=== PATIENT | female | born 1955 | race Caucasian/White ===

== ENCOUNTER 2017-03-08 21:42 | Emergency (ER) | payer BC ==
[2017-03-08] MEDS ORDERED: HYDROmorphone 1 MG/ML SYRINGE IVP STA (22:12)
[2017-03-08] MEDS ORDERED: ONDANSETRON 4 MG/2 ML VIAL IVP STA (22:12)
[2017-03-08] MEDS ORDERED: SODIUM CHLORIDE 0.9% 1,000 ML IV ONE (22:12)
--- NOTE | 2017-03-08 22:15 | ED Physician Documentation ---
PD HPI NVD - Stated complaint Stated Complaint: VOMITING - Chief complaint Chief Complaint: Abd Pain - History obtained from History obtained from: Patient, Family - History of Present Illness Timing - onset: Enter time (0700), Today Timing - duration: Hours Timing - details: Abrupt onset, Still present Associated symptoms: Fever, Abdominal pain, Dizzy, Loss of appetite, Other ( diarrhea) Contributing factors: No: Sick contact Improved by: Vomiting Worsened by: Position, Palpation Similar symptoms before: Diagnosis (abdominal migraine) Recently seen: Not recently seen - Additonal information Additional information: 61 y/o female s/p gastric sleeve placement has developed acute nausea and vomiting this morning with diarrhea. She has a history of abdominal migraine and feels this is different as she does not usually have diarrhea with this. She reports feeling well each day of the preceding week. Review of Systems Constitutional: reports: Fever, Chills Eyes: denies: Decreased vision Ears: denies: Ear pain Nose: denies: Rhinorrhea / runny nose, Congestion Throat: denies: Sore throat Cardiac: denies: Chest pain / pressure, Palpitations Respiratory: denies: Dyspnea, Cough GI: reports: Abdominal Pain, Nausea, Vomiting, Diarrhea : denies: Dysuria, Frequency Skin: denies: Rash Musculoskeletal: reports: Back pain. denies: Neck pain Neurologic: denies: Generalized weakness, Focal weakness, Numbness PD PAST MEDICAL HISTORY - Past Medical History Cardiovascular: Hypertension, High cholesterol, Murmur Respiratory: Sleep apnea, CPAP use Neuro: Motion sickness Endocrine/Autoimmune: Type 1 diabetes GI: GERD, Chronic constipation : Kidney stones Musculoskeletal: Chronic back pain Derm: Eczema - Past Surgical History Past Surgical History: Yes General: Cholecystectomy - Present Medications Home Medications: Ambulatory Orders Medication Instructions Recorded Confirmed Amlodipine Besylate 10 mg PO DAILY 04/08/13 12/27/15 Aspirin Chewable [[place] 81 mg PO ONCE 04/08/13 12/27/15 Aspirin] Insulin Glargine,Hum.rec.anlog 80 unit SQ BID 04/08/13 12/27/15 [Lantus] Omeprazole [PriLOSEC] 20 mg PO BIDAC 04/08/13 12/27/15 Amitriptyline HCl 100 mg PO QPM 08/22/15 12/27/15 Atorvastatin Calcium 40 mg PO QPM 08/22/15 12/27/15 Chlorthalidone 25 mg PO DAILY 08/22/15 12/27/15 Lisinopril 40 mg PO DAILY 08/22/15 12/27/15 metFORMIN [Glucophage] 1,000 mg PO BIDWM 08/22/15 12/27/15 Mupirocin 2% Oint [Bactroban 2% 1 applic TOP TID #15 g 09/21/15 12/27/15 Oint] Sumatriptan [Imitrex] 25 mg PO BID PRN #10 tablet 10/03/15 12/27/15 Polyethylene Glycol 3350 [Miralax] 17 gm PO DAILY #527 gm 02/24/16 Dicyclomine [Bentyl] 20 mg PO QID PRN #20 capsule 03/20/16 Promethazine [Phenergan] 25 - 50 mg PO Q6H PRN #30 tab 03/20/16 Metoclopramide [Reglan] 10 mg PO Q6H PRN #30 tablet 06/07/16 Ondansetron Odt [Zofran] 4 mg TL Q6H PRN #30 tablet 06/07/16 Ondansetron Odt [Zofran] 4 mg TL Q6H PRN #10 tablet 03/09/17 - Allergies Allergies/Adverse Reactions: Allergies Allergy/AdvReac Type Severity Reaction Status Date / Time rosuvastatin calcium * Allergy Hives Verified 03/08/17 21:44 [From [facility]] - Social History Does the pt smoke?: No Smoking Status: Never smoker Does the pt drink ETOH?: No Does the pt have substance abuse?: No - Immunizations Immunizations are current?: Yes - POLST Patient has POLST: No PD ED PE NORMAL - Vitals Vital signs reviewed: Yes (febrile, tachy and hypertensive ) - General General: Well developed/nourished - HEENT HEENT: Atraumatic, PERRL, EOMI - Neck Neck: Supple, no meningeal sign, No bony TTP - Cardiac Cardiac: RRR, Other (2/6 harsh holosystolic murmer at LSB) - Respiratory Respiratory: No respiratory distress, Clear bilaterally - Abdomen Abdomen: Soft, Other (mild epigastric tenderness without garding or rebound. surgical scars are without inflamation. ) - Back Back: No CVA TTP, No spinal TTP - Derm Derm: Normal color, Warm and dry, No rash - Extremities Extremities: No deformity, No edema - Neuro Neuro: No motor deficit, No sensory deficit - Psych Psych: Normal mood, Normal affect Results - Vitals Vitals: Vital Signs - 24 hr 03/08/17 03/08/17 03/08/17 21:44 22:20 22:47 Temperature 37.6 C H 37.8 C H Heart Rate 107 H 83 104 H Respiratory 18 18 16 Rate Blood Pressure 165/81 H 104/62 169/67 H O2 Saturation 99 96 99 03/08/17 03/08/17 03/09/17 22:50 22:51 00:37 Temperature 37.0 C Heart Rate 96 96 93 Respiratory 15 Rate Blood Pressure 95/47 L 100/55 L O2 Saturation 78 L 99 95 Oxygen O2 Source Room air - Labs Labs: Laboratory Tests 03/08/17 03/08/17 03/08/17 22:43 22:43 22:43 WBC 9.5 RBC 4.04 L Hgb 12.0 Hct 36.9 L MCV 91.3 MCH 29.8 MCHC 32.6 RDW 14.6 Plt Count 222 MPV 8.7 Neut # 8.7 H Lymph # 0.7 L [place] # 0.2 Eos # 0.0 Baso # 0.0 Absolute Nucleated RBC 0.00 Nucleated RBCs 0.0 Sodium 141 Potassium 4.0 Chloride 104 Carbon Dioxide 23 Anion Gap 14.0 H BUN 42 H Creatinine 1.4 H Estimated GFR (MDRD) 38 L Glucose 328 H Calcium 9.6 Total Bilirubin 0.6 AST 28 ALT 48 Alkaline Phosphatase 120 Troponin I 0.04 Total Protein 7.3 Albumin 4.2 Globulin 3.1 Albumin/Globulin Ratio 1.4 Lipase 30 Urine Color Urine Clarity Urine pH Ur Specific [place] Urine Protein Urine Glucose (UA) Urine Ketones Urine Occult Blood Urine Nitrite Urine Bilirubin Urine Urobilinogen Ur Leukocyte Esterase Urine RBC Urine WBC Ur Squamous Epith Cells Urine Bacteria Ur Microscopic Review Urine Culture Comments 03/09/17 00:24 WBC RBC Hgb Hct MCV MCH MCHC RDW Plt Count MPV Neut # Lymph # [place] # Eos # Baso # Absolute Nucleated RBC Nucleated RBCs Sodium Potassium Chloride Carbon Dioxide Anion Gap BUN Creatinine Estimated GFR (MDRD) Glucose Calcium Total Bilirubin AST ALT Alkaline Phosphatase Troponin I Total Protein Albumin Globulin Albumin/Globulin Ratio Lipase Urine Color YELLOW Urine Clarity CLEAR Urine pH 5.5 Ur Specific [place] 1.025 Urine Protein 30 H Urine Glucose (UA) 500 H Urine Ketones TRACE Urine Occult Blood TRACE-LYSE Urine Nitrite NEGATIVE Urine Bilirubin NEGATIVE Urine Urobilinogen 0.2 (NORMAL) Ur Leukocyte Esterase NEGATIVE Urine RBC 0-5 Urine WBC 0-3 Ur Squamous Epith Cells RARE Squamous Urine Bacteria None Seen Ur Microscopic Review INDICATED Urine Culture Comments NOT INDICATED PD MEDICAL DECISION MAKING - ED course Complexity details: reviewed old records, reviewed results, re-evaluated patient , considered differential, d/w patient, d/w family ED course: 61 y/o female feels improved after fluids pain medication and zofran. Departure - Departure Disposition: 01 Home, Self Care Clinical Impression: Abdominal migraine, not intractable Condition: Stable Instructions: ED Diet Vomiting Diarrhea Follow-Up: Valerie Haque MD [Primary Care Provider] - Prescriptions: Ondansetron Odt [Zofran] 4 mg TL Q6H PRN #10 tablet PRN Reason: Nausea / Vomiting
[2017-03-08] MEDS ORDERED: ONDANSETRON 4 MG/2 ML VIAL ONE (22:45)
[2017-03-08] MEDS ORDERED: HYDROmorphone 1 MG/ML SYRINGE ONE (22:45)
[2017-03-08 22:51] LABS: BASOPHILS % (AUTO) 0.3 %; HCT - HEMATOCRIT 36.9 % (37.0-47.0); LYMPHOCYTES # (AUTO) 0.7 10^3/uL (1.5-3.5); MEAN CORPUSCULAR HEMOGLOBIN 29.8 pg (27.0-31.0); MEAN CORPUSCULAR HGB CONC 32.6 g/dL (32.0-36.0); MEAN CORPUSCULAR VOLUME 91.3 fL (81.0-99.0); MEAN PLATELET VOLUME 8.7 fL (7.9-10.8); MONOCYTES # (AUTO) 0.2 10^3/uL (0.0-1.0); MONOCYTES % (AUTO) 1.7 %; NEUTROPHILS # (AUTO) 8.7 10^3/uL (1.5-6.6); RED BLOOD COUNT 4.04 10^6/uL (4.20-5.40); RED CELL DISTRIBUTION WIDTH 14.6 % (12.0-15.0); UNCORRECTED WHITE BLOOD COUNT 9.5 x10^3/uL; WHITE BLOOD COUNT 9.5 x10^3/uL (4.8-10.8)
[2017-03-08 23:19] LABS: ALBUMIN/GLOBULIN RATIO 1.4 (1.0-2.2); BILIRUBIN,TOTAL 0.6 mg/dL (0.2-1.0); CALCIUM 9.6 mg/dL (8.5-10.3); CREATININE 1.4 mg/dL (0.4-1.0); TOTAL PROTEIN 7.3 g/dL (6.7-8.2)
[2017-03-09 00:33] LABS: BILIRUBIN,URINE NEGATIVE (NEGATIVE); PH,URINE 5.5 PH (5.0-7.5); UA w/ MICROSCOPIC CHARGE YES
[2017-03-09 00:37] VITALS: BP 100/55
[2017-03-09 00:40] LABS: UR CULTURE IF IND NOT INDICATED; WBC,URINE 0-3 /HPF (0-5)
== END 2017-03-09 00:57 | disposition home or self-care (01) ==
LOC: ED 21:42
DX: G43.D0 Abdominal migraine, not intractable (principal); I10 Essential (primary) hypertension; E10.9 Type 1 diabetes mellitus without complications; Z79.4 Long term (current) use of insulin; Z79.82 Long term (current) use of aspirin
CPT/HCPCS: 36415; 80053; 81001; 83690; 84484; 85025; 96374; 96375; 99283; 99284; J1170; 81003; 87086

== ENCOUNTER 2018-10-08 10:29 | Outpatient (CLI) | payer BC | END 2018-10-08 10:30 | disposition home or self-care (01) | LOC: RT 10:29 | PROVIDERS: ATTEND Internal Medicine Cardiovascular Disease | DX: Z95.2 Presence of prosthetic heart valve (principal) | CPT/HCPCS: 93005 ==

== ENCOUNTER 2019-06-28 09:58 | Outpatient (CLI) | payer BC ==
--- NOTE | 2019-06-28 16:43 | Mammography Report ---
Reason: ROUTINE MAMMO Procedure Date: 06/28/2019 Accession Number: [id number] / [id number] Procedure: MGS - Screening Mammo Dig Bilat CPT Code: FULL RESULT: EXAM: Screening Mammo Dig Bilat DATE: 06/28/2019 10:28 AM CLINICAL HISTORY: Routine screening. No reported personal or family history of breast cancer. TECHNIQUE: (B) - Bilateral CC and MLO views were obtained. COMPARISON: None PARENCHYMAL PATTERN: (A) - The breasts demonstrate scattered fibroglandular densities bilaterally. FINDINGS: Bilateral breasts: There are no suspicious masses, calcifications, or areas of distortion. IMPRESSION: Negative examination. BI-RADS category 1. RECOMMENDATION: (ANNUAL) - Recommend routine annual screening mammography. BI-RADS CATEGORY: (1) - Negative. STANDARD QUALIFYING STATEMENTS: 1. This examination was reviewed with the aid of Computer-Aided Detection (CAD). 2. A negative or benign imaging report should not preclude biopsy if clinically suspicious findings are present. 3. Dense breasts may obscure an underlying neoplasm. 4. This examination was reviewed without the aid of 3D breast imaging (tomosynthesis).
== END 2019-06-28 09:59 | disposition home or self-care (01) ==
LOC: DI.S 09:58
DX: Z12.31 Encounter for screening mammogram for malignant neoplasm of breast (principal)
CPT/HCPCS: 77067

== ENCOUNTER 2019-08-28 07:03 | Emergency (ER) | payer BC ==
[2019-08-28] MEDS ORDERED: SODIUM CHLORIDE 0.9% 1,000 ML IV ONE (07:33)
[2019-08-28] MEDS ORDERED: ONDANSETRON 4 MG/2 ML VIAL IVP STA (07:33)
[2019-08-28 07:34] LABS: BILIRUBIN,URINE NEGATIVE (NEGATIVE); GLUCOSE, URINE (UA) 500 mg/dL (NEGATIVE); KETONES,URINE (UA) NEGATIVE (NEGATIVE); LEUKOCYTE ESTERASE, URINE SMALL (NEGATIVE); NITRITE,URINE NEGATIVE (NEGATIVE); OCCULT BLOOD,URINE MODERATE (NEGATIVE); PH,URINE 6.5 PH (5.0-7.5); PROTEIN,URINE 100 mg/dL (NEGATIVE); UROBILINOGEN,URINE 0.2 (NORMAL) E.U./dL (NORMAL)
[2019-08-28] MEDS ORDERED: MORPHINE 10 MG/ML VIAL IVP STA (07:34)
[2019-08-28] MEDS ORDERED: FAMOTIDINE 20 MG/2 ML VIAL IVP STA (07:34)
[2019-08-28 07:55] LABS: BASOPHILS % (AUTO) 0.1 %; HGB - HEMOGLOBIN 11.3 g/dL (12.0-16.0); LYMPHOCYTES # (AUTO) 0.5 10^3/uL (1.5-3.5); MEAN CORPUSCULAR HEMOGLOBIN 29.7 pg (27.0-31.0); MEAN CORPUSCULAR HGB CONC 31.9 g/dL (32.0-36.0); MEAN CORPUSCULAR VOLUME 92.9 fL (81.0-99.0); MEAN PLATELET VOLUME 10.1 fL (7.9-10.8); MONOCYTES # (AUTO) 0.1 10^3/uL (0.0-1.0); MONOCYTES % (AUTO) 1.6 %; NEUTROPHILS # (AUTO) 7.5 10^3/uL (1.5-6.6); NEUTROPHILS % (AUTO) 91.8 %; PLT - PLATELET COUNT 199 10^3/uL (130-450); RED BLOOD COUNT 3.81 10^6/uL (4.20-5.40); RED CELL DISTRIBUTION WIDTH 13.2 % (12.0-15.0); WHITE BLOOD COUNT 8.2 x10^3/uL (4.8-10.8)
[2019-08-28 07:58] LABS: CLARITY,URINE SL. CLOUDY (CLEAR)
[2019-08-28 08:00] LABS: BACTERIA,URINE Many /HPF (None Seen); SQUAMOUS EPITHELIAL CELL,UR RARE Squamous (<= Few); WBC CLUMPS,URINE PRESENT
[2019-08-28 08:05] LABS: ALBUMIN 4.4 g/dL (3.2-5.5); ALBUMIN/GLOBULIN RATIO 1.4 (1.0-2.2); BILIRUBIN,TOTAL 0.6 mg/dL (0.2-1.0); CALCIUM 9.4 mg/dL (8.5-10.3); CREATININE 1.8 mg/dL (0.4-1.0); MAGNESIUM 2.5 mg/dL (1.7-2.8); TOTAL PROTEIN 7.6 g/dL (6.7-8.2)
[2019-08-28] MEDS ORDERED: cefTRIAXone 1 GM VIAL IVP STA (08:28)
[2019-08-28] MEDS ORDERED: HALOPERIDOL 5 MG/ML VIAL IVP ONE (08:28)
[2019-08-28 10:34] VITALS: BP 140/73
--- NOTE | 2019-08-28 10:38 | ED Physician Documentation ---
PD HPI NVD - Stated complaint Stated Complaint: VOMITING - Chief complaint Chief Complaint: General - History obtained from History obtained from: Patient - History of Present Illness Timing - onset: Last night Timing - details: Abrupt onset, Still present Associated symptoms: Abdominal pain (mild lower abd after vomiting and diarrhea). No: Fever, Near syncope / syncope Contributing factors: No: Sick contact, Bad food, Travel Improved by: No: Vomiting Worsened by: Eating Similar symptoms before: Has not had sx before Recently seen: Not recently seen Review of Systems Constitutional: reports: Fatigue. denies: Fever, Chills Nose: denies: Rhinorrhea / runny nose, Congestion Throat: denies: Sore throat Respiratory: denies: Cough GI: reports: Abdominal Pain, Nausea, Vomiting, Diarrhea. denies: Abdominal Swelling : denies: Dysuria, Frequency PD PAST MEDICAL HISTORY - Past Medical History Past Medical History: Yes Cardiovascular: Hypertension, High cholesterol, Murmur Respiratory: Sleep apnea, CPAP use Endocrine/Autoimmune: Type 1 diabetes GI: GERD, Chronic constipation : Kidney stones Musculoskeletal: Chronic back pain Derm: Eczema - Past Surgical History Past Surgical History: Yes General: Cholecystectomy - Present Medications Home Medications: Ambulatory Orders Medication Instructions Recorded Confirmed Aspirin Chewable [[facility] [place] 81 mg PO ONCE 04/08/13 08/28/19 Aspirin] Omeprazole [PriLOSEC] 20 mg PO DAILY 04/08/13 10/08/18 Atorvastatin Calcium 40 mg PO QPM 08/22/15 10/08/18 Lisinopril 40 mg PO DAILY 08/22/15 10/08/18 Cephalexin [Keflex] 500 mg PO TID #15 capsule 08/28/19 Diphenoxylate/Atropine [Lomotil] 1 each PO QID PRN #12 tablet 08/28/19 Furosemide [Lasix] 20 mg PO DAILY 08/28/19 08/28/19 Insulin Glargine [Lantus Solostar] 25 unit SUBQ BID 08/28/19 08/28/19 Ondansetron Odt [Zofran] 4 mg TL Q6H PRN #10 tablet 08/28/19 amLODIPine [Norvasc] 10 mg PO DAILY 08/28/19 08/28/19 - Allergies Allergies/Adverse Reactions: Allergies Allergy/AdvReac Type Severity Reaction Status Date / Time rosuvastatin calcium * Allergy Hives Verified 03/08/17 21:44 [From [facility]] - Social History Does the pt smoke?: No Smoking Status: Never smoker Does the pt drink ETOH?: No Does the pt have substance abuse?: No - Immunizations Immunizations are current?: Yes - POLST Patient has POLST: No PD ED PE NORMAL - Vitals Vital signs reviewed: Yes - General General: Alert and oriented X 3, No acute distress (holding emesis bag with some dry heaving. ), Well developed/nourished - HEENT HEENT: Moist mucous membranes, Pharynx benign - Neck Neck: Supple, no meningeal sign, No adenopathy - Cardiac Cardiac: RRR, No murmur - Respiratory Respiratory: Clear bilaterally - Abdomen Abdomen: Soft, Non distended, No organomegaly, Other (some tender nonfocally in mid to lower abd without guarding nor percussion tenderness. ) - Female Female : Deferred - Rectal Rectal: Deferred - Back Back: No CVA TTP - Derm Derm: Normal color, Warm and dry - Extremities Extremities: Normal ROM s pain, No edema, No calf tenderness / cord Results - Vitals Vitals: Vital Signs - 24 hr 08/28/19 08/28/19 08/28/19 07:17 08:45 08:52 Temperature 36.5 C Heart Rate 101 H 93 Respiratory 20 17 Rate Blood Pressure 175/61 H 156/72 H O2 Saturation 95 82 L 96 08/28/19 08/28/19 08/28/19 09:30 09:39 10:00 Temperature Heart Rate 83 84 Respiratory 16 15 Rate Blood Pressure 106/64 140/73 H O2 Saturation 98 98 98 Oxygen O2 Source Room air - Labs Labs: Laboratory Tests 08/28/19 08/28/19 08/28/19 07:24 07:40 07:40 WBC 8.2 RBC 3.81 L Hgb 11.3 L Hct 35.4 L MCV 92.9 MCH 29.7 MCHC 31.9 L RDW 13.2 Plt Count 199 MPV 10.1 Neut # (Auto) 7.5 H Lymph # (Auto) 0.5 L [place] # (Auto) 0.1 Eos # (Auto) 0.0 Baso # (Auto) 0.0 Absolute Nucleated RBC 0.00 Nucleated RBC % 0.0 Sodium 142 Potassium 4.3 Chloride 107 Carbon Dioxide 23 Anion Gap 12.0 BUN 58 H Creatinine 1.8 H Estimated GFR (MDRD) 28 L Glucose 290 H Calcium 9.4 Magnesium 2.5 Total Bilirubin 0.6 AST 30 ALT 27 Alkaline Phosphatase 65 Total Protein 7.6 Albumin 4.4 Globulin 3.2 Albumin/Globulin Ratio 1.4 Lipase 38 Urine Color YELLOW Urine Clarity SL. CLOUDY Urine pH 6.5 Ur Specific [place] 1.015 Urine Protein 100 H Urine Glucose (UA) 500 H Urine Ketones NEGATIVE Urine Occult Blood MODERATE H Urine Nitrite NEGATIVE Urine Bilirubin NEGATIVE Urine Urobilinogen 0.2 (NORMAL) Ur Leukocyte Esterase SMALL H Urine RBC 6-10 H Urine WBC >25 H Urine WBC Clumps PRESENT Ur Squamous Epith Cells RARE Squamous Urine Bacteria Many H Ur Microscopic Review INDICATED Urine Culture Comments INDICATED PD MEDICAL DECISION MAKING - ED course Complexity details: re-evaluated patient (improved symptoms and abd minimally tender lower abd. Low suspicion for divertic/appy, and patient comfortable going home with shared decision making. ), considered differential (likely viral GE. She does have UTI, but I think is incidental. ), d/w patient Departure - Departure Disposition: Home, Self Care Clinical Impression: Nausea vomiting and diarrhea UTI (urinary tract infection) Qualifiers: Urinary tract infection type: acute cystitis Hematuria presence: without hematuria Qualified Code(s): N30.00 - Acute cystitis without hematuria Condition: Stable Record reviewed to determine appropriate education?: Yes Instructions: ED Diet Vomiting Diarrhea Follow-Up: Valerie Haque MD [Primary Care Provider] - Prescriptions: Cephalexin [Keflex] 500 mg PO TID #15 capsule Diphenoxylate/Atropine [Lomotil] 1 each PO QID PRN #12 tablet PRN Reason: Diarrhea Ondansetron Odt [Zofran] 4 mg TL Q6H PRN #10 tablet PRN Reason: Nausea / Vomiting Comments: This most likely is a viral illness and may last for a day or 2. Use ondansetron if needed for nausea and Lomotil for diarrhea. Tylenol for cramps or pains. Recheck if not improved well over the next day or 2 back to normal. Return if worse again or any localized pain consistently, fevers, bloody stools, other concerns. There is sign of a bladder infection on his urine test. This likely is incidental and not the cause of your diarrhea and such. Discharge Date/Time: 08/28/19 10:54
== END 2019-08-28 10:54 | disposition home or self-care (01) ==
LOC: ED 07:03
DX: R11.2 Nausea with vomiting, unspecified (principal); R19.7 Diarrhea, unspecified; N30.00 Acute cystitis without hematuria; I10 Essential (primary) hypertension; E10.9 Type 1 diabetes mellitus without complications; Z87.442 Personal history of urinary calculi; Z79.82 Long term (current) use of aspirin
CPT/HCPCS: 36415; 80053; 81001; 81003; 83690; 83735; 85025; 87086; 87181; 96361; 96374; 96375; 99284

== ENCOUNTER 2019-10-03 22:20 | Emergency (ER) | payer BC ==
--- NOTE | 2019-10-03 22:31 | ED Physician Documentation ---
PD HPI ABD PAIN - Stated complaint Stated Complaint: N/V - Chief complaint Chief Complaint: Abd Pain - History obtained from History obtained from: Patient - History of Present Illness Timing - onset: How many hours ago (5), Today Timing - duration: Hours (5) Timing - details: Abrupt onset, Still present Quality: Cramping, Aching, Pain Location: Suprapubic, LLQ Radiation: Lower back Improved by: No: Vomiting Worsened by: Palpation. No: Breathing, Position Associated symptoms: Nausea, Vomiting (few times), Diarrhea (loose movements few times), Other (sugars have been okay recently. No URI symptoms.). No: Fever, Constipation, Dysuria Similar symptoms before: No diagnosis (had similar a month ago, improved with fluids/meds. Has had similar episodes remotely in past.) Recently seen: Emergency Dept (1 month ago, with similar symptoms. Improved after 1-2 days anf thought viral GE.) Review of Systems Constitutional: denies: Fever, Chills Nose: denies: Rhinorrhea / runny nose, Congestion Throat: denies: Sore throat Respiratory: denies: Cough GI: reports: Abdominal Pain (lower abd into lower back), Nausea, Vomiting, Diarrhea. denies: Abdominal Swelling, Constipation, Hematemesis, Bloody / black stool : denies: Dysuria, Frequency Musculoskeletal: reports: Back pain. denies: Neck pain Neurologic: reports: Generalized weakness. denies: Altered mental status, Headache PD PAST MEDICAL HISTORY - Past Medical History Cardiovascular: Hypertension, High cholesterol, Murmur Respiratory: Sleep apnea, CPAP use Endocrine/Autoimmune: Type 1 diabetes GI: GERD, Chronic constipation : Kidney stones Musculoskeletal: Chronic back pain Derm: Eczema - Past Surgical History Past Surgical History: Yes General: Cholecystectomy - Present Medications Home Medications: Ambulatory Orders Medication Instructions Recorded Confirmed Aspirin Chewable [[facility] [place] 81 mg PO ONCE 04/08/13 08/28/19 Aspirin] Omeprazole [PriLOSEC] 20 mg PO DAILY 04/08/13 10/08/18 Atorvastatin Calcium 40 mg PO QPM 08/22/15 10/08/18 lisinopriL [Lisinopril] 40 mg PO DAILY 08/22/15 10/08/18 Cephalexin [Keflex] 500 mg PO TID #15 capsule 08/28/19 Diphenoxylate/Atropine [Lomotil] 1 each PO QID PRN #12 tablet 08/28/19 Furosemide [Lasix] 20 mg PO DAILY 08/28/19 08/28/19 Insulin Glargine [Lantus Solostar] 25 unit SUBQ BID 08/28/19 08/28/19 Ondansetron Odt [Zofran] 4 mg TL Q6H PRN #10 tablet 08/28/19 amLODIPine [Norvasc] 10 mg PO DAILY 08/28/19 08/28/19 Dicyclomine [Bentyl] 10 mg PO QID PRN #15 capsule 10/04/19 Ondansetron Odt [Zofran] 4 mg TL Q6H PRN #10 tablet 10/04/19 - Allergies Allergies/Adverse Reactions: Allergies Allergy/AdvReac Type Severity Reaction Status Date / Time rosuvastatin calcium * Allergy Hives Verified 10/03/19 22:26 [From [facility]] - Social History Does the pt smoke?: No Smoking Status: Never smoker Does the pt drink ETOH?: No Does the pt have substance abuse?: No - Immunizations Immunizations are current?: Yes - POLST Patient has POLST: No PD ED PE NORMAL - Vitals Vital signs reviewed: Yes - General General: Alert and oriented X 3, Well developed/nourished, Other (Appears uncomfortable related to nausea and is having some mild emesis and holding an emesis bag. Her emesis is slightly bilious in fluid without any blood.) - HEENT HEENT: Ears normal, Moist mucous membranes, Pharynx benign - Neck Neck: Supple, no meningeal sign, No adenopathy - Cardiac Cardiac: RRR, No murmur - Respiratory Respiratory: Clear bilaterally - Abdomen Abdomen: Soft, Non distended, No organomegaly, Other (Umbilical hernia noted which is soft and nontender and reducible. markedly obese.). No: Normal bowel sounds (diminished) - Female Female : Deferred - Rectal Rectal: Deferred - Back Back: No CVA TTP - Derm Derm: Normal color, Warm and dry - Extremities Extremities: No tenderness to palpate, Normal ROM s pain - Neuro Neuro: Alert and oriented X 3, No motor deficit, Normal speech Results - Vitals Vitals: Vital Signs - 24 hr 10/03/19 10/04/19 10/04/19 22:23 00:07 00:49 Temperature 36.7 C Heart Rate 95 87 77 Respiratory 20 18 16 Rate Blood Pressure 177/71 H 172/67 H 140/94 H O2 Saturation 96 99 96 10/04/19 10/04/19 02:03 03:15 Temperature 36.9 C Heart Rate 89 72 Respiratory 14 Rate Blood Pressure 102/45 L 123/59 L O2 Saturation 96 98 Oxygen O2 Source Nasal cannula Oxygen Flow Rate 3.5 - Labs Labs: Laboratory Tests 10/03/19 10/03/19 10/03/19 23:00 23:00 23:00 WBC 9.3 RBC 3.74 L Hgb 10.7 L Hct 35.4 L MCV 94.7 MCH 28.6 MCHC 30.2 L RDW 13.4 Plt Count 247 MPV 10.3 Neut # (Auto) 7.8 H Lymph # (Auto) 0.9 L [place] # (Auto) 0.4 Eos # (Auto) 0.1 Baso # (Auto) 0.0 Absolute Nucleated RBC 0.00 Nucleated RBC % 0.0 VBG pH 7.444 H VBG pCO2 33.1 L VBG pO2 52.2 H VBG HCO3 22.2 L VBG Total CO2 23.2 L VBG O2 Saturation 87.7 H VBG Base Excess -1.3 Sodium 142 Potassium 4.6 Chloride 107 Carbon Dioxide 22 Anion Gap 13.0 BUN 56 H Creatinine 2.2 H Estimated GFR (MDRD) 22 L Glucose 286 H Calcium 9.1 Magnesium 2.4 Total Bilirubin 0.6 AST 27 ALT 24 Alkaline Phosphatase 57 Total Protein 7.0 Albumin 4.2 Globulin 2.8 Albumin/Globulin Ratio 1.5 Lipase 63 H Urine Color Urine Clarity Urine pH Ur Specific [place] Urine Protein Urine Glucose (UA) Urine Ketones Urine Occult Blood Urine Nitrite Urine Bilirubin Urine Urobilinogen Ur Leukocyte Esterase Urine RBC Urine WBC Ur Squamous Epith Cells Urine Bacteria Ur Microscopic Review Urine Culture Comments Serum Ketones NEGATIVE 10/03/19 23:50 WBC RBC Hgb Hct MCV MCH MCHC RDW Plt Count MPV Neut # (Auto) Lymph # (Auto) [place] # (Auto) Eos # (Auto) Baso # (Auto) Absolute Nucleated RBC Nucleated RBC % VBG pH VBG pCO2 VBG pO2 VBG HCO3 VBG Total CO2 VBG O2 Saturation VBG Base Excess Sodium Potassium Chloride Carbon Dioxide Anion Gap BUN Creatinine Estimated GFR (MDRD) Glucose Calcium Magnesium Total Bilirubin AST ALT Alkaline Phosphatase Total Protein Albumin Globulin Albumin/Globulin Ratio Lipase Urine Color YELLOW Urine Clarity CLEAR Urine pH 7.0 Ur Specific [place] 1.015 Urine Protein 30 H Urine Glucose (UA) 500 H Urine Ketones NEGATIVE Urine Occult Blood TRACE-INTA Urine Nitrite NEGATIVE Urine Bilirubin NEGATIVE Urine Urobilinogen 0.2 (NORMAL) Ur Leukocyte Esterase NEGATIVE Urine RBC 0-5 Urine WBC 0-3 Ur Squamous Epith Cells RARE Squamous Urine Bacteria Rare Ur Microscopic Review INDICATED Urine Culture Comments NOT INDICATED Serum Ketones - Rads (name of study) abd CT Radiology: Prelim report reviewed, EMP read contemporaneously (done without contrast due to low GFR), See rad report PD MEDICAL DECISION MAKING - ED course Complexity details: re-evaluated patient (She did feel much improved after several rounds of medicine and was able to then take oral fluids and some crackers. She felt able to be discharged home.), considered differential (Consider viral gastroenteritis versus urinary tract process or diverticulitis. No history of colitis regularly. She is diabetic so consider gastroparesis. Her hernia is soft and reducible so does not seem obstruction related to that. Onset of her symptoms was after eating so consider food related. ), d/w patient Departure - Departure Disposition: 01 Home, Self Care Clinical Impression: Nausea and vomiting Qualifiers: Vomiting type: unspecified Vomiting Intractability: intractable Qualified Code(s): R11.2 - Nausea with vomiting, unspecified Condition: Stable Record reviewed to determine appropriate education?: Yes Instructions: ED Nausea Vomiting Follow-Up: Valerie Haque MD [Primary Care Provider] - Prescriptions: Dicyclomine [Bentyl] 10 mg PO QID PRN #15 capsule PRN Reason: Abdominal Pain Ondansetron Odt [Zofran] 4 mg TL Q6H PRN #10 tablet PRN Reason: Nausea / Vomiting Comments: Small frequent fluids and usual medications. [place] food initially and progress as tolerated. Ondansetron if needed for nausea. Dicyclomine if needed for abdominal cramps or pains. Add Tylenol if needed. Recheck if not improved consistently over the next couple of days and return if worsening. Your blood tests and CT scan did not show any obvious acute cause. This may be some intestinal dysfunction (gastroparesis) or a mild infectious process such as a viral stomach flu or even food related. Most of these will be short lived for just a day or 2 and then improve. Discharge Date/Time: 10/04/19 03:15
[2019-10-03] MEDS ORDERED: SODIUM CHLORIDE 0.9% 1,000 ML IV ONE (22:44)
[2019-10-03] MEDS ORDERED: ONDANSETRON 4 MG/2 ML VIAL IVP STA (22:44)
[2019-10-03] MEDS ORDERED: MORPHINE 10 MG/ML VIAL IVP STA (22:44)
[2019-10-03 23:05] LABS: BASOPHILS % (AUTO) 0.4 %; EOSINOPHILS # (AUTO) 0.1 10^3/uL (0.0-0.7); EOSINOPHILS % (AUTO) 0.8 %; HGB - HEMOGLOBIN 10.7 g/dL (12.0-16.0); LYMPHOCYTES # (AUTO) 0.9 10^3/uL (1.5-3.5); LYMPHOCYTES % (AUTO) 9.8 %; MEAN CORPUSCULAR HEMOGLOBIN 28.6 pg (27.0-31.0); MEAN CORPUSCULAR HGB CONC 30.2 g/dL (32.0-36.0); MEAN CORPUSCULAR VOLUME 94.7 fL (81.0-99.0); MEAN PLATELET VOLUME 10.3 fL (7.9-10.8); MONOCYTES # (AUTO) 0.4 10^3/uL (0.0-1.0); MONOCYTES % (AUTO) 4.3 %; NEUTROPHILS # (AUTO) 7.8 10^3/uL (1.5-6.6); NEUTROPHILS % (AUTO) 84.3 %; PLT - PLATELET COUNT 247 10^3/uL (130-450); RED BLOOD COUNT 3.74 10^6/uL (4.20-5.40); RED CELL DISTRIBUTION WIDTH 13.4 % (12.0-15.0); VBG BASE EXCESS -1.3 mmol/L (-2 - +2); VBG PCO2 33.1 mmHg (41-51); VBG PH 7.444 (7.31-7.41); VBG PO2 52.2 mmHg (25-47); VBG TOTAL CO2 23.2 mmol/L (24-29); WHITE BLOOD COUNT 9.3 x10^3/uL (4.8-10.8)
[2019-10-03 23:11] LABS: KETONES, SERUM (ACETEST) NEGATIVE (NEGATIVE)
[2019-10-03 23:24] LABS: ALBUMIN 4.2 g/dL (3.2-5.5); ALBUMIN/GLOBULIN RATIO 1.5 (1.0-2.2); ALKALINE PHOSPHATASE 57 IU/L (42-121); ALT ALANINE AMINOTRANSFERASE 24 IU/L (10-60); AST ASPARTATE AMINOTRANSFERASE 27 IU/L (10-42); BILIRUBIN,TOTAL 0.6 mg/dL (0.2-1.0); BUN - BLOOD UREA NITROGEN 56 mg/dL (6-20); CALCIUM 9.1 mg/dL (8.5-10.3); CARBON DIOXIDE - CO2 22 mmol/L (21-32); CHLORIDE 107 mmol/L (101-111); CREATININE 2.2 mg/dL (0.4-1.0); GFR - MDRD 22 (>89); GLUCOSE 286 mg/dL (70-100); LIPASE 63 U/L (22-51); MAGNESIUM 2.4 mg/dL (1.7-2.8); SODIUM 142 mmol/L (135-145)
[2019-10-03] MEDS ORDERED: PROCHLORPERAZINE 10 MG/2 ML VIAL IVP STA (23:48)
[2019-10-04 00:02] LABS: BILIRUBIN,URINE NEGATIVE (NEGATIVE); GLUCOSE, URINE (UA) 500 mg/dL (NEGATIVE); KETONES,URINE (UA) NEGATIVE (NEGATIVE); LEUKOCYTE ESTERASE, URINE NEGATIVE (NEGATIVE); NITRITE,URINE NEGATIVE (NEGATIVE); OCCULT BLOOD,URINE TRACE-INTA (NEGATIVE); PROTEIN,URINE 30 mg/dL (NEGATIVE); UROBILINOGEN,URINE 0.2 (NORMAL) E.U./dL (NORMAL)
[2019-10-04 00:04] LABS: CLARITY,URINE CLEAR (CLEAR)
[2019-10-04] MEDS ORDERED: SODIUM CHLORIDE 0.9% 1,000 ML IV ONE (00:04)
[2019-10-04 00:15] LABS: BACTERIA,URINE Rare /HPF (None Seen); RBC,URINE 0-5 /HPF (0-5); SQUAMOUS EPITHELIAL CELL,UR RARE Squamous (<= Few)
[2019-10-04] MEDS ORDERED: HYDROmorphone 1 MG/ML CARPUJECT IVP STA (01:14)
[2019-10-04] MEDS ORDERED: diphenhydrAMINE INJ 50 MG/ML VIAL IVP STA (01:14)
[2019-10-04] MEDS ORDERED: PROCHLORPERAZINE 10 MG/2 ML VIAL IVP STA (01:14)
--- NOTE | 2019-10-04 01:42 | CT Report ---
Reason: left abd pain Procedure Date: 10/04/2019 Accession Number: [id number] / [id number] Procedure: CT - Abdomen/Pelvis WO CPT Code: Final Report FULL RESULT: EXAM: CT ABDOMEN AND PELVIS (CT KUB) EXAM DATE: 10/04/2019 01:17 AM. CLINICAL HISTORY: Left abdominal pain. COMPARISONS: ABDOMEN/PELVIS W/ 04/10/2013 3:56 PM. TECHNIQUE: Routine axial helical CT imaging was performed through the abdomen and pelvis without IV contrast, reportedly no IV contrast due to reduced renal function. Reconstructions: Coronal and sagittal. In accordance with CT protocol optimization, one or more of the following dose reduction techniques were utilized for this exam: automated exposure control, adjustment of mA and/or KV based on patient size, or use of iterative reconstructive technique. FINDINGS: Lung Bases: Interstitial edema. Previous TAVR. Severe mitral annular calcifications. No effusion. Small hiatal hernia. Right Kidney/Ureter: Punctate nonobstructing right renal stone. No ureteral stones, hydronephrosis, or hydroureter. No perinephric fat stranding. Left Kidney/Ureter: No renal stones seen. Small parapelvic cysts. No ureteral stones, hydronephrosis, or hydroureter. No perinephric fat stranding. Other Solid Organs: Noncontrast images of the solid organs are grossly unremarkable. Gallbladder/Bile Ducts: Unremarkable postcholecystectomy. Peritoneal Cavity: Small hiatal hernia. Previous gastric sleeve. Colonic diverticulosis without acute diverticulitis seen. Patient has a chronic periumbilical hernia which contains mostly fat but also a knuckle of transverse colon with adjacent edema. No evidence of any significant upstream obstruction however. Hernia defect measures approximately 2.5 x 2.5 cm with a larger 10 x 8 x 12 cm hernia sac. Bowel otherwise appears grossly unremarkable with the exception of a small rectocele. Pelvic Organs: Pelvic floor laxity with small rectocele. Large chronic calcified uterine fibroid posteriorly. No worrisome adnexal masses. Urinary bladder unremarkable. Vasculature: Unremarkable. Other: No definite acute osseous abnormality with chronic compression deformities of T12 and L1 again noted. IMPRESSION: 1. Tiny nonobstructing right renal stone. No ureteral stone or hydronephrosis currently. 2. Periumbilical hernia containing mostly fat but also a knuckle of squeezed transverse colon with mild adjacent edema. No evidence of proximal obstruction however. Early incarceration is possible however in the appropriate clinical setting. 3. Interstitial edema at the lung bases. 4. Severe mitral annular calculations. 5. Small hiatal hernia. 6. Colonic diverticulosis. 7. Previous cholecystectomy and gastric sleeve. 8. Fibroid uterus. RADIA
[2019-10-04] MEDS ORDERED: ONDANSETRON ODT 4 MG Prepack 2 TL PRN (02:58)
[2019-10-04 03:17] VITALS: BP 123/59
== END 2019-10-04 03:15 | disposition home or self-care (01) ==
LOC: ED 22:20
DX: R11.2 Nausea with vomiting, unspecified (principal); R10.32 Left lower quadrant pain; K42.9 Umbilical hernia without obstruction or gangrene; K44.9 Diaphragmatic hernia without obstruction or gangrene; K21.9 Gastro-esophageal reflux disease without esophagitis; D25.9 Leiomyoma of uterus, unspecified; Z90.49 Acquired absence of other specified parts of digestive tract; I10 Essential (primary) hypertension; E10.9 Type 1 diabetes mellitus without complications; Z79.82 Long term (current) use of aspirin
CPT/HCPCS: 36415; 74176; 80053; 81001; 82009; 82803; 83690; 83735; 85025; 96361; 96374; 96375; 99284; 99285; J1170; J1200; 81003; 87086

== ENCOUNTER 2019-11-01 09:52 | Emergency (ER) | payer BC ==
[2019-11-01 11:23] LABS: BASOPHILS % (AUTO) 0.2 %; HGB - HEMOGLOBIN 11.5 g/dL (12.0-16.0); LYMPHOCYTES # (AUTO) 0.6 10^3/uL (1.5-3.5); LYMPHOCYTES % (AUTO) 5.2 %; MEAN CORPUSCULAR HGB CONC 31.9 g/dL (32.0-36.0); MEAN CORPUSCULAR VOLUME 90.7 fL (81.0-99.0); MEAN PLATELET VOLUME 10.5 fL (7.9-10.8); MONOCYTES # (AUTO) 0.2 10^3/uL (0.0-1.0); MONOCYTES % (AUTO) 1.6 %; NEUTROPHILS # (AUTO) 10.1 10^3/uL (1.5-6.6); NEUTROPHILS % (AUTO) 92.6 %; PLT - PLATELET COUNT 254 10^3/uL (130-450); RED BLOOD COUNT 3.97 10^6/uL (4.20-5.40); RED CELL DISTRIBUTION WIDTH 13.5 % (12.0-15.0); WHITE BLOOD COUNT 10.9 x10^3/uL (4.8-10.8)
[2019-11-01 11:24] LABS: BILIRUBIN,URINE NEGATIVE (NEGATIVE); GLUCOSE, URINE (UA) 500 mg/dL (NEGATIVE); KETONES,URINE (UA) NEGATIVE (NEGATIVE); LEUKOCYTE ESTERASE, URINE NEGATIVE (NEGATIVE); NITRITE,URINE NEGATIVE (NEGATIVE); OCCULT BLOOD,URINE SMALL (NEGATIVE); PROTEIN,URINE 100 mg/dL (NEGATIVE); UROBILINOGEN,URINE 0.2 (NORMAL) E.U./dL (NORMAL)
[2019-11-01 11:26] LABS: CLARITY,URINE CLEAR (CLEAR)
[2019-11-01 11:34] LABS: BACTERIA,URINE Rare /HPF (None Seen); RBC,URINE 0-5 /HPF (0-5); SQUAMOUS EPITHELIAL CELL,UR RARE Squamous (<= Few)
[2019-11-01 11:35] LABS: ALBUMIN 4.2 g/dL (3.2-5.5); ALBUMIN/GLOBULIN RATIO 1.3 (1.0-2.2); BILIRUBIN,TOTAL 0.8 mg/dL (0.2-1.0); CALCIUM 9.7 mg/dL (8.5-10.3); CREATININE 1.8 mg/dL (0.4-1.0); TOTAL PROTEIN 7.4 g/dL (6.7-8.2)
[2019-11-01] MEDS ORDERED: ONDANSETRON 4 MG/2 ML VIAL IVP STA (11:42)
[2019-11-01] MEDS ORDERED: HYDROmorphone 1 MG/ML CARPUJECT IVP STA (11:42)
--- NOTE | 2019-11-01 12:21 | ED Physician Documentation ---
PD HPI ABD PAIN - Stated complaint Stated Complaint: NAUSEA - Chief complaint Chief Complaint: Back Pain - History obtained from History obtained from: Patient - History of Present Illness Timing - onset: Today Timing - details: Abrupt onset, Other Quality: Other (Bloating) Associated symptoms: Fever (Subjective), Nausea, Vomiting, Diarrhea Similar symptoms before: Diagnosis (Diverticulosis) Recently seen: Not recently seen - Additional information Additional information: This is a 64-year-old woman who presents with her significant other complaints that she has abdominal pain that she believes secondary to diverticulitis because it feels like when she was here in September. She was diagnosed with diverticuli "a wild ago" on a colonoscopy. Today the pain started about 630 this morning on her left abdomen. She is had nausea vomiting and diarrhea with the last emesis being here in the emergency department. She feels very bloated. She has a subjective fever. She has not seen blood in the vomit or stool. She does not feels short of breath and has not had a cough. No urinary symptoms. She has a known periumbilical hernia but says that it does not hurt her. Review of Systems Constitutional: reports: Fever (Subjective) Nose: denies: Rhinorrhea / runny nose Throat: denies: Sore throat Cardiac: denies: Chest pain / pressure Respiratory: denies: Cough GI: reports: Abdominal Pain, Nausea, Vomiting, Diarrhea : denies: Dysuria Neurologic: denies: Near syncope PD PAST MEDICAL HISTORY - Past Medical History Past Medical History: Yes Cardiovascular: Hypertension, High cholesterol, Murmur Respiratory: Sleep apnea, CPAP use Endocrine/Autoimmune: Type 1 diabetes GI: GERD, Chronic constipation, Diverticulitis : Kidney stones Musculoskeletal: Chronic back pain Derm: Eczema - Past Surgical History Past Surgical History: Yes General: Cholecystectomy - Present Medications Home Medications: Ambulatory Orders Medication Instructions Recorded Confirmed Aspirin Chewable [[place] 81 mg PO ONCE 04/08/13 08/28/19 Aspirin] Omeprazole [PriLOSEC] 20 mg PO DAILY 04/08/13 10/08/18 Atorvastatin Calcium 40 mg PO QPM 08/22/15 10/08/18 lisinopriL [Lisinopril] 40 mg PO DAILY 08/22/15 10/08/18 Cephalexin [Keflex] 500 mg PO TID #15 capsule 08/28/19 Diphenoxylate/Atropine [Lomotil] 1 each PO QID PRN #12 tablet 08/28/19 Furosemide [Lasix] 20 mg PO DAILY 08/28/19 08/28/19 Insulin Glargine [Lantus Solostar] 25 unit SUBQ BID 08/28/19 08/28/19 Ondansetron Odt [Zofran] 4 mg TL Q6H PRN #10 tablet 08/28/19 amLODIPine [Norvasc] 10 mg PO DAILY 08/28/19 08/28/19 Dicyclomine [Bentyl] 10 mg PO QID PRN #15 capsule 10/04/19 Ondansetron Odt [Zofran] 4 mg TL Q6H PRN #10 tablet 10/04/19 Promethazine [Phenergan] 25 mg PO Q6H PRN #10 tab 11/01/19 - Allergies Allergies/Adverse Reactions: Allergies Allergy/AdvReac Type Severity Reaction Status Date / Time rosuvastatin calcium * Allergy Hives Verified 11/01/19 09:57 [From [facility]] - Social History Does the pt smoke?: No Smoking Status: Never smoker Does the pt drink ETOH?: No Does the pt have substance abuse?: No - Immunizations Immunizations are current?: Yes - POLST Patient has POLST: No PD ED PE NORMAL - Vitals Vital signs reviewed: Yes - General General: Alert and oriented X 3, No acute distress, Well developed/nourished, Other (Morbidly obese 64-year-old woman who is sitting with an emesis bag. She occasionally goes to counter dry heaves but no vomiting.) - HEENT HEENT: Atraumatic, Other (No scleral icterus) - Neck Neck: Supple, no meningeal sign, No adenopathy - Cardiac Cardiac: RRR, Strong equal pulses, Other (There is a soft systolic murmur heard at the left upper sternal border. She had a prior TVAR) - Respiratory Respiratory: No respiratory distress, Clear bilaterally - Abdomen Abdomen: Normal bowel sounds, Soft, Other (There is quite an impressive umbilical hernia that is quite soft. Do not feel any firm lumps and there is no tenderness. The remainder of her abdomen is completely soft with no pain with palpation. 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, No motor deficit, No sensory deficit, Normal speech - Psych Psych: Normal mood, Normal affect Results - Vitals Vitals: Vital Signs - 24 hr 11/01/19 11/01/19 09:57 12:47 Temperature 37 C 36.6 C Heart Rate 102 H 90 Respiratory 22 16 Rate Blood Pressure 171/70 H 136/70 H O2 Saturation 96 97 Oxygen O2 Source Room air - Labs Labs: Laboratory Tests 11/01/19 11/01/19 11/01/19 11:10 11:10 11:10 WBC 10.9 H RBC 3.97 L Hgb 11.5 L Hct 36.0 L MCV 90.7 MCH 29.0 MCHC 31.9 L RDW 13.5 Plt Count 254 MPV 10.5 Neut # (Auto) 10.1 H Lymph # (Auto) 0.6 L [place] # (Auto) 0.2 Eos # (Auto) 0.0 Baso # (Auto) 0.0 Absolute Nucleated RBC 0.00 Nucleated RBC % 0.0 Sodium 145 Potassium 4.2 Chloride 108 Carbon Dioxide 24 Anion Gap 13.0 BUN 48 H Creatinine 1.8 H Estimated GFR (MDRD) 28 L Glucose 339 H Calcium 9.7 Total Bilirubin 0.8 AST 28 ALT 27 Alkaline Phosphatase 66 Total Protein 7.4 Albumin 4.2 Globulin 3.2 Albumin/Globulin Ratio 1.3 Lipase 46 Urine Color YELLOW Urine Clarity CLEAR Urine pH 7.0 Ur Specific [place] 1.015 Urine Protein 100 H Urine Glucose (UA) 500 H Urine Ketones NEGATIVE Urine Occult Blood SMALL H Urine Nitrite NEGATIVE Urine Bilirubin NEGATIVE Urine Urobilinogen 0.2 (NORMAL) Ur Leukocyte Esterase NEGATIVE Urine RBC 0-5 Urine WBC 0-3 Ur Squamous Epith Cells RARE Squamous Urine Bacteria Rare Ur Microscopic Review INDICATED Urine Culture Comments NOT INDICATED PD MEDICAL DECISION MAKING - ED course Complexity details: reviewed old records, reviewed results, re-evaluated patient, d/w patient ED course: Patient has elevated glucose slightly elevated renal function. She feels better after a dose of IV Zofran and Dilaudid. I do not suspect that she has diverticulitis she is afebrile. I did review her CT scan from the middle of September when she was seen here and she has quite a significant periumbilical hernia and there was a little knuckle of bowel stuck in it on that CT scan. I am highly suspicious that these recurrent symptoms are related to a little knuckle of bowel is getting caught up in that hernia defect and then releasing itself. I have recommended follow-up with a surgeon for evaluation on whether or not the hernia should be re-pared. In addition we talked about things that can cause flare of diverticulosis and diverticulitis watching her diet closely for these type of things. She would certainly benefit from evaluation with a steam meter reader to help her manage that and she has tried to stop eating a lot of processed foods. Interestingly yesterday she had [place] chicken salad out at a restaurant and had corn and beans in it both of which could potentially cause some diverticulosis flare. She was given 10 units of regular insulin subcu. She was able to keep down oral fluids and ready for discharge. Will provide a prescription for p.o. Phenergan as Zofran has never helped her in the past. Departure - Departure Disposition: 01 Home, Self Care Clinical Impression: Hernia of abdominal wall Abdominal pain Qualifiers: Abdominal location: left upper quadrant Qualified Code(s): R10.12 - Left upper quadrant pain Condition: Good Instructions: ED Diverticulitis Follow-Up: OWEN CHERRY MD [Primary Care Provider] - Sebastián Alaniz MD [Provider Admit Priv/Credential] - Prescriptions: Promethazine [Phenergan] 25 mg PO Q6H PRN #10 tab PRN Reason: Nausea / Vomiting Comments: Take the Phenergan if needed for nausea or vomiting. Assess your diet and even consider keeping a food journal to see if there is something that you are eating that setting off the bloating. Working with a steam meter reader can certainly be helpful for your diabetes but also to help you cut out the processed foods. In addition you do have an abdominal periumbilical hernia that may be the source of this recurrent episodes of pain if a little bit of bowel get slips in there and becomes entrapped. I would recommend evaluation by a surgeon on whether repair of the hernia would be helpful.
[2019-11-01] MEDS ORDERED: INSULIN REGULAR HUMAN 100 UNIT/1 ML 10 ML MDV SUBQ STA (13:59)
[2019-11-01 14:13] VITALS: BP 141/71
== END 2019-11-01 14:20 | disposition home or self-care (01) ==
LOC: ED 09:52
DX: K43.9 Ventral hernia without obstruction or gangrene (principal); R10.12 Left upper quadrant pain; R11.2 Nausea with vomiting, unspecified; R19.7 Diarrhea, unspecified; E10.65 Type 1 diabetes mellitus with hyperglycemia; I10 Essential (primary) hypertension; R01.1 Cardiac murmur, unspecified; Z95.2 Presence of prosthetic heart valve; Z79.82 Long term (current) use of aspirin; Z87.19 Personal history of other diseases of the digestive system; E66.01 Morbid (severe) obesity due to excess calories; Z68.41 Body mass index [BMI] 40.0-44.9, adult
CPT/HCPCS: 36415; 80053; 81001; 83690; 85025; 96374; 99283; 99284; J1170; J1815; 81003; 87086

== ENCOUNTER 2019-11-15 21:40 | Emergency (ER) | payer BC ==
[2019-11-15 22:18] LABS: BILIRUBIN,URINE NEGATIVE (NEGATIVE); GLUCOSE, URINE (UA) 500 mg/dL (NEGATIVE); KETONES,URINE (UA) NEGATIVE (NEGATIVE); LEUKOCYTE ESTERASE, URINE NEGATIVE (NEGATIVE); NITRITE,URINE NEGATIVE (NEGATIVE); OCCULT BLOOD,URINE SMALL (NEGATIVE); PROTEIN,URINE 30 mg/dL (NEGATIVE); UROBILINOGEN,URINE 0.2 (NORMAL) E.U./dL (NORMAL)
[2019-11-15 22:19] LABS: CLARITY,URINE CLEAR (CLEAR)
[2019-11-15 22:27] LABS: BACTERIA,URINE None Seen /HPF (None Seen); RBC,URINE 0-5 /HPF (0-5); SQUAMOUS EPITHELIAL CELL,UR FEW Squamous (<= Few)
[2019-11-15] MEDS ORDERED: ONDANSETRON 4 MG/2 ML VIAL IVP STA (23:20)
[2019-11-15] MEDS ORDERED: SODIUM CHLORIDE 0.9% 1,000 ML IV ONE (23:20)
[2019-11-15 23:23] LABS: BASOPHILS % (AUTO) 0.3 %; EOSINOPHILS % (AUTO) 0.3 %; LYMPHOCYTES # (AUTO) 0.9 10^3/uL (1.5-3.5); LYMPHOCYTES % (AUTO) 9.7 %; MEAN CORPUSCULAR HEMOGLOBIN 27.8 pg (27.0-31.0); MEAN CORPUSCULAR HGB CONC 30.6 g/dL (32.0-36.0); MEAN CORPUSCULAR VOLUME 90.7 fL (81.0-99.0); MEAN PLATELET VOLUME 10.2 fL (7.9-10.8); MONOCYTES # (AUTO) 0.3 10^3/uL (0.0-1.0); MONOCYTES % (AUTO) 3.8 %; NEUTROPHILS # (AUTO) 7.6 10^3/uL (1.5-6.6); NEUTROPHILS % (AUTO) 85.6 %; PLT - PLATELET COUNT 210 10^3/uL (130-450); RED BLOOD COUNT 3.96 10^6/uL (4.20-5.40); RED CELL DISTRIBUTION WIDTH 13.6 % (12.0-15.0); WHITE BLOOD COUNT 8.9 x10^3/uL (4.8-10.8)
[2019-11-15] MEDS ORDERED: HYDROmorphone 1 MG/ML CARPUJECT IVP STA (23:24)
[2019-11-15 23:38] LABS: ALBUMIN 4.3 g/dL (3.2-5.5); ALBUMIN/GLOBULIN RATIO 1.5 (1.0-2.2); BILIRUBIN,TOTAL 0.5 mg/dL (0.2-1.0); CALCIUM 9.1 mg/dL (8.5-10.3); CREATININE 1.9 mg/dL (0.4-1.0); TOTAL PROTEIN 7.2 g/dL (6.7-8.2)
[2019-11-15 23:42] LABS: VBG BASE EXCESS -2.6 mmol/L (-2 - +2); VBG PCO2 41.4 mmHg (41-51); VBG PH 7.358 (7.31-7.41); VBG PO2 74.3 mmHg (25-47)
[2019-11-16] MEDS ORDERED: diphenhydrAMINE INJ 50 MG/ML VIAL IVP STA (00:20)
[2019-11-16] MEDS ORDERED: HYDROmorphone 1 MG/ML CARPUJECT IM STA (01:06)
[2019-11-16] MEDS ORDERED: PROMETHAZINE INJ 25 MG in SODIUM CHLORIDE 0.9% 50 ML IV STA ×2 (01:09→06:03)
[2019-11-16] MEDS ORDERED: HYDROmorphone 1 MG/ML CARPUJECT IVP STA (01:14)
[2019-11-16] MEDS ORDERED: MORPHINE 2 MG/ML CARPUJECT IVP STA (03:02)
[2019-11-16] MEDS ORDERED: ONDANSETRON 4 MG/2 ML VIAL IVP STA (03:03)
[2019-11-16] MEDS ORDERED: IOVERSOL 320 100 ML VIAL IVP ONE ×2 (04:47→05:28)
--- NOTE | 2019-11-16 05:53 | CT Report ---
Reason: abdominal pain and vomiting Procedure Date: 11/16/2019 Accession Number: [id number] / [id number] Procedure: CT - Abdomen/Pelvis W CPT Code: Final Report FULL RESULT: EXAM: CT ABDOMEN AND PELVIS EXAM DATE: 11/16/2019 05:09 AM CLINICAL HISTORY: Abdominal pain and vomiting. COMPARISONS: ABDOMEN/PELVIS W/O 10/04/2019 1:07 AM. TECHNIQUE: Routine helical CT imaging was performed through the abdomen and pelvis. IV contrast: 60 mL Optiray 320. Enteric contrast: No. Reconstructions: Coronal and sagittal. In accordance with CT protocol optimization, one or more of the following dose reduction techniques were utilized for this exam: automated exposure control, adjustment of mA and/or KV based on patient size, or use of iterative reconstructive technique. FINDINGS: Lung Bases: Interlobular septal thickening which can be seen with fluid overload. Dependent atelectasis in the bilateral lower lobes. Extensive mitral valve calcifications. TAVR in place. Liver: Mild hepatic steatosis. No suspicious hepatic lesions. Gallbladder/Bile Ducts: Surgically absent gallbladder. No intrahepatic or extrahepatic biliary ductal dilatation. Spleen: Normal. Pancreas: Normal. Adrenal Glands: Normal. Kidneys: No hydronephrosis or nephrolithiasis. No suspicious renal lesions. Left parapelvic cysts. Peritoneal Cavity/Bowel: Postsurgical changes of prior gastric sleeve surgery. Redemonstration of the chronic periumbilical hernia containing a short segment of the transverse colon without evidence of strangulation or upstream colonic obstruction. The downstream colon appears decompressed. Scattered colonic diverticulosis without CT evidence of acute diverticulitis. Pelvic Organs: Urinary bladder unremarkable. Stable calcified leiomyoma. Vasculature: Atherosclerotic plaquing of the abdominal aorta without aneurysmal dilatation. Appendix: Not visualized with certainty. Bones: No significant focal osseous lesions. Other: Grossly stable chronic periumbilical hernia with a sac measuring 7.4 x 8.5 x 12.5 cm in the AP, transverse, and craniocaudal dimensions respectively. The hernial defect measures 2.2 x 2.4 cm in the transverse and craniocaudal dimensions respectively. IMPRESSION: 1. Stable chronic large periumbilical hernia containing mostly mesenteric fat but also a short segment of the transverse colon without evidence of strangulation or upstream colonic obstruction. 2. Decompressed colon downstream from the hernia. 3. Scattered colonic diverticulosis without CT evidence of acute diverticulitis. 4. Uterine leiomyoma. 5. Surgically absent gallbladder. 6. Left parapelvic cysts. 7. Interlobular septal thickening in the visualized lower lobes suggestive of fluid overload. RADIA
[2019-11-16] MEDS ORDERED: FUROSEMIDE 20 MG/2 ML VIAL IVP STA (06:04)
--- NOTE | 2019-11-16 06:06 | ED Physician Documentation ---
History of Present Illness - Stated complaint Stated Complaint: VOMITING - Chief complaint Chief Complaint: Abd Pain - History obtained from History obtained from: Patient, Family () - History of Present Illness Pain level max: 6 Pain level now: 6 - Additonal information Additional information: 64 year old female with hx of HTN, hyperlipidemia, DM, frequent visits to the emergency department for nausea, vomiting, who presents to the emergency department with vomiting since 18:30 in the evening. Patient reported that she vomited multiple times. She denies any diarrhea, fever or chills. She has a hx of umbilical hernia. She denies any sick contacts, chest pain or shortness of breath. She reported of similar pain like this in the past (for years). She was last seen in the ED on 11/01/2019. Review of Systems Constitutional: denies: Fever, Chills Ears: denies: Loss of hearing, Ear pain Nose: denies: Rhinorrhea / runny nose, Foreign Body Cardiac: denies: Chest pain / pressure, Palpitations Respiratory: denies: Cough GI: reports: Abdominal Pain, Nausea, Vomiting. denies: Diarrhea : denies: Dysuria Skin: denies: Rash Musculoskeletal: denies: Neck pain, Back pain Neurologic: denies: Generalized weakness, Focal weakness, Numbness, Syncope, Seizure PD PAST MEDICAL HISTORY - Past Medical History Past Medical History: Yes Cardiovascular: Hypertension, High cholesterol, Murmur Respiratory: Sleep apnea, CPAP use Endocrine/Autoimmune: Type 1 diabetes GI: GERD, Chronic constipation, Diverticulitis : Kidney stones, Other Musculoskeletal: Chronic back pain Derm: Eczema Other Past Medical History: Kidney disease - Past Surgical History Past Surgical History: Yes General: Cholecystectomy - Present Medications Home Medications: Ambulatory Orders Medication Instructions Recorded Confirmed Aspirin Chewable [[facility] [place] 81 mg PO ONCE 04/08/13 11/15/19 Aspirin] Omeprazole [PriLOSEC] 20 mg PO DAILY 04/08/13 11/15/19 Atorvastatin Calcium 40 mg PO QPM 08/22/15 11/15/19 lisinopriL [Lisinopril] 40 mg PO DAILY 08/22/15 11/15/19 Diphenoxylate/Atropine [Lomotil] 1 each PO QID PRN #12 tablet 08/28/19 11/15/19 Furosemide [Lasix] 20 mg PO DAILY 08/28/19 11/15/19 Insulin Glargine [Lantus Solostar] 25 unit SUBQ BID 08/28/19 11/15/19 Ondansetron Odt [Zofran] 4 mg TL Q6H PRN #10 tablet 08/28/19 11/15/19 amLODIPine [Norvasc] 10 mg PO DAILY 08/28/19 11/15/19 Dicyclomine [Bentyl] 10 mg PO QID PRN #15 capsule 10/04/19 11/15/19 Promethazine [Phenergan] 25 mg PO Q6H PRN #10 tab 11/01/19 11/15/19 Promethazine [Phenergan] 25 mg PO Q6H PRN #20 tab 11/16/19 - Allergies Allergies/Adverse Reactions: Allergies Allergy/AdvReac Type Severity Reaction Status Date / Time rosuvastatin calcium * Allergy Hives Verified 11/15/19 23:36 [From [facility]] - Social History Does the pt smoke?: No Smoking Status: Never smoker Does the pt drink ETOH?: No Does the pt have substance abuse?: No - Immunizations Immunizations are current?: Yes - POLST Patient has POLST: No PD ED PE NORMAL - Vitals Vital signs reviewed: Yes - General General: Alert and oriented X 3, No acute distress (uncomfortable; actively vomiting), Other - HEENT HEENT: Atraumatic - Neck Neck: Supple, no meningeal sign - Cardiac Cardiac: RRR - Respiratory Respiratory: No respiratory distress - Abdomen Abdomen: Other (umbilical hernia noted; reducible. no discoloration. no rebound or guarding. bowel sounds were present. 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 Eye Opening: Spontaneous Motor: Obeys Commands Verbal: Oriented GCS Score: 15 Results - Vitals Vitals: Vital Signs - 24 hr 11/15/19 11/15/19 11/15/19 21:50 23:39 23:41 Temperature 36.5 C Heart Rate 98 97 97 Respiratory 18 18 12 Rate Blood Pressure 171/80 H 180/77 H 180/77 H O2 Saturation 96 94 88 L 11/16/19 11/16/19 11/16/19 00:01 00:21 01:01 Temperature 36.8 C Heart Rate 78 108 H 107 H Respiratory 16 21 26 H Rate Blood Pressure 133/89 H 182/73 H 172/79 H O2 Saturation 100 99 98 11/16/19 11/16/19 11/16/19 01:50 01:59 02:19 Temperature Heart Rate 107 H 108 H 104 H Respiratory 18 17 15 Rate Blood Pressure 181/79 H 182/78 H 182/78 H O2 Saturation 94 94 95 11/16/19 11/16/19 11/16/19 03:02 03:33 04:06 Temperature Heart Rate 109 H 104 H 104 H Respiratory 24 18 25 H Rate Blood Pressure 153/72 H 158/60 H 154/65 H O2 Saturation 93 98 99 11/16/19 11/16/19 11/16/19 05:18 06:02 07:00 Temperature 36.7 C 36.8 C Heart Rate 103 H 109 H 99 Respiratory 21 20 19 Rate Blood Pressure 170/73 H 156/71 H 153/74 H O2 Saturation 95 97 95 Oxygen O2 Source Room air Oxygen Flow Rate 3 - EKG (time done) 2332 Rate: Rate (enter#) (97) [place]: LAD Intervals: Prolonged QT, QRS normal, LBBB - Labs Labs: Laboratory Tests 11/15/19 11/15/19 11/15/19 22:09 23:16 23:16 WBC 8.9 RBC 3.96 L Hgb 11.0 L Hct 35.9 L MCV 90.7 MCH 27.8 MCHC 30.6 L RDW 13.6 Plt Count 210 MPV 10.2 Neut # (Auto) 7.6 H Lymph # (Auto) 0.9 L [place] # (Auto) 0.3 Eos # (Auto) 0.0 Baso # (Auto) 0.0 Absolute Nucleated RBC 0.00 Nucleated RBC % 0.0 VBG pH VBG pCO2 VBG pO2 VBG HCO3 VBG Total CO2 VBG O2 Saturation VBG Base Excess Sodium 140 Potassium 4.4 Chloride 106 Carbon Dioxide 21 Anion Gap 13.0 BUN 43 H Creatinine 1.9 H Estimated GFR (MDRD) 27 L Glucose 327 H Calcium 9.1 Total Bilirubin 0.5 AST 31 ALT 36 Alkaline Phosphatase 76 Total Protein 7.2 Albumin 4.3 Globulin 2.9 Albumin/Globulin Ratio 1.5 Lipase 74 H Urine Color YELLOW Urine Clarity CLEAR Urine pH 7.0 Ur Specific [place] 1.020 Urine Protein 30 H Urine Glucose (UA) 500 H Urine Ketones NEGATIVE Urine Occult Blood SMALL H Urine Nitrite NEGATIVE Urine Bilirubin NEGATIVE Urine Urobilinogen 0.2 (NORMAL) Ur Leukocyte Esterase NEGATIVE Urine RBC 0-5 Urine WBC 0-3 Ur Squamous Epith Cells FEW Squamous Urine Bacteria None Seen Ur Microscopic Review INDICATED Urine Culture Comments NOT INDICATED Serum Ketones 11/15/19 11/15/19 23:28 23:28 WBC RBC Hgb Hct MCV MCH MCHC RDW Plt Count MPV Neut # (Auto) Lymph # (Auto) [place] # (Auto) Eos # (Auto) Baso # (Auto) Absolute Nucleated RBC Nucleated RBC % VBG pH 7.358 VBG pCO2 41.4 VBG pO2 74.3 H VBG HCO3 22.8 L VBG Total CO2 24.0 VBG O2 Saturation 93.8 H VBG Base Excess -2.6 L Sodium Potassium Chloride Carbon Dioxide Anion Gap BUN Creatinine Estimated GFR (MDRD) Glucose Calcium Total Bilirubin AST ALT Alkaline Phosphatase Total Protein Albumin Globulin Albumin/Globulin Ratio Lipase Urine Color Urine Clarity Urine pH Ur Specific [place] Urine Protein Urine Glucose (UA) Urine Ketones Urine Occult Blood Urine Nitrite Urine Bilirubin Urine Urobilinogen Ur Leukocyte Esterase Urine RBC Urine WBC Ur Squamous Epith Cells Urine Bacteria Ur Microscopic Review Urine Culture Comments Serum Ketones NEGATIVE PD MEDICAL DECISION MAKING - ED course Complexity details: reviewed old records, re-evaluated patient, d/w patient, d/w family ED course: 64 YEAR OLD FEMALE PRESENTS TO THE EMERGENCY DEPARTMENT BECAUSE OF NAUSEA, VOMITING AND LOWER ABDOMINAL PAIN SINCE 1830 IN THE EVENING. SHE WAS ACTIVELY VOMTING WHEN SHE PRESENTED. SHE WAS TREATED WITH ANTI-EMETICS (ZOFRAN, PHENERGAN AND BENADRYL). VOMITING RESOLVED AND PATIENT REPORTED OF INTERMITTENT NAUSEA. SHE REPORTED OF ABDOMINAL PAIN WELL. WITH PERSISTENT NAUSEA AND ABDOMINAL DISCOMFORT IN THE SETTING OF UMBILICAL HERNIA, CT ABD/PEL WITH IV CONTRAST WAS OBTAINED. CT SHOWED THE FOLLOWING RESULTS: 1. Stable chronic large periumbilical hernia containing mostly mesenteric fat but also a short segment of the transverse colon without evidence of strangulation or upstream colonic obstruction. 2. Decompressed colon downstream from the hernia. 3. Scattered colonic diverticulosis without CT evidence of acute diverticulitis. 4. Uterine leiomyoma. 5. Surgically absent gallbladder. 6. Left parapelvic cysts. 7. Interlobular septal thickening in the visualized lower lobes suggestive of fluid overload. ON RECHECK, PATIENT WAS FEELING BETTER AFTER ADDITIONAL PHENERGAN. BASED ON REVIEW OF HISTORY, THIS IS A CHRONIC CONDITION (NAUSEA, VOMITING). ETIOLOGY WAS UNCLEAR. ?CYCLIC VOMITING SYDNROME, GASTROPARESIS. UA WAS NOT CONSISTENT WITH UTI AND PATIENT WAS NOT IN DIABETIC KETOACIDOSIS. THE PATIENT WAS STABLE TO BE DISCHARGED WITH OUTPATIENT FOLLOW UP WITH PCP IN 3-5 DAYS. SHE WAS PRESCRIBED PHENERGAN FOR NAUSEA AND VOMITING NEEDED. STRICT RETURN INSTRUCTIONS WERE GIVEN. PATIENT WAS DISCHARGED IN STABLE CONDITION. Departure - Departure Disposition: 01 Home, Self Care Clinical Impression: Vomiting Condition: Stable Instructions: ED Abdominal Pain Unkn Cause, ED Nausea Vomiting Follow-Up: Valerie Haque MD [Primary Care Provider] - Within 3 Days Prescriptions: Promethazine [Phenergan] 25 mg PO Q6H PRN #20 tab PRN Reason: Nausea / Vomiting Comments: PLEASE FOLLOW UP WITH YOUR DOCTOR SOON POSSIBLE IN 3 DAYS. PLEASE RETURN TO THE EMERGENCY DEPARTMENT IF YOU EXPERIENCE A FEVER OF 100.4 OR GREATER, CHEST PAIN, SHORTNESS OF BREATH OR ANY NEW OR CONCERNING SYPMTOMS. Discharge Date/Time: 11/16/19 07:05
[2019-11-16 07:11] VITALS: BP 153/74
== END 2019-11-16 07:05 | disposition home or self-care (01) ==
LOC: ED 21:40
DX: R11.2 Nausea with vomiting, unspecified (principal); K42.9 Umbilical hernia without obstruction or gangrene; Z90.49 Acquired absence of other specified parts of digestive tract; D25.9 Leiomyoma of uterus, unspecified; I44.7 Left bundle-branch block, unspecified; I45.81 Long QT syndrome; I10 Essential (primary) hypertension; E78.5 Hyperlipidemia, unspecified; E10.9 Type 1 diabetes mellitus without complications; Z79.82 Long term (current) use of aspirin
CPT/HCPCS: 36415; 74177; 80053; 81001; 82009; 82803; 83690; 85025; 93005; 96361; 96365; 96375; 96376; 99284; 99285; J1170; J1200; J7040; Q9967; 81003; 87086

== ENCOUNTER 2019-11-18 10:18 | Emergency (ER) | payer BC ==
[2019-11-18 11:07] LABS: BASOPHILS % (AUTO) 0.4 %; EOSINOPHILS # (AUTO) 0.1 10^3/uL (0.0-0.7); EOSINOPHILS % (AUTO) 0.9 %; HGB - HEMOGLOBIN 11.6 g/dL (12.0-16.0); LYMPHOCYTES % (AUTO) 13.1 %; MEAN CORPUSCULAR HGB CONC 32.4 g/dL (32.0-36.0); MEAN CORPUSCULAR VOLUME 89.5 fL (81.0-99.0); MONOCYTES # (AUTO) 0.5 10^3/uL (0.0-1.0); MONOCYTES % (AUTO) 6.8 %; NEUTROPHILS # (AUTO) 5.8 10^3/uL (1.5-6.6); NEUTROPHILS % (AUTO) 78.5 %; PLT - PLATELET COUNT 224 10^3/uL (130-450); RED CELL DISTRIBUTION WIDTH 13.3 % (12.0-15.0); WHITE BLOOD COUNT 7.4 x10^3/uL (4.8-10.8)
[2019-11-18 11:21] LABS: ALBUMIN 4.1 g/dL (3.2-5.5); ALBUMIN/GLOBULIN RATIO 1.4 (1.0-2.2); BILIRUBIN,TOTAL 0.9 mg/dL (0.2-1.0); CALCIUM 9.4 mg/dL (8.5-10.3); CREATININE 1.6 mg/dL (0.4-1.0)
[2019-11-18] MEDS ORDERED: SODIUM CHLORIDE 0.9% 1,000 ML IV ONE (12:40)
[2019-11-18] MEDS ORDERED: ONDANSETRON 4 MG/2 ML VIAL IVP STA (12:40)
[2019-11-18] MEDS ORDERED: HYDROmorphone 1 MG/ML SYRINGE IVP STA ×2 (12:40→13:50)
--- NOTE | 2019-11-18 12:42 | ED Physician Documentation ---
PD HPI ABD PAIN - Stated complaint Stated Complaint: NAUSIA/VOMITING/STOMACH PX - Chief complaint Chief Complaint: Abd Pain - History obtained from History obtained from: Patient, Family () - History of Present Illness Timing - onset: Chronic (64-year-old woman with chronic unexplained abdominal pain and vomiting. Reportedly has had a negative gastric emptying study in the remote past, no clear diagnosis. She used to be here frequently for this, but when she retired from [employer] her exacerbations became less frequent but over the last couple of months has become more frequent again, she complains of burning upper abdominal pain and vomiting without diarrhea. She was here the other day and had CAT scan without acute changes, only chronic changes.) Review of Systems Ten Systems: 10 systems reviewed and negative Constitutional: denies: Fever, Chills Cardiac: denies: Chest pain / pressure, Palpitations Respiratory: denies: Dyspnea, Cough GI: denies: Diarrhea, Hematemesis, Bloody / black stool PD PAST MEDICAL HISTORY - Past Medical History Cardiovascular: Hypertension, High cholesterol, Murmur Respiratory: Sleep apnea, CPAP use Endocrine/Autoimmune: Type 1 diabetes GI: GERD, Chronic constipation, Diverticulitis : Kidney stones, Other Musculoskeletal: Chronic back pain Derm: Eczema - Past Surgical History Past Surgical History: Yes General: Cholecystectomy - Present Medications Home Medications: Ambulatory Orders Medication Instructions Recorded Confirmed Aspirin Chewable [[place] 81 mg PO ONCE 04/08/13 11/15/19 Aspirin] Omeprazole [PriLOSEC] 20 mg PO DAILY 04/08/13 11/15/19 Atorvastatin Calcium 40 mg PO QPM 08/22/15 11/15/19 lisinopriL [Lisinopril] 40 mg PO DAILY 08/22/15 11/15/19 Diphenoxylate/Atropine [Lomotil] 1 each PO QID PRN #12 tablet 08/28/19 11/15/19 Furosemide [Lasix] 20 mg PO DAILY 08/28/19 11/15/19 Insulin Glargine [Lantus Solostar] 25 unit SUBQ BID 08/28/19 11/15/19 Ondansetron Odt [Zofran] 4 mg TL Q6H PRN #10 tablet 08/28/19 11/15/19 amLODIPine [Norvasc] 10 mg PO DAILY 08/28/19 11/15/19 Dicyclomine [Bentyl] 10 mg PO QID PRN #15 capsule 10/04/19 11/15/19 Promethazine [Phenergan] 25 mg PO Q6H PRN #10 tab 11/01/19 11/15/19 Promethazine [Phenergan] 25 mg PO Q6H PRN #20 tab 11/16/19 Ondansetron Odt [Zofran] 4 mg TL Q6H PRN #14 tablet 11/18/19 Promethazine Supp [Phenergan Supp] 25 mg [place] Q6HR PRN #20 supp 11/18/19 - Allergies Allergies/Adverse Reactions: Allergies Allergy/AdvReac Type Severity Reaction Status Date / Time rosuvastatin calcium * Allergy Hives Verified 11/18/19 10:29 [From [facility]] - Social History Does the pt smoke?: No Smoking Status: Never smoker Does the pt drink ETOH?: No Does the pt have substance abuse?: No - Immunizations Immunizations are current?: Yes - POLST Patient has POLST: No PD ED PE NORMAL - Vitals Vital signs reviewed: Yes - General General: Alert and oriented X 3, Other (She appears uncomfortable and retching) - Cardiac Cardiac: RRR, No murmur - Respiratory Respiratory: No respiratory distress, Clear bilaterally - Abdomen Abdomen: Normal bowel sounds, Soft, Non tender, Other (Large easily reducible umbilical hernia which is nontender) - Back Back: No CVA TTP, No spinal TTP - Derm Derm: Normal color, Warm and dry - Extremities Extremities: No edema, No calf tenderness / cord - Neuro Neuro: Alert and oriented X 3, Normal speech - Psych Psych: Normal mood, Normal affect Results - Vitals Vitals: Vital Signs - 24 hr 11/18/19 11/18/19 11/18/19 10:30 11:51 13:30 Temperature 36.7 C Heart Rate 91 90 91 Respiratory 18 22 18 Rate Blood Pressure 158/90 H 180/69 H 178/77 H O2 Saturation 96 97 96 11/18/19 11/18/19 14:25 15:50 Temperature Heart Rate 95 104 H Respiratory 18 18 Rate Blood Pressure 177/72 H 170/63 H O2 Saturation 92 97 Oxygen O2 Source Room air - Labs Labs: Laboratory Tests 02/27/20 02/27/20 02/27/20 10:55 10:55 14:22 WBC 7.4 RBC 4.00 L Hgb 11.6 L Hct 35.8 L MCV 89.5 MCH 29.0 MCHC 32.4 RDW 13.3 Plt Count 224 MPV 10.0 Neut # (Auto) 5.8 Lymph # (Auto) 1.0 L [place] # (Auto) 0.5 Eos # (Auto) 0.1 Baso # (Auto) 0.0 Absolute Nucleated RBC 0.00 Nucleated RBC % 0.0 Sodium 142 Potassium 4.0 Chloride 106 Carbon Dioxide 23 Anion Gap 13.0 BUN 37 H Creatinine 1.6 H Estimated GFR (MDRD) 32 L Glucose 184 H Calcium 9.4 Total Bilirubin 0.9 AST 23 ALT 26 Alkaline Phosphatase 76 Total Protein 7.0 Albumin 4.1 Globulin 2.9 Albumin/Globulin Ratio 1.4 Lipase 38 Urine Color YELLOW Urine Clarity CLEAR Urine pH 8.0 H Ur Specific [place] 1.020 Urine Protein 100 H Urine Glucose (UA) 100 H Urine Ketones 15 H Urine Occult Blood TRACE-INTA Urine Nitrite NEGATIVE Urine Bilirubin NEGATIVE Urine Urobilinogen 0.2 (NORMAL) Ur Leukocyte Esterase NEGATIVE Urine RBC 0-5 Urine WBC 0-3 Ur Squamous Epith Cells RARE Squamous Urine Bacteria None Seen Ur Microscopic Review INDICATED Urine Culture Comments NOT INDICATED Procedures - General procedure General procedure: She was difficult for IV access, the nurse had tried and failed. I personally placed a long 22-gauge IV in the right antecubital fossa after ChloraPrep using real-time ultrasound guidance that flushed and elisa well. PD MEDICAL DECISION MAKING - ED course ED course: This 64-year-old woman with recurrent episodes of nausea vomiting and abdominal pain, previously unexplained, now worse again. She was treated stepwise with medications here both for pain and nausea with resolution of her symptoms and passed a p.o. challenge and remained nontender on reevaluation just prior to discharge. On my initial evaluation I had mentioned marijuana, and initially she said she used edibles only occasionally but later on retrospect realized she is been using the much more consistently over the last few months and understands this may be causative. Departure - Departure Disposition: 01 Home, Self Care Clinical Impression: Dehydration Vomiting Qualifiers: Vomiting type: unspecified Vomiting Intractability: intractable Nausea presence: with nausea Qualified Code(s): R11.2 - Nausea with vomiting, unspecified Abdominal pain Qualifiers: Abdominal location: generalized Qualified Code(s): R10.84 - Generalized abdominal pain Condition: Good Record reviewed to determine appropriate education?: Yes Instructions: Abdominal Pain, ED Nausea Vomiting Prescriptions: Promethazine Supp [Phenergan Supp] 25 mg [place] Q6HR PRN #20 supp PRN Reason: Nausea / Vomiting Ondansetron Odt [Zofran] 4 mg TL Q6H PRN #14 tablet PRN Reason: Nausea / Vomiting Comments: As discussed, marijuana and derivatives may be responsible for this, I would recommend ceasing the use of that, also following up with your primary care physician for GI referral. Return for new or worsening symptoms anytime. Discharge Date/Time: 11/18/19 16:07
[2019-11-18] MEDS ORDERED: KETOROLAC 15 MG/ML VIAL IVP STA (13:16)
[2019-11-18] MEDS ORDERED: METOCLOPRAMIDE 10 MG/2 ML VIAL IVP STA ×2 (13:16→15:08)
[2019-11-18] MEDS ORDERED: PANTOPRAZOLE 40 MG VIAL IVP STA (13:50)
[2019-11-18] MEDS ORDERED: LACTATED RINGERS 1,000 ML IV ONE (13:50)
[2019-11-18 14:33] LABS: BILIRUBIN,URINE NEGATIVE (NEGATIVE); GLUCOSE, URINE (UA) 100 mg/dL (NEGATIVE); KETONES,URINE (UA) 15 mg/dL (NEGATIVE); LEUKOCYTE ESTERASE, URINE NEGATIVE (NEGATIVE); NITRITE,URINE NEGATIVE (NEGATIVE); OCCULT BLOOD,URINE TRACE-INTA (NEGATIVE); PROTEIN,URINE 100 mg/dL (NEGATIVE); UROBILINOGEN,URINE 0.2 (NORMAL) E.U./dL (NORMAL)
[2019-11-18 14:46] LABS: CLARITY,URINE CLEAR (CLEAR)
[2019-11-18 14:47] LABS: BACTERIA,URINE None Seen /HPF (None Seen); RBC,URINE 0-5 /HPF (0-5); SQUAMOUS EPITHELIAL CELL,UR RARE Squamous (<= Few)
[2019-11-18 15:51] VITALS: BP 170/63
== END 2019-11-18 16:07 | disposition home or self-care (01) ==
LOC: ED 10:18
DX: E86.0 Dehydration (principal); R11.2 Nausea with vomiting, unspecified; R10.84 Generalized abdominal pain; I10 Essential (primary) hypertension; E10.9 Type 1 diabetes mellitus without complications; Z79.4 Long term (current) use of insulin
CPT/HCPCS: 36415; 80053; 81001; 83690; 85025; 96361; 96365; 96375; 96376; 99284; 99285; J1170; J2765; J7120; 81003; 87086

== ENCOUNTER 2020-01-16 08:50 | Emergency (ER) | payer BC ==
--- NOTE | 2020-01-16 08:59 | ED Physician Documentation ---
History of Present Illness - Stated complaint Stated Complaint: VOMIT/ABD PX - History obtained from History obtained from: Patient - History of Present Illness Timing: Last night - Additonal information Additional information: 64-year-old diabetic female with a history of intermittent vomiting episodes has developed symptoms beginning last night with vomiting and abdominal pain. She has had a number of episodes previously she has not been in to see the test lead about diagnosis of gastroparesis. She has had some improvement previously with use of Reglan. Review of Systems Constitutional: denies: Fever, Chills Eyes: denies: Decreased vision Ears: denies: Ear pain Nose: denies: Rhinorrhea / runny nose, Congestion Throat: denies: Sore throat Cardiac: denies: Chest pain / pressure, Palpitations Respiratory: reports: Cough (with vomiting). denies: Dyspnea GI: reports: Abdominal Pain, Abdominal Swelling, Nausea, Vomiting : denies: Dysuria, Frequency Skin: denies: Rash Musculoskeletal: denies: Neck pain, Back pain, Extremity pain Neurologic: denies: Generalized weakness, Focal weakness, Numbness PD PAST MEDICAL HISTORY - Past Medical History Cardiovascular: Hypertension, High cholesterol, Murmur Respiratory: Sleep apnea, CPAP use Endocrine/Autoimmune: Type 1 diabetes GI: GERD, Chronic constipation, Diverticulitis : Kidney stones, Other Musculoskeletal: Chronic back pain Derm: Eczema - Past Surgical History Past Surgical History: Yes General: Cholecystectomy - Present Medications Home Medications: Ambulatory Orders Medication Instructions Recorded Confirmed Aspirin Chewable [[facility] [place] 81 mg PO ONCE 04/08/13 11/15/19 Aspirin] Omeprazole [PriLOSEC] 20 mg PO DAILY 04/08/13 11/15/19 Atorvastatin Calcium 40 mg PO QPM 08/22/15 11/15/19 lisinopriL [Lisinopril] 40 mg PO DAILY 08/22/15 11/15/19 Diphenoxylate/Atropine [Lomotil] 1 each PO QID PRN #12 tablet 08/28/19 11/15/19 Furosemide [Lasix] 20 mg PO DAILY 08/28/19 11/15/19 Insulin Glargine [Lantus Solostar] 25 unit SUBQ BID 08/28/19 11/15/19 Ondansetron Odt [Zofran] 4 mg TL Q6H PRN #10 tablet 08/28/19 11/15/19 amLODIPine [Norvasc] 10 mg PO DAILY 08/28/19 11/15/19 Dicyclomine [Bentyl] 10 mg PO QID PRN #15 capsule 10/04/19 11/15/19 Promethazine [Phenergan] 25 mg PO Q6H PRN #10 tab 11/01/19 11/15/19 Promethazine [Phenergan] 25 mg PO Q6H PRN #20 tab 11/16/19 Ondansetron Odt [Zofran] 4 mg TL Q6H PRN #14 tablet 11/18/19 Promethazine Supp [Phenergan Supp] 25 mg [place] Q6HR PRN #20 supp 11/18/19 Metoclopramide [Reglan] 10 mg PO Q6H PRN #30 tablet 01/16/20 - Allergies Allergies/Adverse Reactions: Allergies Allergy/AdvReac Type Severity Reaction Status Date / Time rosuvastatin calcium * Allergy Hives Verified 01/16/20 08:55 [From [facility]] - Social History Does the pt smoke?: No Smoking Status: Never smoker Does the pt drink ETOH?: No Does the pt have substance abuse?: No - Immunizations Immunizations are current?: Yes - POLST Patient has POLST: No PD ED PE NORMAL - Vitals Vital signs reviewed: Yes (Tachycardic and hypertensive) - General General: Alert and oriented X 3, Well developed/nourished, Other (Appears to be in pain with historic interpreter tone and flattened affect) - HEENT HEENT: Atraumatic, PERRL, EOMI, Other (Dry mucous membranes) - Neck Neck: Supple, no meningeal sign, No bony TTP - Cardiac Cardiac: No murmur, Other (Tachycardia to 110) - Respiratory Respiratory: No respiratory distress, Clear bilaterally - Abdomen Abdomen: Normal bowel sounds, Soft, Other (There is minimal general tenderness and no guarding or rebound tenderness) - Back Back: No CVA TTP, No spinal TTP - Derm Derm: Normal color, Warm and dry, No rash - Extremities Extremities: No deformity, No edema, No calf tenderness / cord - Neuro Neuro: Alert and oriented X 3, 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, No motor deficit, No sensory deficit, Normal speech Eye Opening: Spontaneous Motor: Obeys Commands Verbal: Oriented GCS Score: 15 - Psych Psych: Normal mood, Normal affect Results - Vitals Vitals: Vital Signs - 24 hr 01/16/20 01/16/20 01/16/20 08:55 10:51 11:55 Temperature 36.6 C 37.1 C Heart Rate 105 H 101 H 95 Respiratory 22 20 Rate Blood Pressure 184/79 H 145/69 H O2 Saturation 97 96 96 01/16/20 13:00 Temperature Heart Rate 88 Respiratory 16 Rate Blood Pressure 136/74 H O2 Saturation 96 Oxygen O2 Source Room air - Labs Labs: Laboratory Tests 01/16/20 01/16/20 01/16/20 09:04 09:20 09:20 WBC 10.2 RBC 4.03 L Hgb 11.7 L Hct 36.3 L MCV 90.1 MCH 29.0 MCHC 32.2 RDW 13.7 Plt Count 218 MPV 9.9 Neut # (Auto) 9.3 H Lymph # (Auto) 0.6 L [place] # (Auto) 0.2 Eos # (Auto) 0.0 Baso # (Auto) 0.0 Absolute Nucleated RBC 0.00 Nucleated RBC % 0.0 Sodium 140 Potassium 4.2 Chloride 107 Carbon Dioxide 21 Anion Gap 12.0 BUN 40 H Creatinine 1.5 H Estimated GFR (MDRD) 35 L Glucose 361 H Calcium 9.2 Total Bilirubin 0.6 AST 27 ALT 29 Alkaline Phosphatase 96 Total Protein 7.2 Albumin 4.0 Globulin 3.2 Albumin/Globulin Ratio 1.3 Lipase 38 Urine Color YELLOW Urine Clarity CLEAR Urine pH 6.5 Ur Specific [place] 1.020 Urine Protein 100 H Urine Glucose (UA) >=1000 H Urine Ketones NEGATIVE Urine Occult Blood SMALL H Urine Nitrite NEGATIVE Urine Bilirubin NEGATIVE Urine Urobilinogen 0.2 (NORMAL) Ur Leukocyte Esterase NEGATIVE Urine RBC 0-5 Urine WBC 0-3 Ur Squamous Epith Cells RARE Squamous Urine Bacteria Rare Ur Microscopic Review INDICATED Urine Culture Comments NOT INDICATED Procedures - IVC sono (time) 0930 Bedside IVC sono: IVC measures (cm) (0.88), IVC collapsed c insp (cm) (complete), Dehydration PD MEDICAL DECISION MAKING - ED course Complexity details: reviewed old records, reviewed results, re-evaluated patient, considered differential, d/w patient ED course: 64-year-old diabetic female with a history of episodic vomiting and abdominal pain is developed an episode beginning last night. She has epigastric pain vomiting nausea and this is uncontrolled. She states her symptoms are typical to what she is had previously. She has not had a diagnosis of diabetic gastroparesis. Cannabis hyperemesis was entertained the patient does not do excessive cannabis.I suspect her underlying issue to be diabetic gastroparesis and she is treated with Reglan and Dilaudid intravenously with improvement. She is administered saline as she is significantly dehydrated as well. There are no signs of intercurrent infection. Departure - Departure Disposition: 01 Home, Self Care Clinical Impression: Dehydration, Diabetic gastroparesis Condition: Stable Instructions: ED Dehydration, ED Diabetic Gastroparesis Follow-Up: Valerie Haque MD [Primary Care Provider] - Prescriptions: Metoclopramide [Reglan] 10 mg PO Q6H PRN #30 tablet PRN Reason: Nausea / Vomiting Discharge Date/Time: 01/16/20 13:24
[2020-01-16 09:17] LABS: BILIRUBIN,URINE NEGATIVE (NEGATIVE); GLUCOSE, URINE (UA) >=1000 mg/dL (NEGATIVE); KETONES,URINE (UA) NEGATIVE (NEGATIVE); LEUKOCYTE ESTERASE, URINE NEGATIVE (NEGATIVE); NITRITE,URINE NEGATIVE (NEGATIVE); OCCULT BLOOD,URINE SMALL (NEGATIVE); PH,URINE 6.5 PH (5.0-7.5); PROTEIN,URINE 100 mg/dL (NEGATIVE); UROBILINOGEN,URINE 0.2 (NORMAL) E.U./dL (NORMAL)
[2020-01-16 09:24] LABS: CLARITY,URINE CLEAR (CLEAR)
[2020-01-16 09:32] LABS: BACTERIA,URINE Rare /HPF (None Seen); RBC,URINE 0-5 /HPF (0-5); SQUAMOUS EPITHELIAL CELL,UR RARE Squamous (<= Few)
[2020-01-16 09:34] LABS: BASOPHILS % (AUTO) 0.2 %; HGB - HEMOGLOBIN 11.7 g/dL (12.0-16.0); LYMPHOCYTES # (AUTO) 0.6 10^3/uL (1.5-3.5); LYMPHOCYTES % (AUTO) 5.9 %; MEAN CORPUSCULAR HGB CONC 32.2 g/dL (32.0-36.0); MEAN CORPUSCULAR VOLUME 90.1 fL (81.0-99.0); MEAN PLATELET VOLUME 9.9 fL (7.9-10.8); MONOCYTES # (AUTO) 0.2 10^3/uL (0.0-1.0); MONOCYTES % (AUTO) 2.2 %; NEUTROPHILS # (AUTO) 9.3 10^3/uL (1.5-6.6); NEUTROPHILS % (AUTO) 91.2 %; PLT - PLATELET COUNT 218 10^3/uL (130-450); RED BLOOD COUNT 4.03 10^6/uL (4.20-5.40); RED CELL DISTRIBUTION WIDTH 13.7 % (12.0-15.0); WHITE BLOOD COUNT 10.2 x10^3/uL (4.8-10.8)
[2020-01-16] MEDS ORDERED: SODIUM CHLORIDE 0.9% 1,000 ML IV ONE ×2 (09:37→12:03)
[2020-01-16] MEDS ORDERED: METOCLOPRAMIDE 10 MG/2 ML VIAL IVP STA (09:37)
[2020-01-16] MEDS ORDERED: HYDROmorphone 1 MG/ML SYRINGE IVP STA (09:43)
[2020-01-16 09:55] LABS: ALBUMIN/GLOBULIN RATIO 1.3 (1.0-2.2); BILIRUBIN,TOTAL 0.6 mg/dL (0.2-1.0); CALCIUM 9.2 mg/dL (8.5-10.3); CREATININE 1.5 mg/dL (0.4-1.0); TOTAL PROTEIN 7.2 g/dL (6.7-8.2)
[2020-01-16] MEDS ORDERED: ONDANSETRON 4 MG/2 ML VIAL IVP STA (12:03)
[2020-01-16] MEDS ORDERED: HYDROmorphone 1 MG/ML CARPUJECT IVP STA (12:03)
[2020-01-16 13:04] VITALS: BP 136/74
== END 2020-01-16 13:24 | disposition home or self-care (01) ==
LOC: ED 08:50
DX: E86.0 Dehydration (principal); E10.43 Type 1 diabetes mellitus with diabetic autonomic (poly)neuropathy; K31.84 Gastroparesis; I10 Essential (primary) hypertension; Z79.4 Long term (current) use of insulin
CPT/HCPCS: 36415; 80053; 81001; 83690; 85025; 96361; 96374; 96375; 96376; 99283; 99284; J1170; J2765; 81003; 87086

== ENCOUNTER 2020-02-09 03:03 | Emergency (ER) | payer BC ==
--- NOTE | 2020-02-09 03:17 | ED Physician Documentation ---
History of Present Illness - Stated complaint Stated Complaint: VOMITING/NAUSEA - Chief complaint Chief Complaint: Abd Pain - History obtained from History obtained from: Patient (Patient is a 64-year-old female who is a insulin-dependent diabetic with a history of diabetic gastroparesis reports that she is having a another attack of her gastroparesis. Patient reports that she try to take Reglan at home however she began vomiting. She denies any fevers, chest pain, shortness of breath, headache, neck pain, dysuria or hematuria or any severe abdominal pain she does report ports mild abdominal discomfort and cramping.Patient denies any severe abdominal pain she is had a previous cholecystectomy.) Review of Systems Constitutional: reports: Reviewed and negative Eyes: reports: Reviewed and negative Ears: reports: Reviewed and negative Nose: reports: Reviewed and negative Throat: reports: Reviewed and negative Cardiac: reports: Reviewed and negative Respiratory: reports: Reviewed and negative GI: reports: Nausea, Vomiting : reports: Reviewed and negative Skin: reports: Reviewed and negative Musculoskeletal: reports: Reviewed and negative Neurologic: reports: Reviewed and negative Psychiatric: reports: Reviewed and negative Endocrine: reports: Reviewed and negative Immunocompromised: reports: Reviewed and negative PD PAST MEDICAL HISTORY - Past Medical History Cardiovascular: Hypertension, High cholesterol, Murmur Respiratory: Sleep apnea, CPAP use Endocrine/Autoimmune: Type 1 diabetes GI: GERD, Chronic constipation, Diverticulitis : Kidney stones, Other Musculoskeletal: Chronic back pain Derm: Eczema - Past Surgical History Past Surgical History: Yes General: Cholecystectomy - Present Medications Home Medications: Ambulatory Orders Medication Instructions Recorded Confirmed Aspirin Chewable [[facility] [place] 81 mg PO ONCE 04/08/13 11/15/19 Aspirin] Omeprazole [PriLOSEC] 20 mg PO DAILY 04/08/13 11/15/19 Atorvastatin Calcium 40 mg PO QPM 08/22/15 11/15/19 lisinopriL [Lisinopril] 40 mg PO DAILY 08/22/15 11/15/19 Diphenoxylate/Atropine [Lomotil] 1 each PO QID PRN #12 tablet 08/28/19 11/15/19 Furosemide [Lasix] 20 mg PO DAILY 08/28/19 11/15/19 Insulin Glargine [Lantus Solostar] 25 unit SUBQ BID 08/28/19 11/15/19 Ondansetron Odt [Zofran] 4 mg TL Q6H PRN #10 tablet 08/28/19 11/15/19 amLODIPine [Norvasc] 10 mg PO DAILY 08/28/19 11/15/19 Dicyclomine [Bentyl] 10 mg PO QID PRN #15 capsule 10/04/19 11/15/19 Promethazine [Phenergan] 25 mg PO Q6H PRN #10 tab 11/01/19 11/15/19 Promethazine [Phenergan] 25 mg PO Q6H PRN #20 tab 11/16/19 Ondansetron Odt [Zofran] 4 mg TL Q6H PRN #14 tablet 11/18/19 Promethazine Supp [Phenergan Supp] 25 mg [place] Q6HR PRN #20 supp 11/18/19 Metoclopramide [Reglan] 10 mg PO Q6H PRN #30 tablet 01/16/20 - Allergies Allergies/Adverse Reactions: Allergies Allergy/AdvReac Type Severity Reaction Status Date / Time rosuvastatin calcium * Allergy Hives Verified 01/16/20 08:55 [From [facility]] - Social History Does the pt smoke?: No Smoking Status: Never smoker Does the pt drink ETOH?: No Does the pt have substance abuse?: No - Immunizations Immunizations are current?: Yes - POLST Patient has POLST: No PD ED PE NORMAL - Vitals Vital signs reviewed: Yes - General General: Alert and oriented X 3, No acute distress, Other ( Nontoxic and nonseptic appearing) - HEENT HEENT: PERRL, Moist mucous membranes - Neck Neck: Supple, no meningeal sign - Cardiac Cardiac: RRR, No murmur, Strong equal pulses - Respiratory Respiratory: No respiratory distress, Clear bilaterally - Abdomen Abdomen: Other (The abdomen soft, its diffusely tender, but there is no peritoneal signs there is no midline abdominal pulsatile mass there is no ecchymosis no guarding, no rebounding, no hepatosplenomegaly, no CVA tenderness, no midline abdominal pulsatile mass) - Female Female : Pt declined - Rectal Rectal: Pt declined - Back Back: No CVA TTP, No spinal TTP - Derm Derm: Normal color, Warm and dry, No rash - Extremities Extremities: No deformity, No tenderness to palpate, Normal ROM s pain, No edema, No calf tenderness / cord - Neuro Neuro: Alert and oriented X 3, 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, No motor deficit, No sensory deficit, Normal speech - Psych Psych: Normal mood, Normal affect Results - Vitals Vitals: Vital Signs - 24 hr 02/09/20 03:15 Temperature 36.3 C L Heart Rate 111 H Respiratory 20 Rate Blood Pressure 196/96 H O2 Saturation 98 Oxygen O2 Source Room air - Labs Labs: Laboratory Tests 02/09/20 02/09/20 03:45 03:45 WBC 9.6 RBC 3.99 L Hgb 11.2 L Hct 35.5 L MCV 89.0 MCH 28.1 MCHC 31.5 L RDW 13.3 Plt Count 211 MPV 10.4 Neut # (Auto) 8.4 H Lymph # (Auto) 0.8 L [place] # (Auto) 0.3 Eos # (Auto) 0.0 Baso # (Auto) 0.0 Absolute Nucleated RBC 0.00 Nucleated RBC % 0.0 Sodium 137 Potassium 4.3 Chloride 103 Carbon Dioxide 22 Anion Gap 12.0 BUN 47 H Creatinine 1.7 H Estimated GFR (MDRD) 30 L Glucose 344 H Calcium 9.1 Total Bilirubin 0.6 AST 28 ALT 33 Alkaline Phosphatase 127 H Total Protein 6.9 Albumin 4.3 Globulin 2.6 Albumin/Globulin Ratio 1.7 Lipase 116 H PD MEDICAL DECISION MAKING - ED course Complexity details: reviewed results, re-evaluated patient, considered differential (Given the patient's history it is consistent with diabetic gastroparesis she does admit to marijuana use however she denies excessive use denies any fevers or severe abdominal pain she has had a previous cholecystectomy denies any dysuria or hematuria. We will check screening labs and provide IV fluid bolus, Analgesics and antiemetics.CBC and BMP and urinalysis and reevaluate.), d/w patient (06:26 vomiting discontinued, tolerated PO challenge, BG is elevated but anion gap is WNL. patient rehydrated. Creatinine is 1.7 which is consistent with recent lab values for this patient. ) Departure - Departure Disposition: 01 Home, Self Care Clinical Impression: Diabetic gastroparesis Condition: Stable Instructions: ED Diabetic Gastroparesis Follow-Up: Valerie Haque MD [Primary Care Provider] - 02/09/20 Comments: follow up with your primary care provider today. Use your existing antiemtics such as reglan as needed for vomiting.
[2020-02-09] MEDS ORDERED: PROMETHAZINE 25 MG/1 ML VIAL IM STA (03:25)
[2020-02-09] MEDS ORDERED: SODIUM CHLORIDE 0.9% 1,000 ML IV STA (03:28)
[2020-02-09] MEDS ORDERED: METOCLOPRAMIDE 10 MG/2 ML VIAL IVP STA (03:28)
[2020-02-09] MEDS ORDERED: ONDANSETRON 4 MG/2 ML VIAL IVP STA (03:31)
[2020-02-09] MEDS ORDERED: MORPHINE 2 MG/ML CARPUJECT IVP STA ×2 (03:31→05:24)
[2020-02-09 03:55] LABS: BASOPHILS % (AUTO) 0.3 %; EOSINOPHILS % (AUTO) 0.2 %; HGB - HEMOGLOBIN 11.2 g/dL (12.0-16.0); LYMPHOCYTES # (AUTO) 0.8 10^3/uL (1.5-3.5); LYMPHOCYTES % (AUTO) 8.8 %; MEAN CORPUSCULAR HEMOGLOBIN 28.1 pg (27.0-31.0); MEAN CORPUSCULAR HGB CONC 31.5 g/dL (32.0-36.0); MEAN PLATELET VOLUME 10.4 fL (7.9-10.8); MONOCYTES # (AUTO) 0.3 10^3/uL (0.0-1.0); MONOCYTES % (AUTO) 3.1 %; NEUTROPHILS # (AUTO) 8.4 10^3/uL (1.5-6.6); NEUTROPHILS % (AUTO) 87.3 %; PLT - PLATELET COUNT 211 10^3/uL (130-450); RED BLOOD COUNT 3.99 10^6/uL (4.20-5.40); RED CELL DISTRIBUTION WIDTH 13.3 % (12.0-15.0); WHITE BLOOD COUNT 9.6 x10^3/uL (4.8-10.8)
[2020-02-09 04:07] LABS: ALBUMIN 4.3 g/dL (3.2-5.5); ALBUMIN/GLOBULIN RATIO 1.7 (1.0-2.2); BILIRUBIN,TOTAL 0.6 mg/dL (0.2-1.0); CALCIUM 9.1 mg/dL (8.5-10.3); CREATININE 1.7 mg/dL (0.4-1.0); TOTAL PROTEIN 6.9 g/dL (6.7-8.2)
[2020-02-09] MEDS ORDERED: PROMETHAZINE INJ 25 MG in SODIUM CHLORIDE 0.9% 50 ML IV STA (05:24)
[2020-02-09 06:32] VITALS: BP 189/94
== END 2020-02-09 06:32 | disposition home or self-care (01) ==
LOC: ED 03:03
DX: E10.43 Type 1 diabetes mellitus with diabetic autonomic (poly)neuropathy (principal); K31.84 Gastroparesis; Z79.4 Long term (current) use of insulin; Z90.49 Acquired absence of other specified parts of digestive tract; I10 Essential (primary) hypertension; Z79.82 Long term (current) use of aspirin
CPT/HCPCS: 36415; 80053; 83690; 85025; 96361; 96365; 96375; 96376; 99284; J2765; J7040

== ENCOUNTER 2020-02-11 06:53 | Emergency (ER) | payer BC ==
--- NOTE | 2020-02-11 07:24 | ED Physician Documentation ---
PD HPI NVD - Stated complaint Stated Complaint: N/V/STOMACH PX - Chief complaint Chief Complaint: Abd Pain - History obtained from History obtained from: Patient - History of Present Illness Timing - onset: Last night (about 6 pm) Timing - details: Gradual onset, Still present, Waxing and waning Associated symptoms: Abdominal pain, Hematemesis. No: Fever Contributing factors: Diabetes. No: Sick contact, Bad food, Recent antibiotics Similar symptoms before: Diagnosis (presumed diabetic gastroparesis. Has GI appt March 03 (?). Has Reglan at home from recent Rx, but it did not help as felt like she vomited the med before it would work.) Recently seen: Emergency Dept (couple days ago with similar, and couple weeks prior to that. Has recent more common visits for same.) Review of Systems Constitutional: reports: Myalgias, Fatigue. denies: Fever, Chills Nose: denies: Rhinorrhea / runny nose, Congestion Throat: denies: Sore throat Respiratory: denies: Cough GI: reports: Abdominal Pain, Nausea, Vomiting. denies: Abdominal Swelling, Diarrhea : denies: Dysuria, Frequency PD PAST MEDICAL HISTORY - Past Medical History Cardiovascular: Hypertension, High cholesterol, Murmur Respiratory: Sleep apnea, CPAP use Endocrine/Autoimmune: Type 1 diabetes GI: GERD, Chronic constipation, Diverticulitis : Kidney stones, Other Musculoskeletal: Chronic back pain Derm: Eczema - Past Surgical History Past Surgical History: Yes General: Cholecystectomy - Present Medications Home Medications: Ambulatory Orders Medication Instructions Recorded Confirmed Aspirin Chewable [[place] 81 mg PO ONCE 04/08/13 11/15/19 Aspirin] Omeprazole [PriLOSEC] 20 mg PO DAILY 04/08/13 11/15/19 Atorvastatin Calcium 40 mg PO QPM 08/22/15 11/15/19 lisinopriL [Lisinopril] 40 mg PO DAILY 08/22/15 11/15/19 Diphenoxylate/Atropine [Lomotil] 1 each PO QID PRN #12 tablet 08/28/19 11/15/19 Furosemide [Lasix] 20 mg PO DAILY 08/28/19 11/15/19 Insulin Glargine [Lantus Solostar] 25 unit SUBQ BID 08/28/19 11/15/19 amLODIPine [Norvasc] 10 mg PO DAILY 08/28/19 11/15/19 Dicyclomine [Bentyl] 10 mg PO QID PRN #15 capsule 10/04/19 11/15/19 Metoclopramide [Reglan] 10 mg PO Q6H PRN #30 tablet 01/16/20 Dicyclomine [Bentyl] 10 mg PO BID #30 capsule 02/11/20 Docusate Sodium 100 mg PO DAILY #30 capsule 02/11/20 Prochlorperazine Supp [Compazine 25 mg [place] Q6H PRN #10 supp 02/11/20 Supp] - Allergies Allergies/Adverse Reactions: Allergies Allergy/AdvReac Type Severity Reaction Status Date / Time rosuvastatin calcium * Allergy Hives Verified 02/11/20 07:45 [From [facility]] - Social History Does the pt smoke?: No Smoking Status: Never smoker Does the pt drink ETOH?: No Does the pt have substance abuse?: No - Immunizations Immunizations are current?: Yes - POLST Patient has POLST: No PD ED PE NORMAL - Vitals Vital signs reviewed: Yes - General General: Alert and oriented X 3, Well developed/nourished - HEENT HEENT: PERRL (nonicteric), Pharynx benign - Neck Neck: Supple, no meningeal sign, No adenopathy - Cardiac Cardiac: RRR (mild tachycardic), No murmur - Respiratory Respiratory: Clear bilaterally - Abdomen Abdomen: Soft, Non distended, No organomegaly, Other (tender more upper abd to mid abd without guarding nor percussion tenderness. Bowel sounds diminished. ). No: Normal bowel sounds - Female Female : Deferred - Rectal Rectal: Deferred - Back Back: No CVA TTP - Derm Derm: Normal color - Extremities Extremities: No tenderness to palpate, No edema, No calf tenderness / cord - Neuro Neuro: Alert and oriented X 3, No motor deficit, Normal speech Results - Vitals Vitals: Vital Signs - 24 hr 02/11/20 02/11/20 02/11/20 07:00 08:27 08:28 Temperature 37.1 C Heart Rate 102 H 98 Respiratory 16 15 Rate Blood Pressure 198/89 H 179/74 H O2 Saturation 96 87 L 94 02/11/20 02/11/20 02/11/20 09:30 10:07 10:47 Temperature 36.8 C 36.8 C Heart Rate 80 83 85 Respiratory 16 15 16 Rate Blood Pressure 139/65 H 140/80 H 142/76 H O2 Saturation 95 95 96 Oxygen O2 Source Room air - Labs Labs: Laboratory Tests 02/11/20 02/11/20 08:05 08:05 WBC 8.7 RBC 4.19 L Hgb 12.3 Hct 37.0 MCV 88.3 MCH 29.4 MCHC 33.2 RDW 13.2 Plt Count 209 MPV 10.1 Neut # (Auto) 7.8 H Lymph # (Auto) 0.6 L [place] # (Auto) 0.3 Eos # (Auto) 0.0 Baso # (Auto) 0.0 Absolute Nucleated RBC 0.00 Nucleated RBC % 0.0 Sodium 137 Potassium 4.2 Chloride 103 Carbon Dioxide 20 L Anion Gap 14.0 H BUN 36 H Creatinine 1.5 H Estimated GFR (MDRD) 35 L Glucose 270 H Calcium 9.2 Magnesium 2.0 Total Bilirubin 1.0 AST 33 ALT 33 Alkaline Phosphatase 122 H Total Protein 7.1 Albumin 4.0 Globulin 3.1 Albumin/Globulin Ratio 1.3 Lipase 36 PD MEDICAL DECISION MAKING - ED course Complexity details: re-evaluated patient (feeling better with IV fluids and meds. Can Rx suppository and also have her regularly antispasmodic for awhile. ), considered differential (similar to prior episodes and not having peritoneal findings on exam. I did not see indications for imaging. ), d/w patient Departure - Departure Disposition: 01 Home, Self Care Clinical Impression: Diabetic gastroparesis Nausea and vomiting Qualifiers: Vomiting type: unspecified Vomiting Intractability: non-intractable Qualified Code(s): R11.2 - Nausea with vomiting, unspecified Condition: Stable Record reviewed to determine appropriate education?: Yes Instructions: ED Nausea Vomiting, ED Diabetic Gastroparesis Follow-Up: Valerie Haque MD [Primary Care Provider] - Prescriptions: Dicyclomine [Bentyl] 10 mg PO BID #30 capsule Docusate Sodium 100 mg PO DAILY #30 capsule Prochlorperazine Supp [Compazine Supp] 25 mg [place] Q6H PRN #10 supp PRN Reason: Nausea / Vomiting Comments: Stay well-hydrated. [place]aphne food and low carb diet. Consider possibly taking the dicyclomine which is an intestinal antispasmodic twice daily for the next several days to week. Also use a mild stool softener docusate daily with that as sometimes it can be constipating somewhat. Use the Reglan as needed for nausea. Alternatively Compazine suppositories (Reglan does not come in suppository) every 6 hours if needed for nausea and vomiting. This is particularly useful with the initial dose when you are vomiting, as the oral tablets commonly will work at that point. Compazine is similar to Reglan. Follow-up with the plan consultant in February as planned. Follow-up with your primary care as well. Discharge Date/Time: 02/11/20 10:58
[2020-02-11] MEDS ORDERED: LACTATED RINGERS 1,000 ML IV STA (07:59)
[2020-02-11] MEDS ORDERED: HYDROmorphone 2 MG/ML VIAL IVP STA (08:00)
[2020-02-11] MEDS ORDERED: METOCLOPRAMIDE 10 MG/2 ML VIAL IVP STA ×2 (08:00→09:55)
[2020-02-11] MEDS ORDERED: FAMOTIDINE 20 MG/2 ML SYRINGE IVP STA (08:00)
[2020-02-11] MEDS ORDERED: diphenhydrAMINE INJ 50 MG/ML VIAL IVP STA (08:00)
[2020-02-11 08:11] LABS: BASOPHILS % (AUTO) 0.2 %; HGB - HEMOGLOBIN 12.3 g/dL (12.0-16.0); LYMPHOCYTES # (AUTO) 0.6 10^3/uL (1.5-3.5); LYMPHOCYTES % (AUTO) 7.2 %; MEAN CORPUSCULAR HEMOGLOBIN 29.4 pg (27.0-31.0); MEAN CORPUSCULAR HGB CONC 33.2 g/dL (32.0-36.0); MEAN CORPUSCULAR VOLUME 88.3 fL (81.0-99.0); MEAN PLATELET VOLUME 10.1 fL (7.9-10.8); MONOCYTES # (AUTO) 0.3 10^3/uL (0.0-1.0); NEUTROPHILS # (AUTO) 7.8 10^3/uL (1.5-6.6); NEUTROPHILS % (AUTO) 88.9 %; PLT - PLATELET COUNT 209 10^3/uL (130-450); RED BLOOD COUNT 4.19 10^6/uL (4.20-5.40); RED CELL DISTRIBUTION WIDTH 13.2 % (12.0-15.0); WHITE BLOOD COUNT 8.7 x10^3/uL (4.8-10.8)
[2020-02-11 08:25] LABS: ALBUMIN/GLOBULIN RATIO 1.3 (1.0-2.2); CALCIUM 9.2 mg/dL (8.5-10.3); CREATININE 1.5 mg/dL (0.4-1.0); TOTAL PROTEIN 7.1 g/dL (6.7-8.2)
[2020-02-11] MEDS ORDERED: MAG HYDROX/AL HYDROX/SIMETH 30 ML UDC PO STA (09:57)
[2020-02-11 10:48] VITALS: BP 142/76
== END 2020-02-11 10:58 | disposition home or self-care (01) ==
LOC: ED 06:53
DX: E10.43 Type 1 diabetes mellitus with diabetic autonomic (poly)neuropathy (principal); K31.84 Gastroparesis; I10 Essential (primary) hypertension; Z79.82 Long term (current) use of aspirin
CPT/HCPCS: 36415; 80053; 83690; 83735; 85025; 96374; 96375; 96376; 99284; 99285; A9270; J1170; J1200; J2765; J7120

== ENCOUNTER 2020-04-15 06:15 | Emergency (ER) | payer BC ==
--- NOTE | 2020-04-15 07:02 | ED Physician Documentation ---
PD HPI NVD - Stated complaint Stated Complaint: N/V - Chief complaint Chief Complaint: Abd Pain - History obtained from History obtained from: Patient - History of Present Illness Timing - onset: Last night Timing - duration: Days (1/2) Timing - details: Abrupt onset, Still present Associated symptoms: Abdominal pain (upper). No: Fever, Chest pain, Hematemesis Contributing factors: Diabetes. No: Sick contact, Bad food, Travel Improved by: No: Vomiting Worsened by: Eating Similar symptoms before: Diagnosis (presumed diabetic gastroparesis.) Recently seen: Emergency Dept Review of Systems Constitutional: denies: Fever, Chills, Myalgias Nose: denies: Rhinorrhea / runny nose, Congestion Throat: denies: Sore throat Respiratory: denies: Cough GI: reports: Abdominal Pain, Nausea, Vomiting. denies: Diarrhea, Hematemesis : denies: Dysuria Neurologic: reports: Generalized weakness. denies: Focal weakness, Numbness, Near syncope, Altered mental status PD PAST MEDICAL HISTORY - Past Medical History Past Medical History: Yes Cardiovascular: Hypertension, High cholesterol, Murmur Respiratory: Sleep apnea, CPAP use Neuro: None Endocrine/Autoimmune: Type 1 diabetes GI: GERD, Chronic constipation, Diverticulitis, Other (saw GI in February and Dx with gastroparesis) [employer]ER: None : Kidney stones, Other HEENT: None Psych: None Musculoskeletal: Chronic back pain Derm: Eczema - Past Surgical History Past Surgical History: Yes General: Cholecystectomy - Present Medications Home Medications: Ambulatory Orders Medication Instructions Recorded Confirmed Aspirin Chewable [[facility] [place] 81 mg PO ONCE 04/08/13 11/15/19 Aspirin] Omeprazole [PriLOSEC] 20 mg PO DAILY 04/08/13 11/15/19 Atorvastatin Calcium 40 mg PO QPM 08/22/15 11/15/19 lisinopriL [Lisinopril] 40 mg PO DAILY 08/22/15 11/15/19 Diphenoxylate/Atropine [Lomotil] 1 each PO QID PRN #12 tablet 08/28/19 11/15/19 Furosemide [Lasix] 20 mg PO DAILY 08/28/19 11/15/19 Insulin Glargine [Lantus Solostar] 25 unit SUBQ BID 08/28/19 11/15/19 amLODIPine [Norvasc] 10 mg PO DAILY 08/28/19 11/15/19 Dicyclomine [Bentyl] 10 mg PO QID PRN #15 capsule 10/04/19 11/15/19 Metoclopramide [Reglan] 10 mg PO Q6H PRN #30 tablet 01/16/20 Dicyclomine [Bentyl] 10 mg PO BID #30 capsule 02/11/20 Docusate Sodium 100 mg PO DAILY #30 capsule 02/11/20 Prochlorperazine Supp [Compazine 25 mg [place] Q6H PRN #10 supp 02/11/20 Supp] - Allergies Allergies/Adverse Reactions: Allergies Allergy/AdvReac Type Severity Reaction Status Date / Time rosuvastatin calcium * Allergy Hives Verified 04/15/20 06:25 [From [facility]] - Social History Does the pt smoke?: No Smoking Status: Never smoker Does the pt drink ETOH?: No Does the pt have substance abuse?: No - Immunizations Immunizations are current?: Yes - POLST Patient has POLST: No PD ED PE NORMAL - Vitals Vital signs reviewed: Yes - General General: Alert and oriented X 3, Well developed/nourished, Other (Appears uncomfortable due to nausea. Holding emesis bag. Seems in pain.) - HEENT HEENT: Pharynx benign - Neck Neck: Supple, no meningeal sign, No adenopathy - Cardiac Cardiac: RRR, No murmur - Respiratory Respiratory: Clear bilaterally - Abdomen Abdomen: Normal bowel sounds, Soft, Non distended, No organomegaly, Other (tender without guarding in upper abd) - Derm Derm: Normal color, Warm and dry - Extremities Extremities: No edema, No calf tenderness / cord - Neuro Neuro: Alert and oriented X 3, No motor deficit, Normal speech Results - Vitals Vitals: Vital Signs - 24 hr 04/15/20 04/15/20 04/15/20 06:23 06:54 08:25 Temperature 36.5 C Heart Rate 95 96 Respiratory 17 17 22 Rate Blood Pressure 171/72 H 157/75 H O2 Saturation 94 97 Oxygen O2 Source Room air - Labs Labs: Laboratory Tests 04/15/20 04/15/20 04/15/20 07:34 07:34 07:34 WBC 9.7 RBC 3.76 L Hgb 11.4 L Hct 34.4 L MCV 91.5 MCH 30.3 MCHC 33.1 RDW 14.2 Plt Count 191 MPV 9.9 Neut # (Auto) 9.0 H Lymph # (Auto) 0.5 L [place] # (Auto) 0.2 Eos # (Auto) 0.0 Baso # (Auto) 0.0 Absolute Nucleated RBC 0.00 Nucleated RBC % 0.0 Sodium 140 Potassium 3.9 Chloride 106 Carbon Dioxide 21 Anion Gap 13.0 BUN 29 H Creatinine 1.6 H Estimated GFR (MDRD) 32 L Glucose 343 H POC Whole Bld Glucose 331 H Calcium 8.9 Magnesium 2.0 Total Bilirubin 0.8 AST 28 ALT 37 Alkaline Phosphatase 142 H Total Protein 6.8 Albumin 3.9 Globulin 2.9 Albumin/Globulin Ratio 1.3 Lipase 37 Urine Color Urine Clarity Urine pH Ur Specific [place] Urine Protein Urine Glucose (UA) Urine Ketones Urine Occult Blood Urine Nitrite Urine Bilirubin Urine Urobilinogen Ur Leukocyte Esterase Urine RBC Urine WBC Ur Squamous Epith Cells Urine Bacteria Ur Microscopic Review Urine Culture Comments Urine Opiates Screen Ur Oxycodone Screen Urine Methadone Screen Ur Propoxyphene Screen Ur Barbiturates Screen Ur Tricyclics Screen Ur Phencyclidine Scrn Ur Amphetamine Screen U Methamphetamines Scrn U Benzodiazepines Scrn Urine Cocaine Screen U Cannabinoids Screen 04/15/20 04/15/20 08:51 08:51 WBC RBC Hgb Hct MCV MCH MCHC RDW Plt Count MPV Neut # (Auto) Lymph # (Auto) [place] # (Auto) Eos # (Auto) Baso # (Auto) Absolute Nucleated RBC Nucleated RBC % Sodium Potassium Chloride Carbon Dioxide Anion Gap BUN Creatinine Estimated GFR (MDRD) Glucose POC Whole Bld Glucose Calcium Magnesium Total Bilirubin AST ALT Alkaline Phosphatase Total Protein Albumin Globulin Albumin/Globulin Ratio Lipase Urine Color YELLOW Urine Clarity CLEAR Urine pH 5.5 Ur Specific [place] >=1.030 H Urine Protein 100 H Urine Glucose (UA) >=1000 H Urine Ketones NEGATIVE Urine Occult Blood MODERATE H Urine Nitrite NEGATIVE Urine Bilirubin NEGATIVE Urine Urobilinogen 0.2 (NORMAL) Ur Leukocyte Esterase NEGATIVE Urine RBC 0-5 Urine WBC 0-3 Ur Squamous Epith Cells NONE SEEN Urine Bacteria Rare Ur Microscopic Review INDICATED Urine Culture Comments NOT INDICATED Urine Opiates Screen NEGATIVE Ur Oxycodone Screen NEGATIVE Urine Methadone Screen NEGATIVE Ur Propoxyphene Screen NEGATIVE Ur Barbiturates Screen NEGATIVE Ur Tricyclics Screen NEGATIVE Ur Phencyclidine Scrn NEGATIVE Ur Amphetamine Screen NEGATIVE U Methamphetamines Scrn NEGATIVE U Benzodiazepines Scrn NEGATIVE Urine Cocaine Screen NEGATIVE U Cannabinoids Screen NEGATIVE PD MEDICAL DECISION MAKING - ED course Complexity details: reviewed old records (Similar to prior episodes of gastroparesis versus cyclic vomiting. We will give IV fluids and medicines until improved. Check electrolytes. Not much indication for imaging.), re- evaluated patient (Several doses of medicines and ultimately felt improved enough on nausea and pain to at home.), considered differential, d/w patient Departure - Departure Disposition: , Self Care Clinical Impression: Vomiting Qualifiers: Vomiting type: unspecified Vomiting Intractability: intractable Nausea presence: with nausea Qualified Code(s): R11.2 - Nausea with vomiting, unspecified Abdominal pain Qualifiers: Abdominal location: upper abdomen, unspecified Qualified Code(s): R10.10 - Upper abdominal pain, unspecified Condition: Stable Record reviewed to determine appropriate education?: Yes Follow-Up: OWEN CHERRY MD [Primary Care Provider] - Comments: Continue usual medications at home.
[2020-04-15] MEDS ORDERED: LACTATED RINGERS 1,000 ML IV STA (07:23)
[2020-04-15] MEDS ORDERED: HALOPERIDOL 5 MG/ML VIAL IVP ONE (07:23)
[2020-04-15] MEDS ORDERED: HYDROmorphone 2 MG/ML VIAL IVP STA (07:23)
[2020-04-15 07:41] LABS: BASOPHILS % (AUTO) 0.1 %; HGB - HEMOGLOBIN 11.4 g/dL (12.0-16.0); LYMPHOCYTES # (AUTO) 0.5 10^3/uL (1.5-3.5); MEAN CORPUSCULAR HEMOGLOBIN 30.3 pg (27.0-31.0); MEAN CORPUSCULAR HGB CONC 33.1 g/dL (32.0-36.0); MEAN CORPUSCULAR VOLUME 91.5 fL (81.0-99.0); MEAN PLATELET VOLUME 9.9 fL (7.9-10.8); MONOCYTES # (AUTO) 0.2 10^3/uL (0.0-1.0); MONOCYTES % (AUTO) 1.7 %; NEUTROPHILS % (AUTO) 92.9 %; PLT - PLATELET COUNT 191 10^3/uL (130-450); RED BLOOD COUNT 3.76 10^6/uL (4.20-5.40); RED CELL DISTRIBUTION WIDTH 14.2 % (12.0-15.0); WHITE BLOOD COUNT 9.7 x10^3/uL (4.8-10.8)
[2020-04-15 07:53] LABS: ALBUMIN 3.9 g/dL (3.2-5.5); ALBUMIN/GLOBULIN RATIO 1.3 (1.0-2.2); BILIRUBIN,TOTAL 0.8 mg/dL (0.2-1.0); CALCIUM 8.9 mg/dL (8.5-10.3); CREATININE 1.6 mg/dL (0.4-1.0); TOTAL PROTEIN 6.8 g/dL (6.7-8.2)
[2020-04-15] MEDS ORDERED: METOCLOPRAMIDE 10 MG/2 ML VIAL IVP STA (08:08)
[2020-04-15 09:05] LABS: BILIRUBIN,URINE NEGATIVE (NEGATIVE); GLUCOSE, URINE (UA) >=1000 mg/dL (NEGATIVE); KETONES,URINE (UA) NEGATIVE (NEGATIVE); LEUKOCYTE ESTERASE, URINE NEGATIVE (NEGATIVE); NITRITE,URINE NEGATIVE (NEGATIVE); OCCULT BLOOD,URINE MODERATE (NEGATIVE); PH,URINE 5.5 PH (5.0-7.5); PROTEIN,URINE 100 mg/dL (NEGATIVE); UROBILINOGEN,URINE 0.2 (NORMAL) E.U./dL (NORMAL)
[2020-04-15] MEDS ORDERED: PROMETHAZINE INJ 12.5 MG in SODIUM CHLORIDE 0.9% 50 ML IV STA (09:05)
[2020-04-15 09:15] LABS: AMPHETAMINE SCREEN,URINE NEGATIVE (NEGATIVE); BENZODIAZEPINES SCREEN, URINE NEGATIVE (NEGATIVE); COCAINE SCREEN URINE NEGATIVE (NEGATIVE); METHADONE SCREEN, URINE NEGATIVE (NEGATIVE); METHAMPHETAMINES SCREEN, URINE NEGATIVE (NEGATIVE); MUDS CUTOFF CONCENTRATIONS CUTOFF CONC BELOW:; OPIATE SCREEN, URINE NEGATIVE (NEGATIVE); OXYCODONE SCREEN, URINE NEGATIVE (NEGATIVE); PROPOXYPHENE SCREEN, URINE NEGATIVE (NEGATIVE); TRICYCLIC ANTIDEPRESSANT,URINE NEGATIVE (NEGATIVE)
[2020-04-15 09:16] LABS: CLARITY,URINE CLEAR (CLEAR)
[2020-04-15 09:22] LABS: BACTERIA,URINE Rare /HPF (None Seen); RBC,URINE 0-5 /HPF (0-5); SQUAMOUS EPITHELIAL CELL,UR NONE SEEN (<= Few)
[2020-04-15 10:21] VITALS: BP 166/82
== END 2020-04-15 10:21 | disposition home or self-care (01) ==
LOC: ED 06:15
DX: R10.10 Upper abdominal pain, unspecified (principal); R11.2 Nausea with vomiting, unspecified; E10.9 Type 1 diabetes mellitus without complications
CPT/HCPCS: 36415; 80053; 80306; 81001; 83690; 83735; 85025; 96361; 96365; 96375; 99284; 99285; J1170; J2765; J7040; J7120; 81003; 87086

== ENCOUNTER 2020-05-25 20:49 | Emergency (ER) | payer BC ==
--- NOTE | 2020-05-25 21:13 | ED Physician Documentation ---
PD HPI ABD PAIN - Stated complaint Stated Complaint: NAUSEA - Chief complaint Chief Complaint: Abd Pain - History obtained from History obtained from: Patient - History of Present Illness Timing - onset: Today Timing - details: Abrupt onset, Waxing and waning Pain level now: 8 Quality: Pain Location: All over / everywhere Radiation: No: Chest, , Lower back, Left flank, Left shoulder, Right flank, Right shoulder, Upper back Improved by: Other (nothing) Worsened by: Eating Associated symptoms: Nausea, Vomiting. No: Fever, Diarrhea, Constipation Similar symptoms before: Diagnosis (gastroparesis) Recently seen: Emergency Dept - Additional information Additional information: Treated and released from this emergency department yesterday for same symptoms. Symptoms reoccurred this afternoon. Complains of generalized abdominal cramping pain, nausea, vomiting. She says same thing as yesterday. Patient has had many visits for these symptoms over past several years to this emergency department. Review of Systems Constitutional: reports: Reviewed and negative Cardiac: reports: Reviewed and negative Respiratory: reports: Reviewed and negative GI: reports: Abdominal Pain, Nausea, Vomiting PD PAST MEDICAL HISTORY - Past Medical History Past Medical History: Yes Cardiovascular: Hypertension, High cholesterol, Murmur Respiratory: Sleep apnea, CPAP use Neuro: None Endocrine/Autoimmune: Type 1 diabetes GI: GERD, Chronic constipation, Diverticulitis, Other PATIENT TRANSPORT ORDERLY: None : Kidney stones, Other HEENT: None Psych: None Musculoskeletal: Chronic back pain Derm: Eczema - Past Surgical History Past Surgical History: Yes General: Cholecystectomy - Present Medications Home Medications: Ambulatory Orders Medication Instructions Recorded Confirmed Aspirin Chewable [[facility] [place] 81 mg PO ONCE 04/08/13 11/15/19 Aspirin] Omeprazole [PriLOSEC] 20 mg PO DAILY 04/08/13 11/15/19 Atorvastatin Calcium 40 mg PO QPM 08/22/15 11/15/19 lisinopriL [Lisinopril] 40 mg PO DAILY 08/22/15 11/15/19 Diphenoxylate/Atropine [Lomotil] 1 each PO QID PRN #12 tablet 08/28/19 11/15/19 Furosemide [Lasix] 20 mg PO DAILY 08/28/19 11/15/19 Insulin Glargine [Lantus Solostar] 25 unit SUBQ BID 08/28/19 11/15/19 amLODIPine [Norvasc] 10 mg PO DAILY 08/28/19 11/15/19 Dicyclomine [Bentyl] 10 mg PO QID PRN #15 capsule 10/04/19 11/15/19 Metoclopramide [Reglan] 10 mg PO Q6H PRN #30 tablet 01/16/20 Dicyclomine [Bentyl] 10 mg PO BID #30 capsule 02/11/20 Docusate Sodium 100 mg PO DAILY #30 capsule 02/11/20 Prochlorperazine Supp [Compazine 25 mg [place] Q6H PRN #10 supp 02/11/20 Supp] Promethazine [Phenergan] 25 mg PO Q6H PRN #10 tab 05/24/20 - Allergies Allergies/Adverse Reactions: Allergies Allergy/AdvReac Type Severity Reaction Status Date / Time rosuvastatin calcium * Allergy Hives Verified 05/25/20 21:00 [From [facility]] - Social History Does the pt smoke?: No Smoking Status: Never smoker Does the pt drink ETOH?: No Does the pt have substance abuse?: No - Immunizations Immunizations are current?: Yes - POLST Patient has POLST: No PD ED PE NORMAL - Vitals Vital signs reviewed: Yes - General General: Alert and oriented X 3, No acute distress, Well developed/nourished - Cardiac Cardiac: No murmur - Respiratory Respiratory: No respiratory distress, Clear bilaterally - Abdomen Abdomen: Soft, Non distended - Derm Derm: Normal color, Warm and dry PD ED PE EXPANDED - Cardiac Cardiac: Tachy, Regular Rhythm - Abdomen Abdomen: Decreased BS, Tender to palpation Results - Vitals Vitals: Oxygen O2 Source Nasal cannula - Labs Labs: Laboratory Tests 05/25/20 05/25/20 05/25/20 21:10 21:36 21:36 WBC 9.9 RBC 3.96 L Hgb 11.7 L Hct 36.4 L MCV 91.9 MCH 29.5 MCHC 32.1 RDW 13.4 Plt Count 199 MPV 10.0 Neut # (Auto) 8.0 H Lymph # (Auto) 1.3 L [place] # (Auto) 0.6 Eos # (Auto) 0.1 Baso # (Auto) 0.0 Absolute Nucleated RBC 0.00 Nucleated RBC % 0.0 Sodium 140 Potassium 3.8 Chloride 106 Carbon Dioxide 21 Anion Gap 13.0 BUN 45 H Creatinine 1.7 H Estimated GFR (MDRD) 30 L Glucose 221 H Calcium 9.1 Urine Color YELLOW Urine Clarity CLEAR Urine pH 5.5 Ur Specific [place] 1.025 Urine Protein 100 H Urine Glucose (UA) NEGATIVE Urine Ketones NEGATIVE Urine Occult Blood MODERATE H Urine Nitrite NEGATIVE Urine Bilirubin NEGATIVE Urine Urobilinogen 0.2 (NORMAL) Ur Leukocyte Esterase NEGATIVE Urine RBC 0-5 Urine WBC 0-3 Ur Squamous Epith Cells RARE Squamous Urine Bacteria Rare Urine Culture Comments NOT INDICATED PD MEDICAL DECISION MAKING - ED course Complexity details: reviewed results, re-evaluated patient, considered differential, d/w patient ED course: eventually improved to the point that she was comfortable with discharge after several different medications, multiple rounds of meds, and 2 liters normal saline IV. she requested to be allowed to stay in ED for a few hours before being discharged for fear of symptoms returning once they had subsided and thus had a long ED stay Departure - Departure Disposition: 01 Home, Self Care Clinical Impression: Abdominal pain, Vomiting Condition: Good Instructions: ED Abdominal Pain Unkn Cause, ED Nausea Vomiting Follow-Up: Valerie Haque MD [Primary Care Provider] - Discharge Date/Time: 05/26/20 02:17
[2020-05-25 21:23] LABS: BILIRUBIN,URINE NEGATIVE (NEGATIVE); GLUCOSE, URINE (UA) NEGATIVE (NEGATIVE); KETONES,URINE (UA) NEGATIVE (NEGATIVE); LEUKOCYTE ESTERASE, URINE NEGATIVE (NEGATIVE); NITRITE,URINE NEGATIVE (NEGATIVE); OCCULT BLOOD,URINE MODERATE (NEGATIVE); PH,URINE 5.5 PH (5.0-7.5); PROTEIN,URINE 100 mg/dL (NEGATIVE); UROBILINOGEN,URINE 0.2 (NORMAL) E.U./dL (NORMAL)
[2020-05-25 21:24] LABS: CLARITY,URINE CLEAR (CLEAR)
[2020-05-25] MEDS ORDERED: PROMETHAZINE INJ 25 MG in SODIUM CHLORIDE 0.9% 50 ML IV STA (21:28)
[2020-05-25] MEDS ORDERED: ONDANSETRON 4 MG/2 ML VIAL IVP STA ×2 (21:28→23:03)
[2020-05-25] MEDS ORDERED: SODIUM CHLORIDE 0.9% 1,000 ML IV STA (21:28)
[2020-05-25] MEDS ORDERED: HYDROmorphone 1 MG/ML CARPUJECT IVP STA (21:29)
[2020-05-25 21:32] LABS: RBC,URINE 0-5 /HPF (0-5); SQUAMOUS EPITHELIAL CELL,UR RARE Squamous (<= Few)
[2020-05-25 21:33] LABS: BACTERIA,URINE Rare /HPF (None Seen)
[2020-05-25] MEDS ORDERED: PROMETHAZINE 25 MG/1 ML VIAL ONE (21:39)
[2020-05-25 21:48] LABS: BASOPHILS % (AUTO) 0.3 %; EOSINOPHILS # (AUTO) 0.1 10^3/uL (0.0-0.7); EOSINOPHILS % (AUTO) 0.5 %; HGB - HEMOGLOBIN 11.7 g/dL (12.0-16.0); LYMPHOCYTES # (AUTO) 1.3 10^3/uL (1.5-3.5); LYMPHOCYTES % (AUTO) 12.7 %; MEAN CORPUSCULAR HEMOGLOBIN 29.5 pg (27.0-31.0); MEAN CORPUSCULAR HGB CONC 32.1 g/dL (32.0-36.0); MEAN CORPUSCULAR VOLUME 91.9 fL (81.0-99.0); MONOCYTES # (AUTO) 0.6 10^3/uL (0.0-1.0); MONOCYTES % (AUTO) 5.6 %; NEUTROPHILS % (AUTO) 80.4 %; PLT - PLATELET COUNT 199 10^3/uL (130-450); RED BLOOD COUNT 3.96 10^6/uL (4.20-5.40); RED CELL DISTRIBUTION WIDTH 13.4 % (12.0-15.0); WHITE BLOOD COUNT 9.9 x10^3/uL (4.8-10.8)
[2020-05-25 21:58] LABS: CALCIUM 9.1 mg/dL (8.5-10.3); CREATININE 1.7 mg/dL (0.4-1.0)
[2020-05-25] MEDS ORDERED: HALOPERIDOL 5 MG/ML VIAL IVP ONE ×2 (22:43→23:03)
[2020-05-26] MEDS ORDERED: KETOROLAC 30 MG/ML VIAL IVP STA (00:03)
[2020-05-26] MEDS ORDERED: SODIUM CHLORIDE 0.9% 1,000 ML IV STA (00:03)
[2020-05-26] MEDS ORDERED: METOCLOPRAMIDE 10 MG/2 ML VIAL IVP STA (00:04)
[2020-05-26 01:59] VITALS: BP 146/73
== END 2020-05-26 02:17 | disposition home or self-care (01) ==
LOC: ED 20:49
DX: R10.84 Generalized abdominal pain (principal); R11.2 Nausea with vomiting, unspecified; E10.9 Type 1 diabetes mellitus without complications; I10 Essential (primary) hypertension; Z79.82 Long term (current) use of aspirin
CPT/HCPCS: 36415; 80048; 81001; 85025; 96361; 96365; 96375; 99284; 99285; J1170; J2765; J7040; 87086

== ENCOUNTER 2020-06-13 10:31 | Emergency (ER) | payer BC ==
[2020-06-13 11:17] LABS: BASOPHILS # (AUTO) 0.1 10^3/uL (0.0-0.1); BASOPHILS % (AUTO) 0.6 %; EOSINOPHILS # (AUTO) 0.1 10^3/uL (0.0-0.7); EOSINOPHILS % (AUTO) 0.5 %; HGB - HEMOGLOBIN 13.2 g/dL (12.0-16.0); LYMPHOCYTES # (AUTO) 1.3 10^3/uL (1.5-3.5); LYMPHOCYTES % (AUTO) 12.8 %; MEAN CORPUSCULAR HEMOGLOBIN 29.9 pg (27.0-31.0); MEAN CORPUSCULAR HGB CONC 32.3 g/dL (32.0-36.0); MEAN CORPUSCULAR VOLUME 92.5 fL (81.0-99.0); MEAN PLATELET VOLUME 10.3 fL (7.9-10.8); MONOCYTES # (AUTO) 0.4 10^3/uL (0.0-1.0); MONOCYTES % (AUTO) 3.9 %; NEUTROPHILS % (AUTO) 81.9 %; PLT - PLATELET COUNT 193 10^3/uL (130-450); RED BLOOD COUNT 4.42 10^6/uL (4.20-5.40); RED CELL DISTRIBUTION WIDTH 12.9 % (12.0-15.0); WHITE BLOOD COUNT 9.7 x10^3/uL (4.8-10.8)
[2020-06-13 11:27] LABS: ALBUMIN 4.2 g/dL (3.2-5.5); ALBUMIN/GLOBULIN RATIO 1.4 (1.0-2.2); BILIRUBIN,TOTAL 0.4 mg/dL (0.2-1.0); CALCIUM 9.6 mg/dL (8.5-10.3); CREATININE 1.6 mg/dL (0.4-1.0); TOTAL PROTEIN 7.2 g/dL (6.7-8.2)
[2020-06-13 12:32] LABS: BILIRUBIN,URINE NEGATIVE (NEGATIVE); GLUCOSE, URINE (UA) NEGATIVE (NEGATIVE); KETONES,URINE (UA) NEGATIVE (NEGATIVE); LEUKOCYTE ESTERASE, URINE NEGATIVE (NEGATIVE); NITRITE,URINE NEGATIVE (NEGATIVE); OCCULT BLOOD,URINE MODERATE (NEGATIVE); PROTEIN,URINE >=300 mg/dL (NEGATIVE); UROBILINOGEN,URINE 0.2 (NORMAL) E.U./dL (NORMAL)
[2020-06-13 12:35] LABS: CLARITY,URINE CLEAR (CLEAR)
[2020-06-13 12:44] LABS: BACTERIA,URINE None Seen /HPF (None Seen); RBC,URINE 0-5 /HPF (0-5); SQUAMOUS EPITHELIAL CELL,UR FEW Squamous (<= Few)
[2020-06-13] MEDS ORDERED: SODIUM CHLORIDE 0.9% 1,000 ML IV STA (12:45)
[2020-06-13] MEDS ORDERED: PROCHLORPERAZINE 10 MG/2 ML VIAL IVP STA (12:45)
[2020-06-13] MEDS ORDERED: HYDROmorphone 1 MG/ML CARPUJECT IVP STA (12:48)
[2020-06-13] MEDS ORDERED: HALOPERIDOL 5 MG/ML VIAL IVP ONE (13:16)
[2020-06-13 15:03] VITALS: BP 155/66
--- NOTE | 2020-06-13 15:11 | ED Physician Documentation ---
PD HPI ABD PAIN - Stated complaint Stated Complaint: V/N - Chief complaint Chief Complaint: Abd Pain - History obtained from History obtained from: Patient - History of Present Illness Timing - onset: Today Timing - duration: Hours Timing - details: Abrupt onset, Still present Quality: Cramping, Aching, Pain, Other (with nausea and vomiting) Associated symptoms: Nausea, Vomiting. No: Fever Similar symptoms before: Diagnosis (Prior similar episodes episodically from gastroparesis versus cyclic vomiting.) Review of Systems Constitutional: denies: Fever, Chills Nose: denies: Rhinorrhea / runny nose, Congestion Throat: denies: Sore throat Respiratory: denies: Cough GI: reports: Abdominal Pain (upper), Nausea, Vomiting, Constipation. 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: None : Kidney stones, Other HEENT: None Psych: None Musculoskeletal: Chronic back pain Derm: Eczema - Past Surgical History Past Surgical History: Yes General: Cholecystectomy - Present Medications Home Medications: Ambulatory Orders Medication Instructions Recorded Confirmed Aspirin Chewable [[facility] [place] 81 mg PO ONCE 04/08/13 11/15/19 Aspirin] Omeprazole [PriLOSEC] 20 mg PO DAILY 04/08/13 11/15/19 Atorvastatin Calcium 40 mg PO QPM 08/22/15 11/15/19 lisinopriL [Lisinopril] 40 mg PO DAILY 08/22/15 11/15/19 Diphenoxylate/Atropine [Lomotil] 1 each PO QID PRN #12 tablet 08/28/19 11/15/19 Furosemide [Lasix] 20 mg PO DAILY 08/28/19 11/15/19 Insulin Glargine [Lantus Solostar] 25 unit SUBQ BID 08/28/19 11/15/19 amLODIPine [Norvasc] 10 mg PO DAILY 08/28/19 11/15/19 Dicyclomine [Bentyl] 10 mg PO QID PRN #15 capsule 10/04/19 11/15/19 Metoclopramide [Reglan] 10 mg PO Q6H PRN #30 tablet 01/16/20 Dicyclomine [Bentyl] 10 mg PO BID #30 capsule 02/11/20 Docusate Sodium 100 mg PO DAILY #30 capsule 02/11/20 Prochlorperazine Supp [Compazine 25 mg [place] Q6H PRN #10 supp 02/11/20 Supp] Promethazine [Phenergan] 25 mg PO Q6H PRN #10 tab 05/24/20 Promethazine Supp [Phenergan Supp] 25 mg CA Q6H PRN #10 supp 06/13/20 - Allergies Allergies/Adverse Reactions: Allergies Allergy/AdvReac Type Severity Reaction Status Date / Time rosuvastatin calcium * Allergy Hives Verified 06/13/20 10:38 [From Crestor] - Social History Does the pt smoke?: No Smoking Status: Never smoker Does the pt drink ETOH?: No Does the pt have substance abuse?: No - Immunizations Immunizations are current?: Yes - POLST Patient has POLST: No PD ED PE NORMAL - Vitals Vital signs reviewed: Yes - General General: Alert and oriented X 3, Well developed/nourished, Other (vomiting in ER. seeems in pain for upper abd. ) - HEENT HEENT: Pharynx benign - Neck Neck: Supple, no meningeal sign, No adenopathy - Cardiac Cardiac: RRR, No murmur - Respiratory Respiratory: Clear bilaterally - Abdomen Abdomen: Normal bowel sounds, Soft, Non distended, No organomegaly, Other (obese; tender upper abd/epigastric area. ) - Derm Derm: Normal color, Warm and dry - Extremities Extremities: No edema, No calf tenderness / cord - Neuro Neuro: Alert and oriented X 3, No motor deficit, Normal speech Results - Vitals Vitals: Vital Signs - 24 hr 06/13/20 06/13/20 06/13/20 10:38 12:36 13:00 Temperature 36.7 C Heart Rate 90 105 H 98 Respiratory 18 18 18 Rate Blood Pressure 170/63 H 161/77 H 142/55 H O2 Saturation 99 98 96 06/13/20 06/13/20 13:50 15:00 Temperature Heart Rate 99 97 Respiratory 17 18 Rate Blood Pressure 155/72 H 155/66 H O2 Saturation 97 98 Oxygen O2 Source Room air - Labs Labs: Laboratory Tests 06/13/20 06/13/20 06/13/20 11:08 11:08 12:26 WBC 9.7 RBC 4.42 Hgb 13.2 Hct 40.9 MCV 92.5 MCH 29.9 MCHC 32.3 RDW 12.9 Plt Count 193 MPV 10.3 Neut # (Auto) 8.0 H Lymph # (Auto) 1.3 L [place] # (Auto) 0.4 Eos # (Auto) 0.1 Baso # (Auto) 0.1 Absolute Nucleated RBC 0.00 Nucleated RBC % 0.0 Sodium 142 Potassium 4.3 Chloride 110 Carbon Dioxide 21 Anion Gap 11.0 BUN 35 H Creatinine 1.6 H Estimated GFR (MDRD) 32 L Glucose 185 H Calcium 9.6 Total Bilirubin 0.4 AST 41 ALT 56 Alkaline Phosphatase 181 H Total Protein 7.2 Albumin 4.2 Globulin 3.0 Albumin/Globulin Ratio 1.4 Lipase 109 H Urine Color YELLOW Urine Clarity CLEAR Urine pH 5.0 Ur Specific [place] >=1.030 H Urine Protein >=300 H Urine Glucose (UA) NEGATIVE Urine Ketones NEGATIVE Urine Occult Blood MODERATE H Urine Nitrite NEGATIVE Urine Bilirubin NEGATIVE Urine Urobilinogen 0.2 (NORMAL) Ur Leukocyte Esterase NEGATIVE Urine RBC 0-5 Urine WBC 0-3 Ur Squamous Epith Cells FEW Squamous Urine Bacteria None Seen Ur Microscopic Review INDICATED Urine Culture Comments NOT INDICATED PD MEDICAL DECISION MAKING - ED course Complexity details: reviewed old records, re-evaluated patient (She is feeling stepwise improvement with medications. She subsequently does feel improved enough to try going home with rested got an minimal fluids through the afternoon. Wrote prescription for suppository antiemetic.), considered differential, d/w patient Departure - Departure Disposition: Home, Self Care Clinical Impression: Nausea and vomiting Qualifiers: Vomiting type: unspecified Vomiting Intractability: intractable Qualified Code(s): R11.2 - Nausea with vomiting, unspecified Abdominal pain Qualifiers: Abdominal location: upper abdomen, unspecified Qualified Code(s): R10.10 - Upper abdominal pain, unspecified Condition: Stable Record reviewed to determine appropriate education?: Yes Instructions: ED Nausea Vomiting Prescriptions: Promethazine Supp [Phenergan Supp] 25 mg CA Q6H PRN #10 supp PRN Reason: Nausea / Vomiting Comments: Minimal sips of water and such through the afternoon to rest your stomach. After that progress a little bit through the evening. Start light food later this evening or tomorrow. Use your home nausea medications as needed. You can use promethazine suppository alternatively as well. Return as needed. Discharge Date/Time: 06/13/20 15:36
[2020-06-13] MEDS ORDERED: ONDANSETRON 4 MG/2 ML VIAL IVP STA (15:12)
== END 2020-06-13 15:36 | disposition home or self-care (01) ==
LOC: ED 10:31
DX: R10.10 Upper abdominal pain, unspecified (principal); R11.2 Nausea with vomiting, unspecified; E10.9 Type 1 diabetes mellitus without complications; Z79.4 Long term (current) use of insulin
CPT/HCPCS: 36415; 80053; 81001; 83690; 85025; 96374; 96375; 99284; 99285; J1170; 81003; 87086

== ENCOUNTER 2020-06-15 07:47 | Emergency (ER) | payer BC ==
[2020-06-15] MEDS ORDERED: HYDROmorphone 1 MG/ML CARPUJECT IVP STA (08:19)
[2020-06-15] MEDS ORDERED: METOCLOPRAMIDE 10 MG/2 ML VIAL IVP STA (08:19)
[2020-06-15] MEDS ORDERED: SODIUM CHLORIDE 0.9% 2,000 ML IV STA (08:20)
--- NOTE | 2020-06-15 08:29 | ED Physician Documentation ---
History of Present Illness - Stated complaint Stated Complaint: N/V, ABD PX - Chief complaint Chief Complaint: Abd Pain - History obtained from History obtained from: Patient, Family - History of Present Illness Timing: Chronic Pain level max: 10 Pain level now: 10 - Additonal information Additional information: 64-year-old female presents to the emergency department with nausea vomiting and abdominal pain. This is a chronic ongoing condition for her. Seen 4 times this month in the emergency department for same. She denies any marijuana use. Denies any other drug use. No fevers. No trauma. She is on Reglan at home. Nothing makes it better or worse. 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 : Kidney stones, Other HEENT: None Psych: None Musculoskeletal: Chronic back pain Derm: Eczema - Past Surgical History Past Surgical History: Yes General: Cholecystectomy - Present Medications Home Medications: Ambulatory Orders Medication Instructions Recorded Confirmed Aspirin Chewable [[facility] 81 mg PO ONCE 04/08/13 11/15/19 Aspirin] Omeprazole [PriLOSEC] 20 mg PO DAILY 04/08/13 11/15/19 Atorvastatin Calcium 40 mg PO QPM 08/22/15 11/15/19 lisinopriL [Lisinopril] 40 mg PO DAILY 08/22/15 11/15/19 Diphenoxylate/Atropine [Lomotil] 1 each PO QID PRN #12 tablet 08/28/19 11/15/19 Furosemide [Lasix] 20 mg PO DAILY 08/28/19 11/15/19 Insulin Glargine [Lantus Solostar] 25 unit SUBQ BID 08/28/19 11/15/19 amLODIPine [Norvasc] 10 mg PO DAILY 08/28/19 11/15/19 Dicyclomine [Bentyl] 10 mg PO QID PRN #15 capsule 10/04/19 11/15/19 Metoclopramide [Reglan] 10 mg PO Q6H PRN #30 tablet 01/16/20 Dicyclomine [Bentyl] 10 mg PO BID #30 capsule 02/11/20 Docusate Sodium 100 mg PO DAILY #30 capsule 02/11/20 Prochlorperazine Supp [Compazine 25 mg [place] Q6H PRN #10 supp 02/11/20 Supp] Promethazine [Phenergan] 25 mg PO Q6H PRN #10 tab 05/24/20 Promethazine Supp [Phenergan Supp] 25 mg UT Q6H PRN #10 supp 06/13/20 - Allergies Allergies/Adverse Reactions: Allergies Allergy/AdvReac Type Severity Reaction Status Date / Time rosuvastatin calcium * Allergy Hives Verified 06/15/20 07:57 [From [facility]] - Social History Does the pt smoke?: No Smoking Status: Never smoker Does the pt drink ETOH?: No Does the pt have substance abuse?: No - Immunizations Immunizations are current?: Yes - POLST Patient has POLST: No PD ED PE NORMAL - Vitals Vital signs reviewed: Yes - General General: Alert and oriented X 3, No acute distress, Other (Obese female) - HEENT HEENT: PERRL, Moist mucous membranes - Neck Neck: Supple, no meningeal sign - Cardiac Cardiac: RRR, Strong equal pulses - Respiratory Respiratory: No respiratory distress, Clear bilaterally - Abdomen Abdomen: Soft, Non tender, Non distended - Back Back: No CVA TTP - Derm Derm: Warm and dry - Extremities Extremities: No calf tenderness / cord - Neuro Neuro: Alert and oriented X 3 - Psych Psych: Normal mood, Normal affect Results - Vitals Vitals: Vital Signs - 24 hr 06/15/20 06/15/20 06/15/20 07:47 08:02 09:30 Temperature 37.3 C Heart Rate 100 101 H 99 Respiratory 18 19 19 Rate Blood Pressure 185/83 H 149/118 H 177/75 H O2 Saturation 94 97 96 06/15/20 06/15/20 06/15/20 10:30 12:00 13:00 Temperature Heart Rate 108 H 98 95 Respiratory 15 15 21 Rate Blood Pressure 172/78 H 180/67 H 145/81 H O2 Saturation 94 92 94 Oxygen O2 Source Room air - Labs Labs: Laboratory Tests 06/15/20 06/15/20 06/15/20 08:18 08:18 10:46 WBC 11.3 H RBC 4.44 Hgb 13.1 Hct 40.6 MCV 91.4 MCH 29.5 MCHC 32.3 RDW 13.2 Plt Count 216 MPV 9.8 Neut # (Auto) 9.6 H Lymph # (Auto) 1.1 L [place] # (Auto) 0.6 Eos # (Auto) 0.0 Baso # (Auto) 0.0 Absolute Nucleated RBC 0.00 Nucleated RBC % 0.0 Sodium 142 Potassium 4.0 Chloride 107 Carbon Dioxide 25 Anion Gap 10.0 BUN 30 H Creatinine 1.5 H Estimated GFR (MDRD) 35 L Glucose 159 H Calcium 9.8 Total Bilirubin 1.0 AST 27 ALT 40 Alkaline Phosphatase 178 H Total Protein 7.4 Albumin 4.4 Globulin 3.0 Albumin/Globulin Ratio 1.5 Lipase 21 L Urine Color YELLOW Urine Clarity CLEAR Urine pH 5.0 Ur Specific [place] >=1.030 H Urine Protein >=300 H Urine Glucose (UA) NEGATIVE Urine Ketones TRACE Urine Occult Blood MODERATE H Urine Nitrite NEGATIVE Urine Bilirubin NEGATIVE Urine Urobilinogen 0.2 (NORMAL) Ur Leukocyte Esterase NEGATIVE Urine RBC 6-10 H Urine WBC 0-3 Ur Epithelial Cells RARE Renal Tubular Ur Squamous Epith Cells RARE Squamous Urine Bacteria Rare Urine Casts 0-2 Course Granular Ur Microscopic Review INDICATED Urine Culture Comments NOT INDICATED Urine Opiates Screen POSITIVE H Ur Oxycodone Screen NEGATIVE Urine Methadone Screen NEGATIVE Ur Propoxyphene Screen NEGATIVE Ur Barbiturates Screen NEGATIVE Ur Tricyclics Screen NEGATIVE Ur Phencyclidine Scrn NEGATIVE Ur Amphetamine Screen NEGATIVE U Methamphetamines Scrn NEGATIVE U Benzodiazepines Scrn NEGATIVE Urine Cocaine Screen NEGATIVE U Cannabinoids Screen NEGATIVE PD MEDICAL DECISION MAKING - ED course Complexity details: reviewed old records, reviewed results, re-evaluated patient, considered differential, d/w patient, d/w family ED course: Chronic diabetic gastroparesis. Feels better after multiple rounds of medication. Tolerating p.o. without difficulty. She request to go home at this time. She will follow-up with her doctor for further care. No emergency medical condition at this time. Patient counseled regarding signs and symptoms for which I believe and urgent re-evaluation would be necessary. Patient with good understanding of and agreement to plan and is comfortable going home at this time This document was made in part using voice recognition software. While efforts are made to proofread this document, sound alike and grammatical errors may occur. Departure - Departure Disposition: 01 Home, Self Care Clinical Impression: Nausea and vomiting Qualifiers: Vomiting type: unspecified Vomiting Intractability: unspecified Qualified Code(s): R11.2 - Nausea with vomiting, unspecified Condition: Good Instructions: ED Abdominal Pain Unkn Cause, ED Nausea Vomiting Follow-Up: Valerie Haque MD [Primary Care Provider] - Within 1 week Comments: Return if you worsen. Drink plenty of fluids. Eat small, low fat meals. You can discuss domperidone with your GI to see if this may be a good medication for you. Discharge Date/Time: 06/15/20 13:21
[2020-06-15 08:30] LABS: BASOPHILS % (AUTO) 0.3 %; EOSINOPHILS % (AUTO) 0.2 %; HGB - HEMOGLOBIN 13.1 g/dL (12.0-16.0); LYMPHOCYTES # (AUTO) 1.1 10^3/uL (1.5-3.5); LYMPHOCYTES % (AUTO) 9.7 %; MEAN CORPUSCULAR HEMOGLOBIN 29.5 pg (27.0-31.0); MEAN CORPUSCULAR HGB CONC 32.3 g/dL (32.0-36.0); MEAN CORPUSCULAR VOLUME 91.4 fL (81.0-99.0); MEAN PLATELET VOLUME 9.8 fL (7.9-10.8); MONOCYTES # (AUTO) 0.6 10^3/uL (0.0-1.0); NEUTROPHILS # (AUTO) 9.6 10^3/uL (1.5-6.6); NEUTROPHILS % (AUTO) 84.4 %; PLT - PLATELET COUNT 216 10^3/uL (130-450); RED BLOOD COUNT 4.44 10^6/uL (4.20-5.40); RED CELL DISTRIBUTION WIDTH 13.2 % (12.0-15.0); WHITE BLOOD COUNT 11.3 x10^3/uL (4.8-10.8)
[2020-06-15 08:43] LABS: ALBUMIN 4.4 g/dL (3.2-5.5); ALBUMIN/GLOBULIN RATIO 1.5 (1.0-2.2); CALCIUM 9.8 mg/dL (8.5-10.3); CREATININE 1.5 mg/dL (0.4-1.0); TOTAL PROTEIN 7.4 g/dL (6.7-8.2)
[2020-06-15] MEDS ORDERED: diphenhydrAMINE INJ 50 MG/ML VIAL IVP STA (08:49)
[2020-06-15] MEDS ORDERED: PROMETHAZINE INJ 25 MG in SODIUM CHLORIDE 0.9% 50 ML IV STA (09:43)
[2020-06-15] MEDS ORDERED: MORPHINE 2 MG/ML CARPUJECT IVP STA (09:43)
[2020-06-15 10:51] LABS: MUDS CUTOFF CONCENTRATIONS CUTOFF CONC BELOW:
[2020-06-15 10:53] LABS: BILIRUBIN,URINE NEGATIVE (NEGATIVE); GLUCOSE, URINE (UA) NEGATIVE (NEGATIVE); KETONES,URINE (UA) TRACE mg/dL (NEGATIVE); LEUKOCYTE ESTERASE, URINE NEGATIVE (NEGATIVE); NITRITE,URINE NEGATIVE (NEGATIVE); OCCULT BLOOD,URINE MODERATE (NEGATIVE); PROTEIN,URINE >=300 mg/dL (NEGATIVE); UROBILINOGEN,URINE 0.2 (NORMAL) E.U./dL (NORMAL)
[2020-06-15 10:55] LABS: CLARITY,URINE CLEAR (CLEAR)
[2020-06-15 11:07] LABS: SQUAMOUS EPITHELIAL CELL,UR RARE Squamous (<= Few)
[2020-06-15 11:08] LABS: BACTERIA,URINE Rare /HPF (None Seen); EPITHELIAL CELLS,UR RARE Renal Tubular /HPF (<= Few)
[2020-06-15 11:09] LABS: CASTS, URINE 0-2 Course Granular /LPF
[2020-06-15 11:10] LABS: AMPHETAMINE SCREEN,URINE NEGATIVE (NEGATIVE); BENZODIAZEPINES SCREEN, URINE NEGATIVE (NEGATIVE); COCAINE SCREEN URINE NEGATIVE (NEGATIVE); METHADONE SCREEN, URINE NEGATIVE (NEGATIVE); METHAMPHETAMINES SCREEN, URINE NEGATIVE (NEGATIVE); OPIATE SCREEN, URINE POSITIVE (NEGATIVE); OXYCODONE SCREEN, URINE NEGATIVE (NEGATIVE); PROPOXYPHENE SCREEN, URINE NEGATIVE (NEGATIVE); TRICYCLIC ANTIDEPRESSANT,URINE NEGATIVE (NEGATIVE)
[2020-06-15] MEDS ORDERED: PANTOPRAZOLE 40 MG VIAL IVP STA (11:40)
[2020-06-15] MEDS ORDERED: SUMAtriptan 6 MG/0.5 ML VIAL SUBQ STA (11:40)
[2020-06-15] MEDS ORDERED: MAG HYDROX/AL HYDROX/SIMETH 30 ML UDC PO STA (11:40)
[2020-06-15 13:05] VITALS: BP 145/81
== END 2020-06-15 13:21 | disposition home or self-care (01) ==
LOC: ED 07:47
DX: R11.2 Nausea with vomiting, unspecified (principal); E10.43 Type 1 diabetes mellitus with diabetic autonomic (poly)neuropathy; K31.84 Gastroparesis; Z79.4 Long term (current) use of insulin; K21.9 Gastro-esophageal reflux disease without esophagitis; I10 Essential (primary) hypertension; Z79.82 Long term (current) use of aspirin
CPT/HCPCS: 36415; 80053; 80306; 81001; 83690; 85025; 96361; 96365; 96372; 96375; 99284; 99285; A9270; J1170; J1200; J2765; J7040; 81003; 87086

== ENCOUNTER 2020-07-24 23:30 | Outpatient (CLI) | payer MEDICARE, OTHER | END 2020-07-24 23:31 | disposition critical access hospital (66) | LOC: EMS 23:30 | PROVIDERS: ATTEND Surgery | DX: R42 Dizziness and giddiness (principal); R61 Generalized hyperhidrosis; R51.9 Headache, unspecified | CPT/HCPCS: A0425; A0427 ==

== ENCOUNTER 2020-07-24 23:51 | Observation (INO) | payer MEDICARE, OTHER ==
[2020-07-25] MEDS ORDERED: ASPIRIN 325 MG TABLET PO STA (00:30)
[2020-07-25 00:42] LABS: BASOPHILS % (AUTO) 0.6 %; EOSINOPHILS # (AUTO) 0.1 10^3/uL (0.0-0.7); HGB - HEMOGLOBIN 11.6 g/dL (12.0-16.0); LYMPHOCYTES # (AUTO) 1.2 10^3/uL (1.5-3.5); LYMPHOCYTES % (AUTO) 16.9 %; MEAN CORPUSCULAR HEMOGLOBIN 30.1 pg (27.0-31.0); MEAN CORPUSCULAR HGB CONC 32.6 g/dL (32.0-36.0); MEAN CORPUSCULAR VOLUME 92.2 fL (81.0-99.0); MEAN PLATELET VOLUME 10.1 fL (7.9-10.8); MONOCYTES # (AUTO) 0.4 10^3/uL (0.0-1.0); MONOCYTES % (AUTO) 5.8 %; NEUTROPHILS # (AUTO) 5.5 10^3/uL (1.5-6.6); NEUTROPHILS % (AUTO) 75.4 %; PLT - PLATELET COUNT 175 10^3/uL (130-450); RED BLOOD COUNT 3.86 10^6/uL (4.20-5.40); RED CELL DISTRIBUTION WIDTH 12.7 % (12.0-15.0); WHITE BLOOD COUNT 7.2 x10^3/uL (4.8-10.8)
[2020-07-25 00:55] LABS: ALBUMIN 3.8 g/dL (3.2-5.5); ALBUMIN/GLOBULIN RATIO 1.5 (1.0-2.2); BILIRUBIN,TOTAL 0.7 mg/dL (0.2-1.0); CALCIUM 8.9 mg/dL (8.5-10.3); CREATININE 2.2 mg/dL (0.4-1.0); TOTAL PROTEIN 6.4 g/dL (6.7-8.2)
[2020-07-25] MEDS ORDERED: ONDANSETRON 4 MG/2 ML VIAL IVP PRN (03:02)
[2020-07-25] MEDS ORDERED: ACETAMINOPHEN 325 MG TABLET PO PRN (03:02)
[2020-07-25] MEDS ORDERED: SODIUM CHLORIDE FLUSH 0.9% 10 ML SYRINGE IVP PRN (03:02)
[2020-07-25] MEDS ORDERED: METOCLOPRAMIDE 10 MG/2 ML VIAL IVP PRN (03:14)
--- NOTE | 2020-07-25 03:16 | HISTORY & PHYSICAL EXAMINATION ---
Chief Complaint - Chief Complaint Chief Complaint: chest pain equivalence: diaphoresis, nausea History of Present Illness - Admitted From Admitted From:: [facility] - History Obtained From Records Reviewed: Yes History obtained from: Patient - History of Present Illness HPI Comment/Other: Patient is a 65-year-old female with medical history significant for diabetes mellitus type 2 on Lantus, aortic valve repair-TAVR, morbid obesity, obstructive sleep apnea on CPAP, hyperlipidemia, hypertension who presented to the ED via EMS with a sudden onset of dizziness, diaphoresis and stomach upset. This lasted about 15 minutes. Started about 10:45 PM last night. She reported vomiting 5 times. She denied chest pain, dyspnea, fever or chills. She had dinner around 5 PM. She denies any previous occurrence of this. Her TAVR Was 2 years ago at [facility]. Her cone sewer is Dr. Irina fontana At [facility]. In the ED work-up included an EKG which showed left bundle branch block however this is reported as old. She also had a troponin of 20 and a creatinine of 2.2. She has chronic kidney disease stage III. As a result of her presentation and for concern of being an atypical presentation of coronary disease she was presented for admission for chest pain rule out. At the time of my exam she was resting comfortably in bed. 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 She smoked. Patient's father had diabetes and history of MIs. Living arrangement: At home Living Situation: With spouse/s.o. Social History Notes: Patient lives at home with her . She is independent of activities of daily living. She does not smoke, use alcohol or recreational substances. - POLST Patient has POLST: No POLST Status: Full Code Meds/Allgy - Home Medications Home Medications: Ambulatory Orders Medication Instructions Recorded Confirmed Aspirin Chewable [[facility] [place] 81 mg PO ONCE 04/08/13 11/15/19 Aspirin] Omeprazole [PriLOSEC] 20 mg PO DAILY 04/08/13 11/15/19 Atorvastatin Calcium 40 mg PO QPM 08/22/15 11/15/19 lisinopriL [Lisinopril] 40 mg PO DAILY 08/22/15 11/15/19 Diphenoxylate/Atropine [Lomotil] 1 each PO QID PRN #12 tablet 08/28/19 11/15/19 Furosemide [Lasix] 20 mg PO DAILY 08/28/19 11/15/19 Insulin Glargine [Lantus Solostar] 25 unit SUBQ BID 08/28/19 11/15/19 amLODIPine [Norvasc] 10 mg PO DAILY 08/28/19 11/15/19 Dicyclomine [Bentyl] 10 mg PO QID PRN #15 capsule 10/04/19 11/15/19 Metoclopramide [Reglan] 10 mg PO Q6H PRN #30 tablet 01/16/20 Dicyclomine [Bentyl] 10 mg PO BID #30 capsule 02/11/20 Docusate Sodium 100 mg PO DAILY #30 capsule 02/11/20 Prochlorperazine Supp [Compazine 25 mg [place] Q6H PRN #10 supp 02/11/20 Supp] Promethazine [Phenergan] 25 mg PO Q6H PRN #10 tab 05/24/20 Promethazine Supp [Phenergan Supp] 25 mg [place] Q6H PRN #10 supp 06/13/20 - Allergies Allergies/Adverse Reactions: Allergies Allergy/AdvReac Type Severity Reaction Status Date / Time rosuvastatin calcium * Allergy Hives Verified 07/25/20 00:10 [From Crestor] Review of Systems - Constitutional Constitutional: reports: Diaphoresis. denies: Fatigue, Fever, Chills - Eyes Eyes: denies: Pain, Dipolpia - Ears, Nose & Throat Ears, Nose & Throat: denies: Ear pain, Hoarseness - Cardiovascular Cariovascular: reports: Edema (Trace to +1), Lightheadedness. denies: Irregular heart rate, Palpitations, Chest pain, Syncope, Exertional dyspnea, Decr. exe rcise tolerance - Respiratory Respiratory: denies: Cough, Sputum production, Wheezing, SOB at rest, SOB with exertion - Gastrointestinal Gastrointestinal: reports: Abdominal pain, Nausea, Vomiting. denies: Abdominal distention, Coffee grounds emesis, Reflux/heartburn - Genitourinary Genitourinary: denies: Dysuria, Frequency, Urgency, Hematuria - Musculoskeletal Musculoskeletal: denies: Muscle pain, Back pain, Muscle aches - Integumentary Integumentary: denies: Rash, Pruritis, Lesions - Neurological Neurological: denies: General weakness, Focal weakness, Headache - Psychiatric Psychiatric: denies: Depression, Anxiety - Endocrine Endocrine: denies: Polyuria, Polydypsia - Hematologic/Lymphatic Hematologic/Lymphatic: denies: Anemia, Bruising, Petechiae Prior Level of Functionality: She is independent of activities of daily living Exam - Vital Signs Vital Signs: Vital Signs x48h Temp Pulse Resp BP Pulse Ox 07/25/20 02:37 78 14 148/66 H 98 07/25/20 00:40 80 18 142/65 H 99 07/24/20 23:53 36.5 C 80 20 146/61 H 96 - Physical Exam General Appearance: positive: No acute distress, Alert Eyes Bilateral: positive: PERRL, EOMI ENT: positive: No signs of dehydration Neck: positive: No JVD, Trachea midline Respiratory: positive: Chest non-tender, No respiratory distress, Breath sounds nml. negative: Wheezes, Rales, Rhonchi Cardiovascular: positive: Regular rate & rhythm, Systolic murmur Abdomen: positive: Non-tender, No organomegaly, Nml bowel sounds, No distention. negative: Guarding, Rebound Back: positive: Nml inspection Skin: positive: Color nml, No rash, Warm, Dry Extremities: positive: Non-tender, Full ROM, Nml appearance, Pedal edema (Trace to +1) Neurologic/Psychiatric: positive: Oriented x3, CN's nml (2-12), Motor nml, Mood/affect nml Conclusion/Plan - Problem List (1) Chest pain, rule out acute myocardial infarction Conclusion/Plan: Patient has a left bundle branch block on EKG which is reported as old. In light of patient's age, female, history of diabetes mellitus, there is significant concern for particularly coronary artery disease. Initial troponin was 20. Will trend times tomorrow. If negative will consider doing a stress test. Patient might only be able to do an exercise stress test due to her chronic kidney disease and a current creatinine of 2.2. patient currently n.p.o. with IV hydration of D5 half-normal saline at 75 mils per hour. (2) Hyperlipidemia Conclusion/Plan: Continue patient's atorvastatin (3) Obstructive sleep apnea on CPAP Conclusion/Plan: CPAP ordered (4) Chronic kidney disease, stage III (moderate) Conclusion/Plan: Patient's creatinine is 2.2. Patient receiving IV hydration with D5 half-normal saline at 75 ml/hr (5) Hypertension Conclusion/Plan: Patient is on amlodipine and furosemide. We will hold furosemide for now while gently hydrating the patient (6) Diabetes Conclusion/Plan: Patient takes Lantus 35 units twice daily. This has been ordered. Patient is currently n.p.o. Patient is receiving D5 half-normal saline at 75 mils per hour. Accu-Cheks every 6 hours and sliding scale insulin also ordered. (7) Diabetic gastroparesis Conclusion/Plan: Reglan 5 mg IV every 6 hours as needed (8) Morbid obesity with BMI of 45.0-49.9, adult Conclusion/Plan: Chronic. Patient has undergone a gastric sleeve surgery in the past - Lab Results Fish Bones: 07/25/20 00:31 07/25/20 00:31 Core Measures - Anticipated LOS I expect patient to be DC'd or transferred within 96 hours.: Yes - DVT/VTE - Prophylaxis VTE/DVT Device ordered at admit?: Yes VTE/DVT Prophylaxis med ordered at admit?: Yes
[2020-07-25] MEDS ORDERED: DEXTROSE 5%-0.45% NACL 1,000 ML IV SCH (04:00)
[2020-07-25 06:01] LABS: BASOPHILS % (AUTO) 0.3 %; EOSINOPHILS % (AUTO) 0.4 %; HGB - HEMOGLOBIN 11.1 g/dL (12.0-16.0); LYMPHOCYTES # (AUTO) 1.2 10^3/uL (1.5-3.5); LYMPHOCYTES % (AUTO) 16.4 %; MEAN CORPUSCULAR HEMOGLOBIN 29.8 pg (27.0-31.0); MEAN CORPUSCULAR HGB CONC 32.6 g/dL (32.0-36.0); MEAN CORPUSCULAR VOLUME 91.7 fL (81.0-99.0); MEAN PLATELET VOLUME 10.4 fL (7.9-10.8); MONOCYTES # (AUTO) 0.3 10^3/uL (0.0-1.0); MONOCYTES % (AUTO) 4.9 %; NEUTROPHILS # (AUTO) 5.4 10^3/uL (1.5-6.6); NEUTROPHILS % (AUTO) 77.6 %; PLT - PLATELET COUNT 182 10^3/uL (130-450); RED BLOOD COUNT 3.72 10^6/uL (4.20-5.40); RED CELL DISTRIBUTION WIDTH 12.6 % (12.0-15.0)
[2020-07-25 06:09] LABS: CALCIUM 8.9 mg/dL (8.5-10.3); CREATININE 1.9 mg/dL (0.4-1.0)
[2020-07-25] MEDS: INSULIN REGULAR HUMAN 300 UNIT/3 ML VIAL SUBQ SCH ×2 (06:38→11:05)
--- NOTE | 2020-07-25 06:58 | ED Physician Documentation ---
History of Present Illness - Stated complaint Stated Complaint: DIZZY/VARGAS /VOMITING - Chief complaint Chief Complaint: Neuro - Additonal information Additional information: 5-year-old woman with past medical history of diabetes, high blood pressure, hyperlipidemia, Aortic insufficiency status post TAVR presents with sudden onset lightheadedness, nausea/vomiting x1 nonbloody nonbilious, headache, and diaphoresis starting at 2300. Patient was given 4 mg of Zofran and 500 cc IV fluids by EMS with improvement in symptoms on arrival. Patient states that she was feeling normal earlier in the day on July 24. Denies chest pain fever cough leg swelling back pain abdominal pain or diarrhea. Review of Systems Ten Systems: 10 systems reviewed and negative Constitutional: denies: Fever, Chills Eyes: denies: Loss of vision Ears: denies: Loss of hearing Nose: denies: Congestion Cardiac: denies: Chest pain / pressure Respiratory: denies: Dyspnea, Cough GI: reports: Nausea, Vomiting. denies: Abdominal Pain Neurologic: reports: Generalized weakness, Near syncope PD PAST MEDICAL HISTORY - Past Medical History Past Medical History: Yes Cardiovascular: Hypertension, High cholesterol, Murmur, Arrhythmia Respiratory: Sleep apnea, CPAP use Neuro: None Endocrine/Autoimmune: Type 2 diabetes GI: GERD, Chronic constipation, Diverticulitis, Other CUSTOMER EXPERT: None : Kidney stones, Other HEENT: None Psych: None Musculoskeletal: Chronic back pain Derm: Eczema Other Past Medical History: Left BBB - Past Surgical History Past Surgical History: Yes General: Cholecystectomy, Gastric surgery Cardiovascular: Valve replacement - Present Medications Home Medications: Ambulatory Orders Medication Instructions Recorded Confirmed Aspirin Chewable [[place] 81 mg PO ONCE 04/08/13 11/15/19 Aspirin] Omeprazole [PriLOSEC] 20 mg PO DAILY 04/08/13 11/15/19 Atorvastatin Calcium 40 mg PO QPM 08/22/15 11/15/19 lisinopriL [Lisinopril] 40 mg PO DAILY 08/22/15 11/15/19 Diphenoxylate/Atropine [Lomotil] 1 each PO QID PRN #12 tablet 08/28/19 11/15/19 Furosemide [Lasix] 20 mg PO DAILY 08/28/19 11/15/19 Insulin Glargine [Lantus Solostar] 25 unit SUBQ BID 08/28/19 11/15/19 amLODIPine [Norvasc] 10 mg PO DAILY 08/28/19 11/15/19 Dicyclomine [Bentyl] 10 mg PO QID PRN #15 capsule 10/04/19 11/15/19 Metoclopramide [Reglan] 10 mg PO Q6H PRN #30 tablet 01/16/20 Dicyclomine [Bentyl] 10 mg PO BID #30 capsule 02/11/20 Docusate Sodium 100 mg PO DAILY #30 capsule 02/11/20 Prochlorperazine Supp [Compazine 25 mg DC Q6H PRN #10 supp 02/11/20 Supp] Promethazine [Phenergan] 25 mg PO Q6H PRN #10 tab 05/24/20 Promethazine Supp [Phenergan Supp] 25 mg DC Q6H PRN #10 supp 06/13/20 - Allergies Allergies/Adverse Reactions: Allergies Allergy/AdvReac Type Severity Reaction Status Date / Time rosuvastatin calcium * Allergy Hives Verified 07/25/20 00:10 [From [facility]] - Social History Does the pt smoke?: No Smoking Status: Never smoker Does the pt drink ETOH?: No Does the pt have substance abuse?: No - Immunizations Immunizations are current?: Yes - POLST Patient has POLST: No POLST Status: Full Code PD ED PE NORMAL - Vitals Vital signs reviewed: Yes - General General: Alert and oriented X 3 - HEENT HEENT: Atraumatic, PERRL, EOMI, Moist mucous membranes - Neck Neck: Supple, no meningeal sign, No JVD - Cardiac Cardiac: RRR - Respiratory Respiratory: No respiratory distress, Clear bilaterally - Abdomen Abdomen: Non tender, Non distended - Female Female : Deferred - Rectal Rectal: Deferred - Back Back: No spinal TTP - Derm Derm: Normal color - Extremities Extremities: No edema - Neuro Neuro: Alert and oriented X 3, supply coordinator 2-12 intact, No motor deficit, No sensory de ficit, Normal speech - Psych Psych: Normal mood, Normal affect Results - Vitals Vitals: Vital Signs - 24 hr 07/24/20 07/25/20 07/25/20 23:53 00:40 02:37 Temperature 36.5 C Heart Rate 80 80 78 Respiratory 20 18 14 Rate Blood Pressure 146/61 H 142/65 H 148/66 H O2 Saturation 96 99 98 Oxygen O2 Source Room air - Labs Labs: Laboratory Tests 07/25/20 07/25/20 07/25/20 00:31 00:31 00:31 WBC 7.2 RBC 3.86 L Hgb 11.6 L Hct 35.6 L MCV 92.2 MCH 30.1 MCHC 32.6 RDW 12.7 Plt Count 175 MPV 10.1 Neut # (Auto) 5.5 Lymph # (Auto) 1.2 L Cottle # (Auto) 0.4 Eos # (Auto) 0.1 Baso # (Auto) 0.0 Absolute Nucleated RBC 0.00 Nucleated RBC % 0.0 Sodium 141 Potassium 3.7 Chloride 110 Carbon Dioxide 22 Anion Gap 9.0 BUN 43 H Creatinine 2.2 H Estimated GFR (MDRD) 22 L Glucose 189 H Calcium 8.9 Total Bilirubin 0.7 AST 22 ALT 24 Alkaline Phosphatase 107 Troponin I High Sens 19.7 H* Total Protein 6.4 L Albumin 3.8 Globulin 2.6 Albumin/Globulin Ratio 1.5 Lipase 43 PD MEDICAL DECISION MAKING - ED course ED course: D5-year-old woman with history of TAVR, dm, htn, hld presented with episode of dizziness, nausea/vomiting and diaphoresis, sudden in onset and unprovoked. EKG, chest x-ray, lab work nonfocal. Due to high risk features of her presentation the decision was made to admit for further cardiac monitoring and evaluation. Discussed with patient, , and hospitalist who are all agreeable. Departure - Departure Disposition: ED Place in Observation Clinical Impression: Dizziness, Headache, SILAS (acute kidney injury), Nausea, Diaphoresis Condition: Stable Discharge Date/Time: 07/25/20 03:50
[2020-07-25] MEDS ORDERED: PANTOPRAZOLE 40 MG TABLET PO SCH (07:00)
--- NOTE | 2020-07-25 08:26 | XRAY Report ---
PROCEDURE: Chest 1 View X-Ray INDICATIONS: dizziness, nausea TECHNIQUE: One view of the chest was acquired. COMPARISON: None FINDINGS: Surgical changes and devices: Previous TAVR. Lungs and pleura: No pleural effusions or pneumothorax. Lungs are clear. Mediastinum: Mediastinal contours appear normal. Heart size is normal. Bones and chest wall: No suspicious bony lesions. Overlying soft tissues appear unremarkable. IMPRESSION: No acute cardiopulmonary disease process. Reviewed by: Sameera Martinez MD, PhD on 07/25/2020 8:25 AM [facility] Approved by: Sameera Martinez MD, PhD on 07/25/2020 8:25 AM [facility] Station ID: [id number]
[2020-07-25] MEDS ORDERED: HEPARIN 5,000 UNIT/ML VIAL SUBQ SCH (09:00)
[2020-07-25] MEDS ORDERED: SODIUM CHLORIDE FLUSH 0.9% 10 ML SYRINGE IVP SCH (09:00)
[2020-07-25] MEDS ORDERED: INSULIN GLARGINE 300 UNIT/3 ML PEN SUBQ SCH (09:00)
--- NOTE | 2020-07-25 09:15 | PHARMACY PROGRESS NOTE ---
- Best Possible Medication History Admit Date and Time: 07/25/20 0302 Processed by: Pharmacy Medication History completed: Yes Patient Interview: Completed Secondary Source(s): Physician records, Pharmacy records, Insurance records As the person ultimately responsible for medication therapy, providers are able to order a medication from an existing home medication list in [facility] via the "Reconcile Routine" prior to Confirmation of that medication by clinical support manager. Such practice is discouraged except when the physician, in their clinical judgment, deems that a medical need exists for a medication without regard to previous use.
--- NOTE | 2020-07-25 12:45 | CARDIAC PROCEDURE NOTE ---
DATE OF SERVICE: 07/25/2020 Physician: hCeryl Kee MD INDICATION: Chest pain. CARDIAC RISK FACTORS: Postmenopausal status, diabetes, hypertension. Patient has a TAVR done about 2 years ago. She had coronary angiogram before that which showed no CAD. DESCRIPTION OF PROCEDURE: After signing informed consent, the patient underwent a Sathya-protocol treadmill stress test with nuclear myocardial perfusion imaging. RESTING HEART RATE: 80. PEAK HEART RATE: 145 (93% predicted maximum heart rate for age). RESTING BLOOD PRESSURE: 153/81. PEAK BLOOD PRESSURE: 203/87 (the patient had no morning medicines). The patient exercised for 3 minutes 30 seconds on a Sathya-protocol all at stage 1. The patient had no chest pain, shortness of breath, dizziness, or nausea. She rated her perceived exertion at 14/20 at peak on the Ed scale. Oxygen saturation was 96-98% on room air throughout the test. RESTING EKG: Normal sinus rhythm, left bundle-branch block. EKG AT PEAK: No ST or T-wave changes can be reported with the presence of left bundle-branch block at rest. SUMMARY 1. Abnormal resting EKG with left bundle-branch block present. 2. Cannot comment on ST segments or T waves in the presence of left bundle- branch block. 3. Fair exercise tolerance. 4. Nuclear images were reported separately and showed no areas of ischemia and normal LVEF of 59%. cc: MD Vivi Crouch MD TD: 07/25/2020 12:35 MTDD
--- NOTE | 2020-07-25 14:07 | Nuclear Medicine Report ---
PROCEDURE: Rest and exercise myocardial perfusion SPECT with gated imaging and ejection fraction INDICATIONS: CP RADIOPHARMACEUTICAL: 15.1 mCi Tc-99m Myoview IV at rest and 47.0 mCi Tc-99m Myoview IV at peak exerc ise. [id number] was performed. TECHNIQUE: Radiopharmaceutical was injected at peak stress test, and also at rest. SPECT images wer e obtained. SPECT myocardial perfusion images were displayed in short axis, horizontal long axis, an d vertical long axis views. Gated images were reviewed using AutoQUANT software. COMPARISON: None available. CARDIAC STRESS: A standard Sathya treadmill exercise tolerance test was performed by the patient under the supervision of an attending staff. FINDINGS: Raw data: There is good myocardial labeling by radiotracer. No significant motion artifacts. Lung- to-heart ratio is (normal is less than 0.38 for tetrafosmin tracer). Left ventricle function: Gated images demonstrate normal left ventricle wall thickening. No segment al wall motion abnormality. No transient ischemic dilation; TID is 0.94ormal less than 1.3). The le ft ventricle resting end-diastolic volume is 86mL. Left ventricle stress ejection fraction is 59 %. Normal values are above 45%. Myocardial perfusion: There is normal distribution of activity in the left and right ventricular james cardium. No fixed or reversible perfusion defects. IMPRESSION: 1. No evidence of myocardial ischemia. 2. Normal left ventricular function. PQRS ATTESTATIONS: Measure 322 - Is this imaging test primarily performed on a low-risk surgery patient for preoperative evaluation within 30 days preceding their low-risk non-cardiac surgery? Low-risk surgery is defined as cardiac or myocardial infarction less than 1%, including (but not limited to) endoscopic pr ocedures, superficial procedures, cataract surgery, and excisional breast surgery: Answer: No Measure 323 - Is this imaging test performed primarily for the monitoring of an asymptomatic patient who had percutaneous coronary intervention on the visit date or within 2 years of the visit date? An swer: No Measure 324 - Is this imaging test performed primarily for the initial detection and risk assessment on an asymptomatic, low coronary heart disease patient? Low CHD risk definition = clinicians should consider the maximum number of available patient factors used to estimate risk based on [place] (A TP III criteria), typically age, gender, diabetes, smoking status, and use of blood pressure medicati on, and integrate age appropriate estimates for missing elements, such as LDL or standard blood press ure. Answer: No Reviewed by: Ailin Robert MD on 07/25/2020 2:06 PM PST Approved by: Ailin Robert MD on 07/25/2020 2:06 PM PST Station ID: [id number]
--- NOTE | 2020-07-25 14:18 | Discharge Plan ---
Discharge Plan Problem Reviewed?: Yes Disposition: Home, Self Care Condition: Stable Diet: Diabetic Activity Restrictions: Activity as Tolerated Shower Restrictions: No Driving Restrictions: Yes (See Cardiology for evaluation & clearance to drive) Instruction Topics: ED Near Syncope Vasovagal Health Concerns: You were here in Observation status to check for coronary artery disease as the cause of your symptoms of dizziness, lightheadedness, vertigo, nausea and pallor. The lab results showed no heart attack. The stress test result showed no evidence of coronary artery disease (coronary blockages). Your symptoms sound more like an arrhythmia (abnormal heart rhythm), that caused a drop in blood pressure or drop in heart rate which then made you get nauseated and pale. You need to see your Patient Representative in follow-up [facility] for further evaluation. You will need outpatient Holter monitoring or possible EP study (heart rhythm evaluation that is invasive). Resume all your usual pre-hospital medications. You should not be driving a car or operating heavy machinery if you get recurrence of the symptoms. If you have new or recurrent symptoms, call your PCP or Patient Representative for advice or come to the ER. No Smoking: If you smoke, Please STOP! Call for help. Follow-up with: Valerie Haque MD [Primary Care Provider] -
--- NOTE | 2020-07-25 15:30 | DISCHARGE SUMMARY ---
Discharge Summary Admit Date: 07/25/20 Discharge Date: 07/25/20 Discharging Provider: Dr Cheryl Kee Primary Care Provider: Dr Valerie Chance, Dr Jacinto (Cardiology, [facility]) Code Status: Attempt Resuscitation Condition at Discharge: Stable Discharge Disposition: 01 Home, Self Care - HPI History of Present Illness: From the admission H&P of Dr Tawanna Ayers: Patient is a 65-year-old female with medical history significant for diabetes m ellitus type 2 on Lantus, aortic valve repair-TAVR, morbid obesity, obstructive sleep apnea on CPAP, hyperlipidemia, hypertension who presented to the ED via EMS with a sudden onset of dizziness, diaphoresis and stomach upset. This lasted about 15 minutes. Started about 10:45 PM last night. She reported vomiting 5 times. She denied chest pain, dyspnea, fever or chills. She had dinner around 5 PM. She denies any previous occurrence of this. Her TAVR was 2 years ago at [facility]. Her intervention manager is Dr. Rodgers at [place]. In the ED, work-up included an EKG which showed left bundle branch block however this is reported as old. She also had an hs-troponin of 20 and a creatinine of 2.2. She has chronic kidney disease stage III. As a result of her presentation and for concern of being an atypical presentation of coronary disease, she was presented for admission for chest pain rule out. At the time of my exam she was resting comfortably in bed. - HOSPITAL COURSE Hospital Course: (1) Atypical chest pain She actually experienced no chest pain. The left bundle branch block on EKG was reported as old. In light of patient's age, obesity, history of diabetes mellitus, HTN and hyperlipidemia, there was significant concern for coronary artery disease. Undergoing a TAVR, 2 years ago, included a pre-op coronary angiogram and she stated that she had no blockages found on cardiac cath then. Her troponins were unremarkable here. She underwent a treadmill stress test with nuclear myocardial imaging. That showed no areas of cardiac ischemia and a normal LVEF of 59%. She was advised to be seen by her [facility] for evaluation for arrhythmia, which was more consistent with her presenting symptom. She was advised not to drive until evaluated and cleared by her [facility]. (2) Hyperlipidemia We continued patient's Atorvastatin (3) Obstructive sleep apnea on CPAP CPAP ordered to use while here (but she did not stay overnight). (4) Chronic kidney disease, stage III (moderate) Patient's creatinine is 2.2. We gave 1/2 day of IV hydration with D5 half- normal saline at 75 ml/hr (5) Hypertension Patient is on Amlodipine and Furosemide. We held furosemide while gently hydrating the patient. (6) Diabetes Patient takes Lantus 35 units twice daily. While npo she got iv D5 half-normal saline at 75 mils per hour. Accu-Cheks every 6 hours and sliding scale insulin coverage also ordered. (7) Diabetic gastroparesis Reglan 5 mg IV every 6 hours prn was ordered but not needed. She stated that work-up was underway. (8) Morbid obesity with BMI of 45.0-49.9, adult Patient has undergone a gastric sleeve surgery in the past - ALLERGIES Allergies/Adverse Reactions: Allergies Allergy/AdvReac Type Severity Reaction Status Date / Time rosuvastatin calcium * Allergy Hives Verified 07/25/20 00:10 [From [facility]] - MEDICATIONS Home Medications: Ambulatory Orders Medication Instructions Recorded Confirmed Aspirin Chewable [[facility] [place] 81 mg PO ONCE 04/08/13 07/25/20 Aspirin] Omeprazole [PriLOSEC] 20 mg PO DAILY 04/08/13 07/25/20 Atorvastatin Calcium 40 mg PO QPM 08/22/15 07/25/20 lisinopriL [Lisinopril] 40 mg PO DAILY 08/22/15 07/25/20 Furosemide [Lasix] 20 mg PO DAILY 08/28/19 07/25/20 Insulin Glargine [Lantus Solostar] 40 unit SUBQ BID 08/28/19 07/25/20 amLODIPine [Norvasc] 10 mg PO DAILY 08/28/19 07/25/20 Metoclopramide [Reglan] 10 mg PO Q6H PRN #30 tablet 01/16/20 07/25/20 Prochlorperazine Supp [Compazine 25 mg MO Q6H PRN #10 supp 02/11/20 07/25/20 Supp] Promethazine [Phenergan] 25 mg PO Q6H PRN #10 tab 05/24/20 07/25/20 Promethazine Supp [Phenergan Supp] 25 mg MO Q6H PRN #10 supp 06/13/20 07/25/20 - PHYSICAL EXAM AT DISCHARGE General Appearance: positive: No acute distress, Alert Eyes Bilateral: positive: Normal inspection, EOMI ENT: positive: ENT inspection nml, No signs of dehydration Neck: positive: Nml inspection, No JVD Respiratory: positive: No respiratory distress, Breath sounds nml Cardiovascular: positive: Regular rate & rhythm, No murmur Abdomen: positive: Non-tender, Other (Obese with a pannus) Extremities: positive: Non-tender, No pedal edema Neurologic/Psychiatric: positive: Oriented x3 (Non-focal) - LABS Result Diagrams: 07/25/20 05:35 07/25/20 05:35 - DIAGNOSTIC IMAGING Diagnostic Imaging Results: Final report reviewed - FOLLOW UP Follow Up: See PCP as previously scheduled. See Cardiologisrt [facility] for further evaluation (for possible arrhythmias). - TIME SPENT Time Spent in Discharge (Minutes): 35
[2020-07-25 15:46] VITALS: BP 145/78
[2020-07-25] MEDS ORDERED: INSULIN ASPART 300 UNIT/3 ML PEN SUBQ SCH (17:00)
== END 2020-07-25 16:30 | disposition home or self-care (01) ==
LOC: EDUNIT# → ED 23:51 → MS2 07-25 03:02
PROVIDERS: ADMIT Internal Medicine; ATTEND Internal Medicine
DX: I49.9 Cardiac arrhythmia, unspecified (principal); E66.01 Morbid (severe) obesity due to excess calories; Z68.42 Body mass index [BMI] 45.0-49.9, adult; G47.33 Obstructive sleep apnea (adult) (pediatric); E78.5 Hyperlipidemia, unspecified; I44.7 Left bundle-branch block, unspecified; I12.9 Hypertensive chronic kidney disease with stage 1 through stage 4 chronic kidney disease, or unspecified chronic kidney disease; E11.22 Type 2 diabetes mellitus with diabetic chronic kidney disease; N18.30 Chronic kidney disease, stage 3 unspecified; E11.43 Type 2 diabetes mellitus with diabetic autonomic (poly)neuropathy; K31.84 Gastroparesis; K21.9 Gastro-esophageal reflux disease without esophagitis; K59.09 Other constipation; G89.29 Other chronic pain; M54.9 Dorsalgia, unspecified; Z98.84 Bariatric surgery status; Z20.828 Contact with and (suspected) exposure to other viral communicable diseases; Z95.2 Presence of prosthetic heart valve; Z79.4 Long term (current) use of insulin; Z79.82 Long term (current) use of aspirin; Z79.899 Other long term (current) drug therapy
CPT/HCPCS: 36415; 71045; 78452; 80048; 80053; 83690; 84484; 85025; 93005; 93017; 96365; 96366; 96372; 96375; 96376; 99284; 99285; A9270; A9500; G0378; J1815; U0004

== ENCOUNTER 2021-06-19 16:30 | Outpatient (CLI) | payer MEDICARE, OTHER | END 2021-06-19 16:31 | disposition home or self-care (01) | LOC: COV 16:30 | PROVIDERS: ATTEND Family Medicine | DX: R05 Cough (principal); R53.83 Other fatigue; R09.81 Nasal congestion; J34.89 Other specified disorders of nose and nasal sinuses; Z20.822 Contact with and (suspected) exposure to COVID-19 ==

== ENCOUNTER 2021-12-06 05:23 | Emergency (ER) | payer MEDICARE, OTHER ==
[2021-12-06] MEDS ORDERED: DROPERIDOL 5 MG/2 ML VIAL IVP STA (05:27)
[2021-12-06] MEDS ORDERED: SODIUM CHLORIDE 0.9% 1,000 ML IV STA (05:27)
--- NOTE | 2021-12-06 05:45 | ED Physician Documentation ---
History of Present Illness - Stated complaint Stated Complaint: VONITING SINCE 0800 T-1 - Chief complaint Chief Complaint: Abd Pain - History obtained from History obtained from: Patient - Additonal information Additional information: The patient comes to the emergency department with chief complaint of vomiting since 8:00 yesterday morning. She states she has some right upper quadrant abdominal pain but it feels more like sore muscles from the vomiting. The patient has had a cholecystectomy and denies any liver issues. She states that she has not been tolerating dairy recently and thinks she had some dairy and that it did not agree with her. Patient denies any fevers or chills. She denies any changes in her bowel habits. No other complaints at this time. Review of Systems Ten Systems: 10 systems reviewed and negative Constitutional: reports: Reviewed and negative Eyes: reports: Reviewed and negative Ears: reports: Reviewed and negative Nose: reports: Reviewed and negative Throat: reports: Reviewed and negative Cardiac: reports: Reviewed and negative Respiratory: reports: Reviewed and negative GI: reports: Abdominal Pain, Nausea, Vomiting : reports: Reviewed and negative Skin: reports: Reviewed and negative Musculoskeletal: reports: Reviewed and negative Neurologic: reports: Reviewed and negative Psychiatric: reports: Reviewed and negative Endocrine: reports: Reviewed and negative Immunocompromised: reports: Reviewed and negative PD PAST MEDICAL HISTORY - Past Medical History Cardiovascular: Hypertension, High cholesterol, Murmur, Arrhythmia Respiratory: Sleep apnea, CPAP use Neuro: None Endocrine/Autoimmune: Type 2 diabetes GI: GERD, Chronic constipation, Diverticulitis, 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 : Kidney stones, Other HEENT: None Psych: None Musculoskeletal: Chronic back pain Derm: Eczema - Past Surgical History Past Surgical History: Yes General: Cholecystectomy, Gastric surgery Cardiovascular: Valve replacement - Present Medications Home Medications: Ambulatory Orders Medication Instructions Recorded Confirmed Atorvastatin Calcium 40 mg PO QPM 08/22/15 12/06/21 lisinopriL [Lisinopril] 40 mg PO DAILY 08/22/15 12/06/21 Furosemide [Lasix] 20 mg PO DAILY 08/28/19 12/06/21 Insulin Glargine [Lantus Solostar] 40 unit SUBQ BID 08/28/19 12/06/21 amLODIPine [Norvasc] 10 mg PO DAILY 08/28/19 12/06/21 Ondansetron Odt [Zofran] 4 mg TL Q6H PRN #10 tablet 12/06/21 - Allergies Allergies/Adverse Reactions: Allergies Allergy/AdvReac Type Severity Reaction Status Date / Time rosuvastatin calcium * Allergy Hives Verified 12/06/21 05:31 [From [facility]] - Social History Does the pt smoke?: No Smoking Status: Never smoker Does the pt drink ETOH?: No Does the pt have substance abuse?: No - Immunizations Immunizations are current?: Yes - POLST Patient has POLST: No POLST Status: Full Code PD ED PE NORMAL - Vitals Vital signs reviewed: Yes - General General: Alert and oriented X 3, No acute distress, Well developed/nourished, Other (The patient appears moderately uncomfortable, occasionally dry heaving, but otherwise no apparent distress.) - HEENT HEENT: Atraumatic, PERRL, EOMI, Moist mucous membranes - Neck Neck: Supple, no meningeal sign - Cardiac Cardiac: RRR, No murmur, Strong equal pulses - Respiratory Respiratory: No respiratory distress, Clear bilaterally - Abdomen Abdomen: Soft, Non tender, Non distended - Derm Derm: Normal color, Warm and dry, No rash - Extremities Extremities: No deformity, No edema, No calf tenderness / cord - Neuro Neuro: Alert and oriented X 3, Other (Grossly intact) - Psych Psych: Normal mood, Normal affect Results - Vitals Vitals: Vital Signs - 24 hr 12/06/21 12/06/21 05:27 06:30 Heart Rate 99 93 Respiratory 18 16 Rate Blood Pressure 182/77 H 138/106 H O2 Saturation 94 95 Oxygen O2 Source Nasal cannula Oxygen Flow Rate 2.5 - Labs Labs: Laboratory Tests 12/06/21 12/06/21 12/06/21 05:47 06:07 06:19 WBC 10.2 RBC 3.99 L Hgb 12.4 Hct 37.6 MCV 94.2 MCH 31.1 H MCHC 33.0 RDW 13.0 Plt Count 189 MPV 10.3 Neut # (Auto) 8.9 H Lymph # (Auto) 0.8 L [place] # (Auto) 0.5 Eos # (Auto) 0.0 Baso # (Auto) 0.0 Absolute Nucleated RBC 0.00 Nucleated RBC % 0.0 Sodium 142 Potassium 4.3 Chloride 105 Carbon Dioxide 24 Anion Gap 13.0 BUN 29 H Creatinine 1.6 H Estimated GFR (MDRD) 32 L Glucose 210 H POC Whole Bld Glucose 210 H Calcium 9.2 Total Bilirubin 0.8 AST 35 ALT 28 Alkaline Phosphatase 100 Total Protein 6.7 Albumin 3.8 Globulin 2.9 Albumin/Globulin Ratio 1.3 Lipase 36 PD MEDICAL DECISION MAKING - ED course Complexity details: reviewed results, re-evaluated patient, considered differential, d/w patient ED course: The patient was treated symptomatically with IV fluids and droperidol, and worked up with laboratory studies. Departure - Departure Clinical Impression: Vomiting Qualifiers: Vomiting type: bilious vomiting Nausea presence: with nausea Qualified Code(s): R11.14 - Bilious vomiting Condition: Stable Instructions: ED Nausea Vomiting Prescriptions: Ondansetron Odt [Zofran] 4 mg TL Q6H PRN #10 tablet PRN Reason: Nausea / Vomiting Comments: Your labs show that you are mildly dehydrated but otherwise actually look pretty good. Your blood sugar is moderately elevated at 210, but this is not da ngerously high at this point in time. You may take the Zofran prescribed for your nausea, if needed. Please follow-up with your primary care physician if you are not feeling better in the next few days.
[2021-12-06 06:05] LABS: ALBUMIN 3.8 g/dL (3.2-5.5); ALBUMIN/GLOBULIN RATIO 1.3 (1.0-2.2); BILIRUBIN,TOTAL 0.8 mg/dL (0.2-1.0); CALCIUM 9.2 mg/dL (8.5-10.3); CREATININE 1.6 mg/dL (0.4-1.0); POTASSIUM 4.3 mmol/L (3.5-5.0); TOTAL PROTEIN 6.7 g/dL (6.7-8.2)
[2021-12-06 06:24] LABS: BASOPHILS % (AUTO) 0.1 %; HCT - HEMATOCRIT 37.6 % (37.0-47.0); HGB - HEMOGLOBIN 12.4 g/dL (12.0-16.0); LYMPHOCYTES # (AUTO) 0.8 10^3/uL (1.5-3.5); LYMPHOCYTES % (AUTO) 7.5 %; MEAN CORPUSCULAR HEMOGLOBIN 31.1 pg (27.0-31.0); MEAN CORPUSCULAR VOLUME 94.2 fL (81.0-99.0); MEAN PLATELET VOLUME 10.3 fL (7.9-10.8); MONOCYTES # (AUTO) 0.5 10^3/uL (0.0-1.0); MONOCYTES % (AUTO) 5.2 %; NEUTROPHILS # (AUTO) 8.9 10^3/uL (1.5-6.6); NEUTROPHILS % (AUTO) 86.8 %; PLT - PLATELET COUNT 189 10^3/uL (130-450); RED BLOOD COUNT 3.99 10^6/uL (4.20-5.40); WHITE BLOOD COUNT 10.2 x10^3/uL (4.8-10.8)
[2021-12-06 08:34] VITALS: BP 139/66
== END 2021-12-06 08:34 | disposition home or self-care (01) ==
LOC: ED 05:23
DX: R11.14 Bilious vomiting (principal); I10 Essential (primary) hypertension; E11.9 Type 2 diabetes mellitus without complications; Z79.4 Long term (current) use of insulin
CPT/HCPCS: 36415; 80053; 83690; 85025; 96374; 99282

== ENCOUNTER 2021-12-07 09:53 | Emergency (ER) | payer MEDICARE, OTHER ==
[2021-12-07] MEDS ORDERED: SODIUM CHLORIDE 0.9% 1,000 ML IV STA (10:55)
[2021-12-07] MEDS ORDERED: METOCLOPRAMIDE 10 MG/2 ML VIAL IVP STA (10:55)
[2021-12-07] MEDS ORDERED: HYDROmorphone 1 MG/ML CARPUJECT IVP STA (10:55)
--- NOTE | 2021-12-07 10:57 | ED Physician Documentation ---
PD HPI NVD - Stated complaint Stated Complaint: N/V - Chief complaint Chief Complaint: Abd Pain - History obtained from History obtained from: Patient - History of Present Illness Timing - onset: How many days ago (2) Timing - duration: Days (2) Timing - details: Gradual onset, Still present Associated symptoms: Abdominal pain Contributing factors: Diabetes, Other (gastroparesis). No: Recent antibiotics, Alcohol use, Anticoagulated Similar symptoms before: Diagnosis (Diabetic gastroparesis) Recently seen: Emergency Dept (Seen in the emerge department last night given Inapsine and saline with improvement) - Additonal information Additional information: 66-year-old diabetic female presents to the emergency department with abdominal pain nausea and vomiting. She has had this symptoms for 2 days and she has 10 out of 10 pain to her abdomen. She states that she was in the emergency department yesterday she received some intravenous Inapsine and fluid and improved. By about 6 PM yesterday she was back to vomiting and she has had vomiting and pain all night. She feels dehydrated and she is in pain. Review of Systems Constitutional: denies: Fever Eyes: denies: Decreased vision Ears: denies: Ear pain Nose: denies: Congestion Throat: denies: Sore throat Cardiac: denies: Chest pain / pressure, Palpitations Respiratory: denies: Dyspnea, Cough GI: reports: Abdominal Pain, Nausea, Vomiting : denies: Dysuria, Frequency PD PAST MEDICAL HISTORY - Past Medical History Cardiovascular: Hypertension, High cholesterol, Murmur, Arrhythmia Respiratory: Sleep apnea, CPAP use Neuro: None Endocrine/Autoimmune: Type 2 diabetes GI: GERD, Chronic constipation, Diverticulitis, Other [employer]: None : Kidney stones, Other HEENT: None Psych: None Musculoskeletal: Chronic back pain Derm: Eczema - Past Surgical History Past Surgical History: Yes General: Cholecystectomy, Gastric surgery Cardiovascular: Valve replacement - Present Medications Home Medications: Ambulatory Orders Medication Instructions Recorded Confirmed Atorvastatin Calcium 40 mg PO QPM 08/22/15 12/06/21 lisinopriL [Lisinopril] 40 mg PO DAILY 08/22/15 12/06/21 Furosemide [Lasix] 20 mg PO DAILY 08/28/19 12/06/21 Insulin Glargine [Lantus Solostar] 40 unit SUBQ BID 08/28/19 12/06/21 amLODIPine [Norvasc] 10 mg PO DAILY 08/28/19 12/06/21 Ondansetron Odt [Zofran] 4 mg TL Q6H PRN #10 tablet 12/06/21 Metoclopramide [Reglan] 10 mg PO Q6H PRN #30 tablet 12/07/21 Promethazine Supp [Phenergan Supp] 25 mg [place] Q6HR PRN #12 supp 12/07/21 - Allergies Allergies/Adverse Reactions: Allergies Allergy/AdvReac Type Severity Reaction Status Date / Time rosuvastatin calcium * Allergy Hives Verified 12/07/21 10:16 [From Crestor] - Social History Does the pt smoke?: No Smoking Status: Never smoker Does the pt drink ETOH?: No Does the pt have substance abuse?: No - Immunizations Immunizations are current?: Yes - POLST Patient has POLST: No POLST Status: Full Code PD ED PE NORMAL - Vitals Vital signs reviewed: Yes (Tachypneic and hypertensive) - General General: Alert and oriented X 3, Well developed/nourished, Other (The patient appears to be in pain with mission commander 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 and flattened affect and she is clutching an emesis bag.) - HEENT HEENT: Atraumatic, PERRL - Neck Neck: Supple, no meningeal sign, No bony TTP - Cardiac Cardiac: RRR, No murmur - Respiratory Respiratory: No respiratory distress, Clear bilaterally - Abdomen Abdomen: Normal bowel sounds, Soft, Non distended, No organomegaly, Other (Mild generalized tenderness without specific point tenderness) - Back Back: No CVA TTP, No spinal TTP - Derm Derm: Normal color, Warm and dry, No rash - Extremities Extremities: No deformity, No edema - Neuro Neuro: Alert and oriented X 3, 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, No motor deficit, No sensory deficit, Normal speech Motor: Obeys Commands Verbal: Oriented - Psych Psych: Normal mood, Normal affect Results - Vitals Vitals: Vital Signs - 24 hr 12/07/21 10:12 Temperature 36.4 C L Heart Rate 88 Respiratory 28 H Rate Blood Pressure 176/75 H O2 Saturation 92 Oxygen O2 Source Nasal cannula - Labs Labs: Laboratory Tests 12/07/21 12/07/21 12/07/21 10:22 10:44 10:58 WBC 13.4 H RBC 4.07 L Hgb 12.4 Hct 38.4 MCV 94.3 MCH 30.5 MCHC 32.3 RDW 12.9 Plt Count 185 MPV 9.9 Neut # (Auto) 11.1 H Lymph # (Auto) 1.1 L [place] # (Auto) 1.1 H Eos # (Auto) 0.0 Baso # (Auto) 0.0 Absolute Nucleated RBC 0.00 Nucleated RBC % 0.0 Sodium 142 Potassium 3.9 Chloride 106 Carbon Dioxide 23 Anion Gap 13.0 BUN 33 H Creatinine 1.6 H Estimated GFR (MDRD) 32 L Glucose 166 H POC Whole Bld Glucose 164 H Calcium 9.1 Total Bilirubin 0.9 AST 52 H ALT 34 Alkaline Phosphatase 90 Total Protein 6.6 L Albumin 3.7 Globulin 2.9 Albumin/Globulin Ratio 1.3 Lipase 26 Urine Color Urine Clarity Urine pH Ur Specific [place] Urine Protein Urine Glucose (UA) Urine Ketones Urine Occult Blood Urine Nitrite Urine Bilirubin Urine Urobilinogen Ur Leukocyte Esterase Urine RBC Urine WBC Ur Squamous Epith Cells Urine Bacteria Ur Microscopic Review Urine Culture Comments 12/07/21 11:56 WBC RBC Hgb Hct MCV MCH MCHC RDW Plt Count MPV Neut # (Auto) Lymph # (Auto) [place] # (Auto) Eos # (Auto) Baso # (Auto) Absolute Nucleated RBC Nucleated RBC % Sodium Potassium Chloride Carbon Dioxide Anion Gap BUN Creatinine Estimated GFR (MDRD) Glucose POC Whole Bld Glucose Calcium Total Bilirubin AST ALT Alkaline Phosphatase Total Protein Albumin Globulin Albumin/Globulin Ratio Lipase Urine Color YELLOW Urine Clarity CLEAR Urine pH 5.5 Ur Specific [place] >=1.030 H Urine Protein >=300 H Urine Glucose (UA) NEGATIVE Urine Ketones NEGATIVE Urine Occult Blood LARGE H Urine Nitrite NEGATIVE Urine Bilirubin NEGATIVE Urine Urobilinogen 0.2 (NORMAL) Ur Leukocyte Esterase NEGATIVE Urine RBC 0-5 Urine WBC 0-3 Ur Squamous Epith Cells FEW Squamous Urine Bacteria Rare Ur Microscopic Review INDICATED Urine Culture Comments NOT INDICATED Procedures - IVC sono (time) 1050 Bedside IVC sono: IVC measures (cm) (1.21), Dehydration (Estimated 1 L deficit.) PD MEDICAL DECISION MAKING - ED course Complexity details: considered differential, d/w patient ED course: 66-year-old female with history of diabetic gastroparesis presents to the emergency department again with symptoms of pain and vomiting. She has had improvement previously with Inapsine and with Reglan and today she is given 10 mg of Reglan as well as a milligram of Dilaudid intravenously. I did interrogate her inferior vena cava and found that despite getting a liter of fluid last night she is still a liter deficit this morning. She is given another liter of fluid. Departure - Departure Disposition: 01 Home, Self Care Clinical Impression: Cyclical vomiting, Dehydration determined by examination Condition: Stable Instructions: ED Diet Vomiting Diarrhea Follow-Up: LUIS ANTONIO DOWELL MD [Physician No Access] - Prescriptions: Promethazine Supp [Phenergan Supp] 25 mg [place] Q6HR PRN #12 supp PRN Reason: Nausea / Vomiting Metoclopramide [Reglan] 10 mg PO Q6H PRN #30 tablet PRN Reason: Nausea / Vomiting Comments: Vladimir, today it looks like you have again this cyclical vomiting. Today we have prescribed some Reglan and as well as some Phenergan suppositories. It is recommended to use 1 or the other of these as they do have some additive properties which can cause additional side effects. These medications [facility] been [facility] in [place].
[2021-12-07 11:02] LABS: BASOPHILS % (AUTO) 0.1 %; HCT - HEMATOCRIT 38.4 % (37.0-47.0); HGB - HEMOGLOBIN 12.4 g/dL (12.0-16.0); LYMPHOCYTES # (AUTO) 1.1 10^3/uL (1.5-3.5); LYMPHOCYTES % (AUTO) 8.1 %; MEAN CORPUSCULAR HEMOGLOBIN 30.5 pg (27.0-31.0); MEAN CORPUSCULAR HGB CONC 32.3 g/dL (32.0-36.0); MEAN CORPUSCULAR VOLUME 94.3 fL (81.0-99.0); MEAN PLATELET VOLUME 9.9 fL (7.9-10.8); MONOCYTES # (AUTO) 1.1 10^3/uL (0.0-1.0); MONOCYTES % (AUTO) 8.5 %; NEUTROPHILS # (AUTO) 11.1 10^3/uL (1.5-6.6); NEUTROPHILS % (AUTO) 82.8 %; PLT - PLATELET COUNT 185 10^3/uL (130-450); RED BLOOD COUNT 4.07 10^6/uL (4.20-5.40); RED CELL DISTRIBUTION WIDTH 12.9 % (12.0-15.0); WHITE BLOOD COUNT 13.4 x10^3/uL (4.8-10.8)
[2021-12-07 11:04] LABS: ALBUMIN 3.7 g/dL (3.2-5.5); ALBUMIN/GLOBULIN RATIO 1.3 (1.0-2.2); BILIRUBIN,TOTAL 0.9 mg/dL (0.2-1.0); CALCIUM 9.1 mg/dL (8.5-10.3); CREATININE 1.6 mg/dL (0.4-1.0); POTASSIUM 3.9 mmol/L (3.5-5.0); TOTAL PROTEIN 6.6 g/dL (6.7-8.2)
[2021-12-07 12:03] LABS: BILIRUBIN,URINE NEGATIVE (NEGATIVE); GLUCOSE, URINE (UA) NEGATIVE (NEGATIVE); KETONES,URINE (UA) NEGATIVE (NEGATIVE); LEUKOCYTE ESTERASE, URINE NEGATIVE (NEGATIVE); NITRITE,URINE NEGATIVE (NEGATIVE); OCCULT BLOOD,URINE LARGE (NEGATIVE); PH,URINE 5.5 PH (5.0-7.5); PROTEIN,URINE >=300 mg/dL (NEGATIVE); UROBILINOGEN,URINE 0.2 (NORMAL) E.U./dL (NORMAL)
[2021-12-07 12:25] LABS: BACTERIA,URINE Rare /HPF (None Seen); CLARITY,URINE CLEAR (CLEAR); RBC,URINE 0-5 /HPF (0-5); SQUAMOUS EPITHELIAL CELL,UR FEW Squamous (<= Few); WBC,URINE 0-3 /HPF (0-5)
[2021-12-07 13:26] VITALS: BP 160/80
== END 2021-12-07 13:25 | disposition home or self-care (01) ==
LOC: ED 09:53
DX: E86.0 Dehydration (principal); R11.15 Cyclical vomiting syndrome unrelated to migraine; E11.9 Type 2 diabetes mellitus without complications; Z79.4 Long term (current) use of insulin; Z98.84 Bariatric surgery status
CPT/HCPCS: 36415; 80053; 81001; 83690; 85025; 96361; 96374; 96375; 99282; 99283; J1170; J2765; 81003; 87086